=== PATIENT | female | born 1965 | race Caucasian/White ===

== ENCOUNTER 2019-05-28 09:38 | Inpatient (IN) | payer BC, OTHER ==
[2019-05-28] MEDS ORDERED: ACETAMINOPHEN TAB 500 MG TAB PO STA (10:12)
[2019-05-28] MEDS ORDERED: LEVOFLOXACIN 750MG-D5W PMX 750 MG in DEXTROSE/WATER 1 150ML.BAG IVPB STA (10:12)
[2019-05-28] MEDS ORDERED: VANCOMYCIN IV PER PHARMACY 1 EACH MISC MISCELLANE PRN (10:12)
[2019-05-28] MEDS ORDERED: VANCOMYCIN 2,000 MG in SODIUM CHLORIDE 0.9% 500 ML 500 ML IVPB STA (10:17)
[2019-05-28] MEDS: SODIUM CHLORIDE 0.9% 500 ML 500 ML IV SCH ×4 (10:35→13:22)
[2019-05-28 10:40] LABS: Basophils # (A) 0.1 k/uL (0-0.2); Basophils % (A) 1 %; Eosinophils # (A) 0.2 k/uL (0-0.7); Eosinophils % (A) 2 %; HCT 38.5 % (34.0-46.0); HGB 12.2 gm/dL (11.4-16.0); Lymphocytes % (A) 10 %; MCH 28.4 pg (25.0-35.0); MCHC 31.7 g/dL (31.0-37.0); MCV 89.6 fL (80.0-100.0); Mean Platelet Volume 6.7; Monocytes # (A) 0.6 k/uL (0-1.0); Monocytes % (A) 6 %; Neutrophils # (A) 7.7 k/uL (1.3-7.7); Neutrophils % (A) 80 %; Platelet Count 526 k/uL (150-450); RBC 4.29 m/uL (3.80-5.40); RDW 15.2 % (11.5-15.5); WBC 9.7 k/uL (3.8-10.6)
--- NOTE | 2019-05-28 10:45 | ED ---
Skin/Abscess/FB HPI - General Chief complaint: Skin/Abscess/Foreign Body Stated complaint: Cellulitis Time Seen by Provider: 05/28/19 09:55 Source: patient, RN notes reviewed, old records reviewed Mode of arrival: ambulatory Limitations: no limitations - History of Present Illness Initial comments: Patient is a 4-year-old female who presents emergency Department stay for evaluation with complaints of left lower extremity swelling or redness. Patient reports that she's been having symptoms for the past 2 weeks. She's been on oral Bactrim for the past week without any significant improvement. Patient states that she's had some chills. She's had history of recurrent cellulitis leg. - Related Data Home Medications Medication Instructions Recorded Confirmed Furosemide [Lasix] 40 mg PO DAILY 05/28/19 05/28/19 Lisinopril 40 mg PO DAILY 05/28/19 05/28/19 Metoprolol Tartrate [Lopressor] 100 mg PO BID 05/28/19 05/28/19 glipiZIDE [Glucotrol] 5 mg PO DAILY 05/28/19 05/28/19 hydrALAZINE HCL 10 mg PO TID 05/28/19 05/28/19 metFORMIN HCL 850 mg PO BID 05/28/19 05/28/19 Allergies Allergy/AdvReac Type Severity Reaction Status Date / Time Penicillins Allergy Unknown Unknown Verified 05/28/19 10:47 Childhood Review of Systems ROS Statement: Those systems with pertinent positive or pertinent negative responses have been documented in the HPI. ROS Other: All systems not noted in ROS Statement are negative. Past Medical History Past Medical History: Diabetes Mellitus, Hypertension Additional Past Medical History / Comment(s): venous leg ulcers,tongue tumor History of Any Multi-Drug Resistant Organisms: None Reported Past Surgical History: No Surgical Hx Reported Past Anesthesia/Blood Transfusion Reactions: No Reported Reaction Past Psychological History: No Psychological Hx Reported Smoking Status: Former smoker Past Alcohol Use History: None Reported Past Drug Use History: None Reported - Past Family History Father Family Medical History: Cancer Mother Family Medical History: Cancer General Exam - General Exam Comments Initial Comments: Is an 54-year-old female. No acute distress. Alert and oriented 3. Limitations: no limitations General appearance: alert, in no apparent distress Head exam: Present: atraumatic Eye exam: Present: normal appearance, PERRL, EOMI. Absent: scleral icterus, conjunctival injection, periorbital swelling ENT exam: Present: normal exam, mucous membranes moist Neck exam: Present: normal inspection. Absent: tenderness, meningismus, lymphadenopathy Respiratory exam: Present: normal lung sounds bilaterally. Absent: respiratory distress, wheezes, rales, rhonchi, stridor Cardiovascular Exam: Present: regular rate, normal rhythm, normal heart sounds. Absent: systolic murmur, diastolic murmur, rubs, gallop, clicks GI/Abdominal exam: Present: soft, normal bowel sounds. Absent: distended, tenderness, guarding, rebound, rigid Extremities exam: Present: normal inspection, full ROM, normal capillary refill. Absent: tenderness, pedal edema, joint swelling, calf tenderness Left Lower Leg exam: Present: tenderness, swelling, erythema (Circumferential erythema with evidence of ulcerations over the dorsum of the anterior lower leg. Legs indurated.). Absent: normal inspection Ankle exam: Present: swelling Neurovascular tendon exam: Present: no vascular compromise (Capillary refills less than 2 seconds. Dorsalis pedis pulse palpable.) Gait: observed and normal Back exam: Present: normal inspection Neurological exam: Present: alert, oriented X3, CN II-XII intact Psychiatric exam: Present: normal affect, normal mood Skin exam: Present: warm, dry, intact, normal color. Absent: rash Course Vital Signs 05/28/19 09:42 Temperature 98.0 F Pulse Rate 87 Respiratory 20 Rate Blood Pressure 169/91 O2 Sat by Pulse 97 Oximetry Medical Decision Making - Medical Decision Making 34-year-old female with close to 2 weeks of left lower extremity redness and swelling. She is on oral Bactrim for the past week with no significant improvement. At this time she has circumferential cellulitis. Ultrasound was completed and negative for DVT. Patient x-ray shows evidence of soft tissue swelling concern for cellulitis. White blood cell count is within normal limits. Vital signs are stable. Given 5 patient's been on oral Bactrim for the past week with significant sialitis we admit the Patient for failure of outpatient treatment. She was given 1 dose of Levaquin due to ALLERGY to penicillins, blood cultures were completed. She started on vancomycin as well. Patient will be admitted this time consult to infectious disease. is also noted to have elevated potassium of 5.5. EKG was performed. Patient was given a dose of Kayexalate. Also noted signs of acute kidney injury, be on a 50, currently 2.62. This is increased from patient's last labs. Patient is given 2 L bolus. - Lab Data Result diagrams: 05/28/19 10:21 05/28/19 10:21 Lab Results 05/28/19 05/28/19 05/28/19 Range/Units 10:21 10:21 10:21 WBC 9.7 (3.8-10.6) k/uL RBC 4.29 (3.80-5.40) m/uL Hgb 12.2 (11.4-16.0) gm/dL Hct 38.5 (34.0-46.0) % MCV 89.6 (80.0-100.0) fL MCH 28.4 (25.0-35.0) pg MCHC 31.7 (31.0-37.0) g/dL RDW 15.2 (11.5-15.5) % Plt Count 526 H (150-450) k/uL Neutrophils % 80 % Lymphocytes % 10 % Monocytes % 6 % Eosinophils % 2 % Basophils % 1 % Neutrophils # 7.7 (1.3-7.7) k/uL Lymphocytes # 1.0 (1.0-4.8) k/uL Monocytes # 0.6 (0-1.0) k/uL Eosinophils # 0.2 (0-0.7) k/uL Basophils # 0.1 (0-0.2) k/uL PT 9.8 (9.0-12.0) sec INR 0.9 (<1.2) APTT 19.7 L (22.0-30.0) sec Sodium 144 (137-145) mmol/L Potassium 5.5 H (3.5-5.1) mmol/L Chloride 109 H (98-107) mmol/L Carbon Dioxide 24 (22-30) mmol/L Anion Gap 11 mmol/L BUN 50 H (7-17) mg/dL Creatinine 2.42 H (0.52-1.04) mg/dL Est GFR (CKD-EPI)AfAm 25 (>60 ml/min/1.73 sqM) Est GFR (CKD-EPI)NonAf 22 (>60 ml/min/1.73 sqM) Glucose 97 (74-99) mg/dL Plasma Lactic Acid Alon (0.7-2.0) mmol/L Calcium 9.2 (8.4-10.2) mg/dL Total Bilirubin 0.5 (0.2-1.3) mg/dL AST 30 (14-36) U/L ALT 27 (9-52) U/L Alkaline Phosphatase 126 (38-126) U/L Total Protein 7.7 (6.3-8.2) g/dL Albumin 3.4 L (3.5-5.0) g/dL Urine Color Urine Appearance (Clear) Urine pH (5.0-8.0) Ur Specific [place] (1.001-1.035) Urine Protein (Negative) Urine Glucose (UA) (Negative) Urine Ketones (Negative) Urine Blood (Negative) Urine Nitrite (Negative) Urine Bilirubin (Negative) Urine Urobilinogen (<2.0) mg/dL Ur Leukocyte Esterase (Negative) 05/28/19 05/28/19 Range/Units 10:27 10:46 WBC (3.8-10.6) k/uL RBC (3.80-5.40) m/uL Hgb (11.4-16.0) gm/dL Hct (34.0-46.0) % MCV (80.0-100.0) fL MCH (25.0-35.0) pg MCHC (31.0-37.0) g/dL RDW (11.5-15.5) % Plt Count (150-450) k/uL Neutrophils % % Lymphocytes % % Monocytes % % Eosinophils % % Basophils % % Neutrophils # (1.3-7.7) k/uL Lymphocytes # (1.0-4.8) k/uL Monocytes # (0-1.0) k/uL Eosinophils # (0-0.7) k/uL Basophils # (0-0.2) k/uL PT (9.0-12.0) sec INR (<1.2) APTT (22.0-30.0) sec Sodium (137-145) mmol/L Potassium (3.5-5.1) mmol/L Chloride (98-107) mmol/L Carbon Dioxide (22-30) mmol/L Anion Gap mmol/L BUN (7-17) mg/dL Creatinine (0.52-1.04) mg/dL Est GFR (CKD-EPI)AfAm (>60 ml/min/1.73 sqM) Est GFR (CKD-EPI)NonAf (>60 ml/min/1.73 sqM) Glucose (74-99) mg/dL Plasma Lactic Acid Alon 1.1 (0.7-2.0) mmol/L Calcium (8.4-10.2) mg/dL Total Bilirubin (0.2-1.3) mg/dL AST (14-36) U/L ALT (9-52) U/L Alkaline Phosphatase (38-126) U/L Total Protein (6.3-8.2) g/dL Albumin (3.5-5.0) g/dL Urine Color Colorless Urine Appearance Clear (Clear) Urine pH 5.0 (5.0-8.0) Ur Specific [place] 1.007 (1.001-1.035) Urine Protein Negative (Negative) Urine Glucose (UA) Negative (Negative) Urine Ketones Negative (Negative) Urine Blood Negative (Negative) Urine Nitrite Negative (Negative) Urine Bilirubin Negative (Negative) Urine Urobilinogen <2.0 (<2.0) mg/dL Ur Leukocyte Esterase Negative (Negative) - Radiology Data Radiology results: report reviewed Ultrasound is negative for DVT in left lower extremity. Tib-fib x-ray shows soft tissue swelling. Correlating for cellulitis. Also arthritis noted. Disposition Clinical Impression: Left leg cellulitis, Failure of outpatient treatment, Diabetes, MANINDER (acute kidney injury), Hyperkalemia Disposition: ADMITTED IP TO THIS HOSP Condition: Stable Is patient prescribed a controlled substance at d/c from ED?: No Referrals: Candida Aquino MD [Primary Care Provider] - 1-2 days Time of Disposition: 11:28
[2019-05-28 10:49] LABS: Albumin 3.4 g/dL (3.5-5.0); Calcium 9.2 mg/dL (8.4-10.2); Potassium 5.5 mmol/L (3.5-5.1); Total Bilirubin 0.5 mg/dL (0.2-1.3); Total Protein 7.7 g/dL (6.3-8.2)
[2019-05-28 10:58] LABS: Appearance,Urine Clear (Clear); Bilirubin,Urine Negative (Negative); Blood,Urine Negative (Negative); Color,Urine Colorless; Glucose,Urine (UA) Negative (Negative); Ketones,Urine Negative (Negative); Leukocyte Esterase,Urine Negative (Negative); Nitrite,Urine Negative (Negative); Protein,Urine Negative (Negative); Specific Gravity,Urine 1.007 (1.001-1.035); Urobilinogen,Urine <2.0 mg/dL (<2.0)
[2019-05-28 10:58] LABS: INR 0.9 (<1.2); Prothrombin Time 9.8 sec (9.0-12.0)
[2019-05-28 10:59] LABS: Partial Thromboplastin Time 19.7 sec (22.0-30.0)
--- NOTE | 2019-05-28 11:08 | XR ---
Left leg HISTORY: Pain, erythema, swelling 2 views of the left leg and 4 images Osteophytic change is present in the left knee. Soft tissue swelling is noted. Bone mineralization is reduced. Alignment is maintained. No fracture or dislocation. There is a plantar calcaneal spur. Ost eophytic change also present tibiotalar joint. IMPRESSION: Soft tissue swelling, correlate for cellulitis. Osteoarthritis.
--- NOTE | 2019-05-28 11:19 | US ---
EXAMINATION TYPE: US venous doppler duplex LE LT DATE OF EXAM: 05/28/2019 10:14 AM COMPARISON: NONE CLINICAL HISTORY: Pain. Left lower leg redness and swelling. Hx cellulitis and open wound. No hx bl ood clots or on blood thinners. SIDE PERFORMED: Left TECHNIQUE: The lower extremity deep venous system is examined utilizing real time linear array sonog malinda with graded compression, doppler sonography and color-flow sonography. VESSELS IMAGED: External Iliac Vein (EIV) Common Femoral Vein Deep Femoral Vein Greater Saphenous Vein * Femoral Vein Popliteal Vein Small Saphenous Vein * Proximal Calf Veins- limited visualization (* superficial vessels) Left Leg: Negative for DVT Grayscale, color doppler, spectral doppler imaging performed of the deep veins of the left lower extr emity. There is normal flow, compressibility, vascular waveforms. IMPRESSION: No ultrasound evidence for acute DVT in the left lower extremity.
[2019-05-28] MEDS ORDERED: SODIUM POLYSTYRENE SULFONATE 15 GM/60 ML BOTTLE PO STA (11:27)
[2019-05-28] MEDS ORDERED: ONDANSETRON 4 MG/2 ML VIAL IVP PRN (12:01)
[2019-05-28] MEDS ORDERED: NALOXONE 0.4 MG/ML 1 ML VIAL IV PRN (12:01)
[2019-05-28] MEDS ORDERED: ACETAMINOPHEN TAB 325 MG TAB PO PRN (12:01)
[2019-05-28] MEDS: Acetaminophen-Codeine 300-30mg TAB PO PRN ×3 (13:49→23:39)
[2019-05-28] MEDS: SODIUM CHLORIDE 0.9% 1,000 ML IV SCH ×2 (14:12→20:43)
[2019-05-28] MEDS ORDERED: METOPROLOL TARTRATE 25 MG TAB PO STA (15:31)
[2019-05-28 16:03] VITALS: BMI 40.7
[2019-05-28 17:24] LABS: Glucose,Whole Blood 128 mg/dL (75-99)
[2019-05-28] MEDS: metFORMIN 850 MG TAB PO SCH (20:38)
[2019-05-28] MEDS: hydrALAZINE HCL 10 MG TAB PO SCH (20:38)
[2019-05-28] MEDS: METOPROLOL TARTRATE 50 MG TAB PO SCH (20:42)
[2019-05-28 21:40] LABS: Glucose,Whole Blood 134 mg/dL (75-99)
--- NOTE | 2019-05-28 23:05 | HP ---
HISTORY AND PHYSICAL CHIEF COMPLAINT: Progressive cellulitis of the lower extremities. HISTORY OF PRESENT ILLNESS: This is another visit for this 54-year-old white female. She has diabetes mellitus and kidney disease. She has had this problem before and has been treated in this hospital as an outpatient, but it steadily was getting worse and causing more and more pain and discomfort. It is worse in the left leg than the right. REVIEW OF SYSTEMS: She has had no CVAs, TIAs, neurologic problems, change in vision or hearing, shaking, chills, chest pain, shortness of breath, cough, hemoptysis, sputum production, murmurs, rheumatic fever, angina, infarctions, etc. She does have high blood pressure. She has had no abdominal pain, food intolerance, nausea, vomiting, hematemesis, melena, hematochezia, colitis, diverticulosis, diverticulitis, hemorrhoids, jaundice, dysuria, hematuria, incontinence, etc. Her diabetes is apparently fairly well controlled. Past medical history, family history, personal and social histories reveal that she is: ALLERGIES: PENICILLIN. CURRENT MEDICATIONS: Include: Lasix 40 mg once a day, glipizide 5 mg once a day, hydralazine 10 mg t.i.d., lisinopril 40 mg once a day, metformin 850 mg b.i.d., and metoprolol 100 mg b.i.d. Surgically she has had she had tumor removed from her tongue and had delivery of 1 child in the past. She is awake. She has had only 1 and 1 delivery. She does not smoke. PHYSICAL EXAM: Blood pressure is 169/91 with a pulse of 87, respirations 20 and she is afebrile. In general, she appeared to be well developed, well nourished, in no acute distress. Skin color is normal. Skin is warm, dry. Lymph nodes are not enlarged. Head, ears, eyes, nose, mouth, and throat were normal. Neck veins are not distended. Thyroid is not enlarged. Chest is clear. Cardiac exam is normal sinus rhythm and no murmurs or extra sounds. The abdomen is slightly protuberant, soft, nontender without visceromegaly or masses. Extremities demonstrated extensive cellulitis and edema in both lower legs between the ankles and the knees, which is much worse on the left than on the right. There is some weeping on the left. Neurologically she is intact. Pulses good. IMPRESSION: 1. Cellulitis of the lower extremities. 2. Diabetes mellitus. 3. Hypertension. 4. Chronic kidney disease. PLAN: 1. Bed rest. 2. IV fluids and IV antibiotics. 3. Consult with Infectious Disease and Med renal. DEMETRICE / PHILL: [id number] /
[2019-05-29 07:13] LABS: Glucose,Whole Blood 176 mg/dL (75-99)
[2019-05-29] MEDS: oxyCODONE-APAP 5-325MG 1 EACH TAB PO PRN ×4 (07:36→23:48)
[2019-05-29] MEDS: LISINOPRIL 20 MG TAB PO SCH (07:37)
[2019-05-29] MEDS: FUROSEMIDE 40 MG TAB PO SCH (07:37)
[2019-05-29] MEDS: hydrALAZINE HCL 10 MG TAB PO SCH ×3 (07:37→20:20)
[2019-05-29] MEDS: glipiZIDE 5 MG TAB PO SCH (07:37)
[2019-05-29] MEDS: metFORMIN 850 MG TAB PO SCH (07:37)
[2019-05-29] MEDS: METOPROLOL TARTRATE 50 MG TAB PO SCH ×2 (07:37→20:20)
--- NOTE | 2019-05-29 07:53 | P.CONS ---
History of Present Illness - Reason for Consult Consult date: 05/28/19 Left lower extremity cellulitis Requesting physician: Pete Kuo - Chief Complaint Left leg pain swelling and redness x few days - History of Present Illness Patient is 54-year-old female past medical history significant for left lower extremity cellulitis presenting to the ER at [facility] with chief complaints of left leg swelling redness and pain the patient says she was recently treated with an antibiotic by mouth and she did have some initial improvement however over the last few days she noticed to have more swelling redness and pain to the left leg syndrome the pain to be more of sharp/ burning pain with intensity 6 out of 10 and no radiation patient currently do not have any blisters or any open wound or any drainage she has been complaining of some chills but denies high-grade fever with the symptoms patient was evaluated by the ER physician patient did have lower extremity Doppler was negative for DVT patient did not have high-grade fever, her white count was normal patient did have elevated creatinine 2.4 patient has been started on IV vancomycin and did received a dose of Levaquin in the ER because of penicillin ALLERGY infectious disease was consulted for further recommendations regarding antibiotics Review of Systems Positive points has been mentioned in HPI rest of the systems are negative Past Medical History Past Medical History: Diabetes Mellitus, Eye Disorder, Hypertension, Renal Disease, Vascular Disorder Additional Past Medical History / Comment(s): NIDDM type II, neuropathy bilateral feet, recurrent cellulitis bilateral legs with left leg worse, past bilateral venous leg ulcers, varicosities bilaterally, 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 History of Any Multi-Drug Resistant Organisms: None Reported Past Surgical History: Tonsillectomy Additional Past Surgical History / Comment(s): Peripheral access/procedure to improve blood flow thru tongue x3 Past Anesthesia/Blood Transfusion Reactions: No Reported Reaction Smoking Status: Never smoker - Past Family History Father Family Medical History: Cancer Additional Family Medical History / Comment(s): Father had throat cancer. He is . He was a smoker. Mother Family Medical History: Cancer Additional Family Medical History / Comment(s): Mother had breast and lung cancer. She was a smoker. She is . Medications and Allergies Home Medications Medication Instructions Recorded Confirmed Type Furosemide [Lasix] 40 mg PO DAILY 05/28/19 05/28/19 History Lisinopril 40 mg PO DAILY 05/28/19 05/28/19 History Metoprolol Tartrate [Lopressor] 100 mg PO BID 05/28/19 05/28/19 History glipiZIDE [Glucotrol] 5 mg PO DAILY 05/28/19 05/28/19 History hydrALAZINE HCL 10 mg PO TID 05/28/19 05/28/19 History metFORMIN HCL 850 mg PO BID 05/28/19 05/28/19 History Allergies Allergy/AdvReac Type Severity Reaction Status Date / Time Penicillins Allergy Unknown Unknown Verified 05/28/19 10:47 Childhood Physical Exam Vitals: Vital Signs Temp Pulse Pulse Pulse Resp BP BP 05/29/19 06:13 97.7 F 82 15 05/28/19 21:30 97.8 F 88 20 05/28/19 17:40 18 05/28/19 16:15 98.2 F 88 20 181/101 05/28/19 15:30 97.7 F 87 18 168/98 05/28/19 13:45 98.0 F 76 16 164/89 05/28/19 09:42 98.0 F 87 20 169/91 BP Pulse Ox 05/29/19 06:13 167/106 05/28/19 21:30 166/78 98 05/28/19 17:40 05/28/19 16:15 97 05/28/19 15:30 96 05/28/19 13:45 99 05/28/19 09:42 97 Intake and Output 05/28/19 05/29/19 05/29/19 22:59 06:59 14:59 Intake Total 200 Balance 200 Intake: Oral 200 Other: # Voids 2 GENERAL DESCRIPTION: Middle-aged female lying in bed, no distress. No tachypnea or accessory muscle of respiration use. HEENT: Shows Pallor , no scleral icterus. Oral mucous membrane is dry. No pharyngeal erythema or thrush NECK: Trachea central, no thyromegaly. LUNGS: Unlabored breathing. Clear to auscultation anteriorly. No wheeze or crackle. HEART: S1, S2, regular rate and rhythm. No loud murmur ABDOMEN: Soft, no tenderness , guarding or rigidity, no organomegaly EXTREMITIES: Diffuse swelling and redness of her left leg with warmth no open wound or any drainage SKIN: No rash, no masses palpable. NEUROLOGICAL: The patient is awake, alert, oriented x3, mood and affect normal. Results CBC & Chem 7: 05/28/19 10:21 05/28/19 10:21 Labs: Abnormal Lab Results - Last 24 Hours (Table) 05/28/19 05/28/19 05/28/19 Range/Units 10:21 10:21 10:21 Plt Count 526 H (150-450) k/uL APTT 19.7 L (22.0-30.0) sec Potassium 5.5 H (3.5-5.1) mmol/L Chloride 109 H (98-107) mmol/L BUN 50 H (7-17) mg/dL Creatinine 2.42 H (0.52-1.04) mg/dL POC Glucose (mg/dL) (75-99) mg/dL Albumin 3.4 L (3.5-5.0) g/dL 05/28/19 05/28/19 05/29/19 Range/Units 17:18 21:29 07:11 Plt Count (150-450) k/uL APTT (22.0-30.0) sec Potassium (3.5-5.1) mmol/L Chloride (98-107) mmol/L BUN (7-17) mg/dL Creatinine (0.52-1.04) mg/dL POC Glucose (mg/dL) 128 H 134 H 176 H (75-99) mg/dL Albumin (3.5-5.0) g/dL Microbiology - Last 24 Hours (Table) 05/28/19 10:27 Urine Culture - Preliminary Urine,Voided Assessment and Plan Assessment: 1-patient admitted to hospital with diffuse swelling and redness to left lower extremity-in this patient who did have a component of cellulitis failing outpatient antibiotics however the patient not very clear about what antibiotic she received, with diffuse swelling redness likely suspicious for streptococcal cellulitis clinically doubt MRSA infection 2-patient with penicillin ALLERGY that would limit the number of antibiotic safe to use 3 patient with elevated creatinine high risk of nephrotoxicity from the vancomycin- Plan: 1- henri the area of the redness 2-discontinue the vancomycin 3-start the patient cefazolin 2 g every 8 hours 4-left leg elevation we will follow on clinical condition and culture to further adjust medication if needed Thank you for this consultation will follow this patient along with you Time with Patient: Greater than 30
[2019-05-29] MEDS: SODIUM CHLORIDE 0.9% 1,000 ML IV SCH (08:56)
[2019-05-29] MEDS ORDERED: VANCOMYCIN 2,000 MG in SODIUM CHLORIDE 0.9% 500 ML 500 ML IVPB ONE (09:00)
[2019-05-29 11:57] LABS: Glucose,Whole Blood 139 mg/dL (75-99)
[2019-05-29] MEDS ORDERED: hydrALAZINE HCL 20 MG/ML 1 ML VIAL IVP PRN (14:32)
--- NOTE | 2019-05-29 14:35 | P.NPCON ---
History of Present Illness - Reason for Consult acute renal failure - History of Present Illness Reason for consultation: Acute kidney injury on chronic kidney disease History of present illness: Patient is a 54-year-old female seen in consultation for acute kidney injury and chronic kidney disease. Patient has chronic kidney disease stage III with baseline creatinine near 1.6. Creatinine was 2.4-1 admission and is down to 2.0 today. Patient presented to the hospital due to erythema in her left lower extremity. Patient states it was hard for her to stand and she noticed worsening of erythema over the last few days. Patient states she has taken Bactrim for about one week now with no significant improvement in her leg. She has been voiding. No hematuria or dysuria. Denies regular use of no nsteroidals. She does a history of diabetes mellitus that was diagnosed over 10 years ago. Oral intake has been fair. No vomiting or diarrhea. She is currently maintained on normal saline at 100 mL an hour. Hemodynamically she is stable. Her blood pressures are on the higher side. Vital signs are stable. General: The patient appeared well nourished and normally developed. HEENT: Head exam is unremarkable. Neck is without jugular venous distension. LUNGS: Lungs are clear to auscultation and percussion. Breath sounds decreased. HEART: Rate and Rhythm are regular. First and second heart sounds normal. No murmurs, rubs or gallops. ABDOMEN: Abdominal exam reveals normal bowel sounds. Non-tender and non- distended. No evidence of peritonitis. EXTREMITITES: Left lower extremity erythema noted. 2+ edema. No active drainage. 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 History of Any Multi-Drug Resistant Organisms: None Reported Past Surgical History: Tonsillectomy Additional Past Surgical History / Comment(s): Peripheral access/procedure to improve blood flow thru tongue x3 Past Anesthesia/Blood Transfusion Reactions: No Reported Reaction Smoking Status: Never smoker - Past Family History Father Family Medical History: Cancer Additional Family Medical History / Comment(s): Father had throat cancer. He is . He was a smoker. Mother Family Medical History: Cancer Additional Family Medical History / Comment(s): Mother had breast and lung cancer. She was a smoker. She is . Medications and Allergies Home Medications Medication Instructions Recorded Confirmed Type Furosemide [Lasix] 40 mg PO DAILY 05/28/19 05/28/19 History Lisinopril 40 mg PO DAILY 05/28/19 05/28/19 History Metoprolol Tartrate [Lopressor] 100 mg PO BID 05/28/19 05/28/19 History glipiZIDE [Glucotrol] 5 mg PO DAILY 05/28/19 05/28/19 History hydrALAZINE HCL 10 mg PO TID 05/28/19 05/28/19 History metFORMIN HCL 850 mg PO BID 05/28/19 05/28/19 History Allergies Allergy/AdvReac Type Severity Reaction Status Date / Time Penicillins Allergy Unknown Unknown Verified 05/28/19 10:47 Childhood Physical Exam Vitals: Vital Signs Temp Pulse Pulse Pulse Resp BP BP 05/29/19 06:13 97.7 F 82 15 05/28/19 21:30 97.8 F 88 20 05/28/19 17:40 18 05/28/19 16:15 98.2 F 88 20 181/101 05/28/19 15:30 97.7 F 87 18 168/98 BP Pulse Ox 05/29/19 06:13 167/106 05/28/19 21:30 166/78 98 05/28/19 17:40 05/28/19 16:15 97 05/28/19 15:30 96 Intake and Output 05/28/19 05/29/19 05/29/19 22:59 06:59 14:59 Intake Total 200 850 Balance 200 850 Intake: IV 850 Sodium Chloride 0.9% 1, 800 000 ml @ 100 mls/hr IV . Q10H ANNMARIE Rx#:[id number] ceFAZolin 2 gm In Sodium 50 Chloride 0.9% 50 ml @ 100 mls/hr IVPB Q8HR ANNMARIE Rx# :[id number] Oral 200 Other: # Voids 2 Results - Lab Results Most recent lab results Calcium 9.2 mg/dL (8.4-10.2) 05/28/19 10:21 05/28/19 10:21 05/29/19 09:32 Assessment and Plan Plan: Assessment: 1. Acute kidney injury mostly prerenal secondary to infection as well as from the use of Bactrim which will impair creatinine secretion. Creatinine was 2.4-1 admission and is 2.0 today. UA is benign. 2. Chronic kidney disease stage III with baseline creatinine near 1.6. Etiology is nephrosclerosis. 3. Hyperkalemia secondary to acute kidney injury and further worsened with the use of lisinopril and Bactrim. 4. Diabetes mellitus. 5. Hypertension with chronic kidney disease. 6. Left lower extremity cellulitis maintained on antibiotics. Plan: Hep-Lock IV fluids. Resume Lasix 40 mg orally once daily. Avoid nephrotoxins. Hold metformin as GFR is less than 30. Continue lisinopril as blood pressure is on the higher side. Repeat electrolytes in the morning. Thank you for the consultation. I will continue to follow the patient with you during his hospital stay.
--- NOTE | 2019-05-29 18:02 | PN ---
PROGRESS NOTE DATE OF SERVICE: 05/29/2019. REASON FOR FOLLOWUP: Left lower extremity cellulitis. INTERVAL HISTORY: The patient is currently afebrile. Patient has been breathing comfortably. Denies any chest pain or any cough or abdominal pain. Overall pain and swelling and redness of the slightly decreased. No open wound or drainage. PHYSICAL EXAMINATION: Blood pressure 187/96, pulse of 84, temperature 97.8. She is 98% on room air. General description is a middle aged female lying in bed in no distress. Respiratory system: Unlabored breathing: Clear to auscultation anteriorly. Heart S1, S2. Regular rate and rhythm. Abdomen soft, no tenderness. Left leg swelling and redness with minimal decrease. LABS: No new labs have been obtained today. Blood cultures have been negative so far. DIAGNOSTIC IMPRESSION AND PLAN: Patient with acute left lower extremity cellulitis with diffuse swelling and redness likely streptococcal disease. Continue with cefazolin 2 g q.8 hours. We will add Sid wrap to the leg to keep some of the swelling down and reevaluate the patient tomorrow. Continue supportive care. MMODL / IJN: [id number] /
--- NOTE | 2019-05-29 21:14 | PN ---
PROGRESS NOTE CHIEF COMPLAINT: Cellulitis lower extremities. HISTORY OF PRESENT ILLNESS: This lady is just about the same. There has been no significant clinical change in her lower legs since yesterday. She has had no chills, fever, shortness of breath, etc. PHYSICAL EXAM: Legs are still just about the same with extensive erythema of both lower legs with the left being worse than the right. Chest is clear and cardiac exam is normal. Abdomen is soft and nontender. IMPRESSION: 1. Extensive cellulitis of the lower extremities. 2. Venous stasis disease. 3. Renal failure. PLAN: No change in program and continue with IV fluids and elevation and antibiotics. MMODL / IJN: [id number] /
[2019-05-29 21:57] LABS: Glucose,Whole Blood 170 mg/dL (75-99)
[2019-05-30] MEDS: oxyCODONE-APAP 5-325MG 1 EACH TAB PO PRN ×4 (06:00→23:31)
[2019-05-30 07:02] LABS: Glucose,Whole Blood 120 mg/dL (75-99)
[2019-05-30] MEDS: METOPROLOL TARTRATE 50 MG TAB PO SCH ×2 (09:01→21:17)
[2019-05-30] MEDS: LISINOPRIL 20 MG TAB PO SCH (09:01)
[2019-05-30] MEDS: FUROSEMIDE 40 MG TAB PO SCH (09:01)
[2019-05-30] MEDS: hydrALAZINE HCL 10 MG TAB PO SCH ×3 (09:01→21:17)
[2019-05-30] MEDS: glipiZIDE 5 MG TAB PO SCH (09:01)
[2019-05-30] MEDS: DOCUSATE 100 MG CAP PO SCH ×2 (09:26→21:17)
--- NOTE | 2019-05-30 10:46 | P.PN ---
Subjective Progress Note Date: 05/30/19 Seen and examined for the follow-up of acute kidney injury. Objective - Vital Signs Vital signs: Vital Signs Temp 97.5 F L 05/30/19 05:33 Pulse 87 05/30/19 05:33 Resp 22 05/30/19 05:33 BP 177/100 05/30/19 05:33 Pulse Ox 96 05/30/19 05:33 Intake & Output 05/29/19 05/30/19 05/30/19 18:59 06:59 18:59 Intake Total 850 Balance 850 Intake: IV 850 Sodium Chloride 0.9% 1, 800 000 ml @ 100 mls/hr IV . Q10H ANNMARIE Rx#:[id number] ceFAZolin 2 gm In Sodium 50 Chloride 0.9% 50 ml @ 100 mls/hr IVPB Q8HR ANNMARIE Rx# :[id number] Other: Voiding Method Toilet # Voids 1 # Bowel Movements 0 - Exam No acute distress S1-S2 heard Lungs clear Lower extremity edema and redness - Labs CBC & Chem 7: 05/28/19 10:21 05/29/19 14:10 Labs: Abnormal Lab Results - Last 24 Hours (Table) 05/29/19 05/29/19 05/30/19 Range/Units 11:56 21:55 06:54 POC Glucose (mg/dL) 139 H 170 H 120 H (75-99) mg/dL Microbiology - Last 24 Hours (Table) 05/28/19 10:27 Urine Culture - Final Urine,Voided 05/28/19 10:21 Blood Culture - Preliminary Blood No Growth after 24 hours Assessment and Plan Assessment: #1 acute kidney injury secondary to septic ATN and Bactrim. #2 chronic kidney disease stage III with a baseline creatinine of 1.6 MG per DL suspect nephrosclerosis #3 hyperkalemia secondary to acute kidney injury and Bactrim and lisinopril. #4 diabetes #5 lower extremity edema and cellulitis Plan: #1 creatinine improving. #2 stop lisinopril. Add Procardia for blood pressure control #3 continue with Lasix 40 mg daily. #4 avoid nephrotoxic agents and hypotensive episodes. #5 check labs in the morning
[2019-05-30 12:03] LABS: Glucose,Whole Blood 129 mg/dL (75-99)
--- NOTE | 2019-05-30 13:55 | PN ---
PROGRESS NOTE CHIEF COMPLAINT: Cellulitis of the lower extremities. HISTORY OF PRESENT ILLNESS: This lady's right leg actually looks a little bit better, but the left looks worse. It is slightly more erythematous and edematous and a little bit more painful. PHYSICAL EXAMINATION: She is afebrile. Right leg is improved. The left leg demonstrates no significant improvement and is actually more erythematous and swollen proximally. Peripheral circulation is still adequate. IMPRESSION: Cellulitis of the lower extremities with the left being worse than the right. PLAN: Continue with elevation and IV antibiotics. MMODL / IJN: [id number] /
[2019-05-30 17:07] LABS: Glucose,Whole Blood 180 mg/dL (75-99)
[2019-05-30 20:36] LABS: Glucose,Whole Blood 159 mg/dL (75-99)
[2019-05-31 07:04] LABS: Glucose,Whole Blood 133 mg/dL (75-99)
[2019-05-31] MEDS: hydrALAZINE HCL 10 MG TAB PO SCH ×3 (07:54→20:27)
[2019-05-31] MEDS: glipiZIDE 5 MG TAB PO SCH (07:54)
[2019-05-31] MEDS: METOPROLOL TARTRATE 50 MG TAB PO SCH ×2 (07:55→20:27)
[2019-05-31] MEDS: oxyCODONE-APAP 5-325MG 1 EACH TAB PO PRN ×3 (07:55→19:37)
[2019-05-31] MEDS: DOCUSATE 100 MG CAP PO SCH ×2 (07:55→20:27)
[2019-05-31] MEDS: FUROSEMIDE 40 MG TAB PO SCH (07:55)
[2019-05-31 11:45] LABS: Calcium 8.7 mg/dL (8.4-10.2); Potassium 4.3 mmol/L (3.5-5.1)
--- NOTE | 2019-05-31 11:59 | P.PN ---
Subjective Progress Note Date: 05/31/19 Seen and examined for the follow-up of acute kidney injury. c/o lower extremity swelling not improving. Objective - Vital Signs Vital signs: Vital Signs Temp 97.3 F L 05/31/19 05:00 Pulse 86 05/31/19 05:00 Resp 18 05/31/19 05:00 BP 139/82 05/31/19 05:00 Pulse Ox 96 05/31/19 05:00 Intake & Output 05/30/19 05/31/19 05/31/19 18:59 06:59 18:59 Intake Total 900 Balance 900 Intake: Oral 900 Other: Voiding Method Toilet Toilet # Voids 1 1 1 # Bowel Movements 0 - Exam No acute distress S1-S2 heard Lungs clear Lower extremity edema and redness - Labs CBC & Chem 7: 05/28/19 10:21 05/31/19 11:14 Labs: Abnormal Lab Results - Last 24 Hours (Table) 05/30/19 05/30/19 05/30/19 Range/Units 11:55 17:01 20:30 Chloride (98-107) mmol/L BUN (7-17) mg/dL Creatinine (0.52-1.04) mg/dL Glucose (74-99) mg/dL POC Glucose (mg/dL) 129 H 180 H 159 H (75-99) mg/dL 05/31/19 05/31/19 Range/Units 06:55 11:14 Chloride 110 H (98-107) mmol/L BUN 34 H (7-17) mg/dL Creatinine 1.78 H (0.52-1.04) mg/dL Glucose 160 H (74-99) mg/dL POC Glucose (mg/dL) 133 H (75-99) mg/dL Microbiology - Last 24 Hours (Table) 05/28/19 10:21 Blood Culture - Preliminary Blood No Growth after 48 hours Assessment and Plan Assessment: #1 acute kidney injury secondary to septic ATN and Bactrim. #2 chronic kidney disease stage III with a baseline creatinine of 1.6 MG per DL suspect nephrosclerosis #3 hyperkalemia secondary to acute kidney injury and Bactrim and lisinopril. #4 diabetes #5 lower extremity edema and cellulitis Plan: #1 creatinine improving. #2 stopped lisinopril yesterday. Added Procardia for blood pressure control #3 continue with Lasix, change to 40 mg iv bid. #4 avoid nephrotoxic agents and hypotensive episodes. #5 check labs in the morning
[2019-05-31 12:03] LABS: Glucose,Whole Blood 125 mg/dL (75-99)
[2019-05-31] MEDS: FUROSEMIDE 10 MG/ML 4 ML VIAL IV SCH ×2 (12:54→20:26)
--- NOTE | 2019-05-31 13:22 | PN ---
PROGRESS NOTE DATE OF SERVICE: 05/30/2019. REASON FOR FOLLOWUP: Left lower extremity cellulitis. INTERVAL HISTORY: The patient is currently afebrile. Patient is breathing comfortably. Patient denies having any chest pain or any cough. No nausea, vomiting and no worsening pain to the left leg area which remained to be swollen and red. PHYSICAL EXAMINATION: Blood pressure 162/88 with a pulse of 84, temperature 98. She is 97% on room air. General description is a middle aged female lying in bed in no distress. Respiratory system: Unlabored breathing. Clear to auscultation anteriorly. Heart S1, S2. Regular rate and rhythm. ABDOMEN: Soft, no tenderness. Left leg remains to be swollen. warm and in the redness. DIAGNOSTIC IMPRESSION AND PLAN: Patient with extensive left lower extremity cellulitis. The patient to continue with the IV cefazolin for another 24 hours. If persistent redness may add clindamycin in a.m. Monitor clinically closely. Continue with Sid wrap to keep the swelling down. Continue supportive care. MMODL / IJN: [id number] /
[2019-05-31] MEDS: CLINDAMYCIN 900 MG in DEXTROSE 5% IN WATER 50 ML IVPB SCH ×2 (15:26)
[2019-05-31 17:20] LABS: Glucose,Whole Blood 187 mg/dL (75-99)
--- NOTE | 2019-05-31 19:31 | PN ---
PROGRESS NOTE CHIEF COMPLAINT: Cellulitis of the lower extremities. HISTORY OF PRESENT ILLNESS: This lady is slowly improving. Right leg is greatly improved, but the left is still very edematous and erythematous. She is now having the leg wrapped. PHYSICAL EXAM: She is afebrile. Vital signs are normal. Chest is clear. Cardiac exam is normal. The left leg is wrapped in Sid wraps. The right leg is much improved. IMPRESSION: Cellulitis of the lower extremities with the left being worse than the right. PLAN: Continue local wound care, elevation and IV antibiotics. MMODL / IJN: [id number] /
[2019-05-31 22:43] VITALS: RESP 18
[2019-06-01] MEDS: CLINDAMYCIN 900 MG in DEXTROSE 5% IN WATER 50 ML IVPB SCH ×4 (00:24→10:08)
[2019-06-01] MEDS: Acetaminophen-Codeine 300-30mg TAB PO PRN (00:27)
[2019-06-01] MEDS: oxyCODONE-APAP 5-325MG 1 EACH TAB PO PRN (04:46)
[2019-06-01 05:19] VITALS: BP 169/78; TEMP 97.6
[2019-06-01 07:14] LABS: Glucose,Whole Blood 131 mg/dL (75-99)
--- NOTE | 2019-06-01 08:21 | P.PN ---
Subjective Patient is seen in follow-up for acute kidney injury on chronic kidney disease. Renal function improved since admission. Edema better. Currently being treated for cellulitis. No vomiting or diarrhea. Oral intake is good. Vital signs are stable. General: The patient appeared well nourished and normally developed. HEENT: Head exam is unremarkable. Neck is without jugular venous distension. LUNGS: Lungs are clear to auscultation and percussion. Breath sounds decreased. HEART: Rate and Rhythm are regular. First and second heart sounds normal. No murmurs, rubs or gallops. ABDOMEN: Abdominal exam reveals normal bowel sounds. Non-tender and non- distended. No evidence of peritonitis. EXTREMITITES: 1+ edema. Left lower extremity erythema noted. No obvious drainage. Objective - Vital Signs Vital signs: Vital Signs Temp 97.6 F 06/01/19 05:12 Pulse 85 06/01/19 05:12 Resp 18 06/01/19 05:12 BP 169/78 06/01/19 05:12 Pulse Ox 98 06/01/19 05:12 Intake & Output 05/31/19 06/01/19 06/01/19 18:59 06:59 18:59 Other: # Voids 1 2 - Labs CBC & Chem 7: 05/28/19 10:21 05/31/19 11:14 Labs: Abnormal Lab Results - Last 24 Hours (Table) 05/31/19 05/31/19 05/31/19 Range/Units 11:14 11:56 17:05 Chloride 110 H (98-107) mmol/L BUN 34 H (7-17) mg/dL Creatinine 1.78 H (0.52-1.04) mg/dL Glucose 160 H (74-99) mg/dL POC Glucose (mg/dL) 125 H 187 H (75-99) mg/dL 06/01/19 Range/Units 07:05 Chloride (98-107) mmol/L BUN (7-17) mg/dL Creatinine (0.52-1.04) mg/dL Glucose (74-99) mg/dL POC Glucose (mg/dL) 131 H (75-99) mg/dL Microbiology - Last 24 Hours (Table) 05/28/19 10:21 Blood Culture - Preliminary Blood No Growth after 72 hours Assessment and Plan Plan: Assessment: 1. Acute kidney injury mostly prerenal secondary to infection as well as from the use of Bactrim which will impair creatinine secretion. Creatinine was 2.42 admission and was down to 1.78 as of yesterday. UA is benign. 2. Chronic kidney disease stage III with baseline creatinine near 1.6. Etiology is nephrosclerosis. 3. Hyperkalemia secondary to acute kidney injury and further worsened with the use of lisinopril and Bactrim. Resolved. 4. Diabetes mellitus. 5. Hypertension with chronic kidney disease. 6. Left lower extremity cellulitis maintained on antibiotics. Plan: I will change Lasix to 40 mg orally twice daily. Increase hydralazine to 50 mg 3 times a day. Avoid nephrotoxins. Continue to monitor renal function and urine output.
[2019-06-01] MEDS ORDERED: FUROSEMIDE 40 MG TAB PO SCH (09:00)
[2019-06-01] MEDS ORDERED: hydrALAZINE HCL 50 MG TAB PO SCH (09:00)
[2019-06-01] MEDS: METOPROLOL TARTRATE 50 MG TAB PO SCH (09:03)
[2019-06-01] MEDS: glipiZIDE 5 MG TAB PO SCH (09:04)
[2019-06-01] MEDS: DOCUSATE 100 MG CAP PO SCH (09:04)
[2019-06-01 09:16] VITALS: PULSE 88
[2019-06-01 11:06] LABS: Calcium 8.6 mg/dL (8.4-10.2); Potassium 4.7 mmol/L (3.5-5.1)
--- NOTE | 2019-06-01 14:42 | PN ---
PROGRESS NOTE DATE OF SERVICE: 06/01/2019 REASON FOR FOLLOWUP: Left lower extremity cellulitis. INTERVAL HISTORY: The patient is currently afebrile. Patient is breathing comfortably. Denies having any chest pain or cough. No nausea, vomiting. No abdominal pain. No diarrhea and overall pain and swelling significantly improved. PHYSICAL EXAMINATION: Blood pressure 169/78 with a pulse of 85, temperature is 97.6, she is 98% on room air. General description is a middle-aged female up in the bed, in no distress. RESPIRATORY SYSTEM: Unlabored breathing, clear to auscultation anteriorly. HEART: S1, S2. Regular rate and rhythm. ABDOMEN: Soft, no tenderness. Left leg swelling and redness has decreased. LABS: BUN of 39, creatinine 1.95. DIAGNOSTIC IMPRESSION AND PLAN: Patient with acute left lower extremity cellulitis, seemed to be responding to the IV clindamycin that was added yesterday. The patient is ready to go home and is already dressed up. We will switch over antibiotic therapy to oral clindamycin 10 mg 3 times a day for 10 days with instruction to follow up in the office in 1 week. Continue supportive care. MMODL / IJN: [id number] /
--- NOTE | 2019-06-01 22:33 | DS ---
DISCHARGE SUMMARY CHIEF COMPLAINT: Cellulitis of the lower extremities. HISTORY OF PRESENT ILLNESS AND PHYSICAL EXAM: Details of this lady's history and physical can be found in the initial workup. LABORATORY STUDIES: While she was in the hospital, she had laboratory studies, details of which can be found in the laboratory section of her chart. COURSE IN HOSPITAL: After admission, she was placed on bedrest, started on intravenous fluids and IV antibiotics. She was seen and followed by Infectious Disease. The right leg improved slowly, but the left leg behind. It was starting to improve and Infectious Disease felt that she could go home on the . She will go home on light activity with elevation of the leg and oral antibiotics with Keflex 500 q.i.d. We will follow her up in several days in the office. FINAL DIAGNOSES: 1. Cellulitis of both lower extremities. 2. Venous stasis disease of both lower extremities. OPERATIONS: None. CONSULTATION: Infectious Disease. She is improved. MMODL / IJN: [id number] /
== END 2019-06-01 14:24 | disposition home or self-care (01) | DRG 299 ==
LOC: SUPCPDRO 09:38 → EC 09:38 → 4MS4W 12:10 → OBSVTOIN 05-30 15:31
PROVIDERS: ADMIT Family Medicine; ATTEND Family Medicine
DX: E11.51 Type 2 diabetes mellitus with diabetic peripheral angiopathy without gangrene (principal); N17.0 Acute kidney failure with tubular necrosis; L03.115 Cellulitis of right lower limb; L97.929 Non-pressure chronic ulcer of unspecified part of left lower leg with unspecified severity; L03.116 Cellulitis of left lower limb; E11.22 Type 2 diabetes mellitus with diabetic chronic kidney disease; E11.622 Type 2 diabetes mellitus with other skin ulcer; E87.5 Hyperkalemia; I12.9 Hypertensive chronic kidney disease with stage 1 through stage 4 chronic kidney disease, or unspecified chronic kidney disease; N18.3 Chronic kidney disease, stage 3 (moderate); Z79.84 Long term (current) use of oral hypoglycemic drugs; Z79.899 Other long term (current) drug therapy; Z80.1 Family history of malignant neoplasm of trachea, bronchus and lung; Z80.8 Family history of malignant neoplasm of other organs or systems; Z87.891 Personal history of nicotine dependence; Z88.0 Allergy status to penicillin
CPT/HCPCS: 36415; 80048; 80053; 81003; 82565; 83605; 84132; 85025; 85610; 85730; 87040; 87086; 93005; 96365; 96366; 96367; 99285

== ENCOUNTER 2020-12-15 12:02 | Inpatient (IN) | payer BC ==
[2020-12-15] MEDS ORDERED: MORPHINE SULFATE 4 MG/ML SYRINGE IVP STA (13:34)
[2020-12-15] MEDS ORDERED: SODIUM CHLORIDE 0.9% 1,000 ML IV STA (13:34)
[2020-12-15 14:06] LABS: Anisocytosis Slight; Basophils % (A) 0 %; Eosinophils # (A) 0.2 k/uL (0-0.7); Eosinophils % (A) 2 %; HCT 34.7 % (34.0-46.0); HGB 10.6 gm/dL (11.4-16.0); Hypochromasia Marked; Lymphocytes # (A) 0.8 k/uL (1.0-4.8); Lymphocytes % (A) 7 %; MCH 26.2 pg (25.0-35.0); MCHC 30.5 g/dL (31.0-37.0); Monocytes # (A) 0.5 k/uL (0-1.0); Monocytes % (A) 4 %; Neutrophils # (A) 9.7 k/uL (1.3-7.7); Neutrophils % (A) 86 %; Platelet Count 336 k/uL (150-450); RBC 4.03 m/uL (3.80-5.40); RDW 16.7 % (11.5-15.5); WBC 11.3 k/uL (3.8-10.6)
--- NOTE | 2020-12-15 14:16 | XR ---
Left leg HISTORY: Trauma, fall, infection, pain and erythema, edema Frontal and lateral views of the left leg are submitted on 4 images, correlation prior exam 05/28/2019 Lucency in the soft tissues is consistent with underlying edema, correlate for cellulitis. There is n o periostitis to suggest osteomyelitis. Osteoarthritic changes noted within the knee and left ankle. No fracture or dislocation. Vascular calcification is noted incidentally. IMPRESSION: Soft tissue swelling as described.
[2020-12-15 14:26] LABS: Albumin 3.3 g/dL (3.5-5.0); Calcium 8.4 mg/dL (8.4-10.2); Potassium 4.8 mmol/L (3.5-5.1); Total Bilirubin 0.4 mg/dL (0.2-1.3); Total Protein 6.9 g/dL (6.3-8.2)
--- NOTE | 2020-12-15 14:39 | US ---
EXAMINATION TYPE: US venous doppler duplex LE LT DATE OF EXAM: 12/15/2020 1:35 PM COMPARISON: Lower extremity Doppler duplex 05/28/2019 CLINICAL HISTORY: swelling, trauma. Left leg swelling and redness SIDE PERFORMED: Left TECHNIQUE: The lower extremity deep venous system is examined utilizing real time linear array sonog malinda with graded compression, doppler sonography and color-flow sonography. VESSELS IMAGED: Common Femoral Vein Deep Femoral Vein Greater Saphenous Vein * Femoral Vein Popliteal Vein Small Saphenous Vein * Proximal Calf Veins (* superficial vessels) There is normal flow, compressibility, vascular waveforms. Channels are noted within the soft tissues . Left Leg: Negative for DVT In the left groin, there is a possible lymph node visualized measuring 3.4 x 1.9 x 3.2 cm , possibly previously present IMPRESSION: No evident deep venous thrombosis at or above the left knee. Correlate for edema, mejia lulitis, possible reactive adenopathy left groin, follow-up.
[2020-12-15] MEDS ORDERED: VANCOMYCIN IV PER PHARMACY 1 EACH MISC MISCELLANE PRN (15:20)
[2020-12-15] MEDS ORDERED: IBUPROFEN 400 MG TAB PO PRN (15:22)
[2020-12-15] MEDS ORDERED: NALOXONE 0.4 MG/ML 1 ML VIAL IV PRN ×2 (15:22→16:56)
--- NOTE | 2020-12-15 15:22 | ED ---
Extremity Problem HPI - General Chief complaint: Extremity Problem,Nontraumatic Stated complaint: lt knee/calf pain Time Seen by Provider: 12/15/20 12:10 Source: patient Mode of arrival: ambulatory Limitations: no limitations - History of Present Illness Initial comments: 55-year-old female past medical history of diabetes, recurrent bilateral lower externally cellulitis with venous leg ulcers who presents emergency Department with reported pain and swelling to the left lower extremity. Patient reports that she sustained a fall on December 01. She slipped and landed on her left knee. Reports that she sustained an abrasion on her left santos. Reports that over the past couple of weeks it has been progressively getting more red and swollen. Patient states that this time she cannot bend her knee due to the swelling. Reports 2 history of cellulitis for which she has had to be hospitalized previously. Reports the left lower extremity is weeping with some mild pustular drainage. Denies history of DVT or PE. No chest pain or shortness of breath. Denies any fevers or chills. No other alleviating, precipitating or modifying factors - Related Data Home Medications Medication Instructions Recorded Confirmed glipiZIDE [Glucotrol] 5 mg PO HS 05/28/19 12/15/20 Acetaminophen Tab [Tylenol] 975 mg PO Q4H PRN 12/15/20 12/15/20 Simvastatin [Zocor] 10 mg PO HS 12/15/20 12/15/20 amLODIPine [Norvasc] 10 mg PO HS 12/15/20 12/15/20 Previous Rx's Medication Instructions Recorded Cephalexin [Keflex] 500 mg PO TID #9 cap 12/19/20 hydrALAZINE HCL [Apresoline] 25 mg PO BID #60 tab 12/19/20 lisinopriL 40 mg PO HS #0 12/19/20 Allergies Allergy/AdvReac Type Severity Reaction Status Date / Time Penicillins Allergy Unknown Unknown Verified 12/15/20 14:11 Childhood Review of Systems ROS Statement: Those systems with pertinent positive or pertinent negative responses have been documented in the HPI. ROS Other: All systems not noted in ROS Statement are negative. 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 History of Any Multi-Drug Resistant Organisms: None Reported Past Surgical History: Tonsillectomy Additional Past Surgical History / Comment(s): Peripheral access/procedure to improve blood flow thru tongue x3 Past Anesthesia/Blood Transfusion Reactions: No Reported Reaction Past Psychological History: No Psychological Hx Reported Smoking Status: Never smoker Past Alcohol Use History: Rare Past Drug Use History: Marijuana - Past Family History Father Family Medical History: Cancer Additional Family Medical History / Comment(s): Father had throat cancer. He is . He was a smoker. Mother Family Medical History: Cancer Additional Family Medical History / Comment(s): Mother had breast and lung cancer. She was a smoker. She is . General Exam Limitations: no limitations General appearance: alert, in no apparent distress Head exam: Present: atraumatic, normocephalic, normal inspection Eye exam: Present: normal appearance, PERRL, EOMI. Absent: scleral icterus, conjunctival injection, periorbital swelling ENT exam: Present: normal exam, mucous membranes moist Neck exam: Present: normal inspection. Absent: tenderness, meningismus, lymphadenopathy Respiratory exam: Present: normal lung sounds bilaterally. Absent: respiratory distress, wheezes, rales, rhonchi, stridor Cardiovascular Exam: Present: regular rate, normal rhythm, normal heart sounds. Absent: systolic murmur, diastolic murmur, rubs, gallop, clicks GI/Abdominal exam: Present: soft, normal bowel sounds. Absent: distended, tenderness, guarding, rebound, rigid Extremities exam: Present: tenderness, normal capillary refill, pedal edema (brawney edema b/l le), other (cellulitic changes lle. does not cross ankle or knee joint. Some weeping from the lle. 5/5 muscle strength b/l le). Absent: joint swelling, calf tenderness Back exam: Present: normal inspection Neurological exam: Present: alert, oriented X3, CN II-XII intact Psychiatric exam: Present: normal affect, normal mood Skin exam: Present: warm, dry. Absent: rash Course Vital Signs 12/15/20 12/15/20 12:08 15:48 Temperature 98.4 F 98.2 F Pulse Rate 98 84 Respiratory 18 18 Rate Blood Pressure 177/89 153/87 O2 Sat by Pulse 95 98 Oximetry Medical Decision Making - Medical Decision Making Upon arrival patient was placed into room 4. A thorough history and physical exam was performed. Laboratory studies were conducted and the patient had a x- ray and ultrasound performed. Laboratory studies are reviewed. X-ray demonstrates no signs of osteomyelitis. Ultrasound fails to demonstrate a DVT. Due to the extensive nature of the cellulitis did recommend consultation which patient did agree to. Spoke with Dr. gill who agreed to admit the patient. Patient awaiting a bed on the floor - Lab Data Result diagrams: 12/16/20 05:58 12/16/20 05:58 Lab Results 12/15/20 12/15/20 12/15/20 Range/Units 13:36 13:36 13:36 WBC 11.3 H (3.8-10.6) k/uL RBC 4.03 (3.80-5.40) m/uL Hgb 10.6 L (11.4-16.0) gm/dL Hct 34.7 (34.0-46.0) % MCV 86.0 (80.0-100.0) fL MCH 26.2 (25.0-35.0) pg MCHC 30.5 L (31.0-37.0) g/dL RDW 16.7 H (11.5-15.5) % Plt Count 336 (150-450) k/uL MPV 7.0 Neutrophils % 86 % Lymphocytes % 7 % Monocytes % 4 % Eosinophils % 2 % Basophils % 0 % Neutrophils # 9.7 H (1.3-7.7) k/uL Lymphocytes # 0.8 L (1.0-4.8) k/uL Monocytes # 0.5 (0-1.0) k/uL Eosinophils # 0.2 (0-0.7) k/uL Basophils # 0.0 (0-0.2) k/uL Hypochromasia Marked Anisocytosis Slight ESR 93 H (0-20) mm/hr Sodium 140 (137-145) mmol/L Potassium 4.8 (3.5-5.1) mmol/L Chloride 108 H (98-107) mmol/L Carbon Dioxide 24 (22-30) mmol/L Anion Gap 8 mmol/L BUN 38 H (7-17) mg/dL Creatinine 2.09 H (0.52-1.04) mg/dL Est GFR (CKD-EPI)AfAm 30 (>60 ml/min/1.73 sqM) Est GFR (CKD-EPI)NonAf 26 (>60 ml/min/1.73 sqM) Glucose 297 H (74-99) mg/dL Estimated Ave Glu mg/dL Hemoglobin A1c (4.0-6.0) % Plasma Lactic Acid Alon 1.4 (0.7-2.0) mmol/L Calcium 8.4 (8.4-10.2) mg/dL Total Bilirubin 0.4 (0.2-1.3) mg/dL AST 28 (14-36) U/L ALT 25 (4-34) U/L Alkaline Phosphatase 129 H (38-126) U/L C-Reactive Protein 180.0 H (<10.0) mg/L Total Protein 6.9 (6.3-8.2) g/dL Albumin 3.3 L (3.5-5.0) g/dL 12/15/20 Range/Units 13:36 WBC (3.8-10.6) k/uL RBC (3.80-5.40) m/uL Hgb (11.4-16.0) gm/dL Hct (34.0-46.0) % MCV (80.0-100.0) fL MCH (25.0-35.0) pg MCHC (31.0-37.0) g/dL RDW (11.5-15.5) % Plt Count (150-450) k/uL MPV Neutrophils % % Lymphocytes % % Monocytes % % Eosinophils % % Basophils % % Neutrophils # (1.3-7.7) k/uL Lymphocytes # (1.0-4.8) k/uL Monocytes # (0-1.0) k/uL Eosinophils # (0-0.7) k/uL Basophils # (0-0.2) k/uL Hypochromasia Anisocytosis ESR (0-20) mm/hr Sodium (137-145) mmol/L Potassium (3.5-5.1) mmol/L Chloride (98-107) mmol/L Carbon Dioxide (22-30) mmol/L Anion Gap mmol/L BUN (7-17) mg/dL Creatinine (0.52-1.04) mg/dL Est GFR (CKD-EPI)AfAm (>60 ml/min/1.73 sqM) Est GFR (CKD-EPI)NonAf (>60 ml/min/1.73 sqM) Glucose (74-99) mg/dL Estimated Ave Glu mg/dL 192 Hemoglobin A1c 8.3 H (4.0-6.0) % Plasma Lactic Acid Alon (0.7-2.0) mmol/L Calcium (8.4-10.2) mg/dL Total Bilirubin (0.2-1.3) mg/dL AST (14-36) U/L ALT (4-34) U/L Alkaline Phosphatase (38-126) U/L C-Reactive Protein (<10.0) mg/L Total Protein (6.3-8.2) g/dL Albumin (3.5-5.0) g/dL Disposition Clinical Impression: Diabetes, Left leg cellulitis, Fall Disposition: [facility]MITT[facility] Condition: Good Is patient prescribed a controlled substance at d/c from ED?: No Decision to Admit Reason: Admit from EC Decision Date: 12/15/20 Decision Time: 15:22
[2020-12-15 15:23] LABS: Erythrocyte Sedimentation Rate 93 mm/hr (0-20)
[2020-12-15] MEDS ORDERED: VANCOMYCIN 2,000 MG in SODIUM CHLORIDE 0.9% 500 ML 500 ML IVPB STA (15:23)
--- NOTE | 2020-12-15 17:00 | P.HPIM ---
History of Present Illness H&P Date: 12/15/20 Chief Complaint: leg pain 55 year old woman with history of HTN, HLD, DMII, CKD IIIb/IV, chronic venous stasis presented with leg pain. Pt reports mechanical fall on 12/01 in which she hit her knee and hand. From that point she noted increasing swelling and pain in her left leg and increasing redness and warmth. She tried to take tylenol initially, but the symptoms progressed. She came to the emergency room upon noticing increased weeping from that leg as well. She denies fevers, chills, nausea, vomiting, chest/abd pain, palps, dysnpea, syncope/presyncope, dysuria/ dyschezia, melena/hematochezia, loss of appetite, numbness/weakness of extremities. In the ER, patient is HDS. Labs demonstrate mild leukocytosis and baseline to slightly worse kidney function. ESR and CRP were 93/180 respectively. COVID negative. LE US showed possible left groin LAD, but negative for DVT. Tib/Fib XR demonstrated soft tissue swelling without fracture. 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 History of Any Multi-Drug Resistant Organisms: None Reported Past Surgical History: Tonsillectomy Additional Past Surgical History / Comment(s): Peripheral access/procedure to improve blood flow thru tongue x3 Past Anesthesia/Blood Transfusion Reactions: No Reported Reaction Past Psychological History: No Psychological Hx Reported Smoking Status: Never smoker Past Alcohol Use History: Rare Past Drug Use History: Marijuana - Past Family History Father Family Medical History: Cancer Additional Family Medical History / Comment(s): Father had throat cancer. He is . He was a smoker. Mother Family Medical History: Cancer Additional Family Medical History / Comment(s): Mother had breast and lung cancer. She was a smoker. She is . Medications and Allergies Home Medications Medication Instructions Recorded Confirmed Type glipiZIDE [Glucotrol] 5 mg PO HS 05/28/19 12/15/20 History Acetaminophen Tab [Tylenol] 975 mg PO Q4H PRN 12/15/20 12/15/20 History Metoprolol Tartrate [Lopressor] 100 mg PO HS 12/15/20 12/15/20 History Simvastatin [Zocor] 10 mg PO HS 12/15/20 12/15/20 History amLODIPine [Norvasc] 10 mg PO HS 12/15/20 12/15/20 History lisinopriL 20 mg PO HS 12/15/20 12/15/20 History Allergies Allergy/AdvReac Type Severity Reaction Status Date / Time Penicillins Allergy Unknown Unknown Verified 12/15/20 14:11 Childhood Physical Exam Osteopathic Statement: *. No significant issues noted on an osteopathic structural exam other than those noted in the History and Physical/Consult. Vitals: Vital Signs Temp Pulse Resp BP Pulse Ox 12/15/20 15:48 98.2 F 84 18 153/87 98 12/15/20 12:08 98.4 F 98 18 177/89 95 Intake and Output 12/15/20 12/15/20 12/15/20 06:59 14:59 22:59 Other: Weight 131.542 kg Gen: awake, alert, obese HEENT: normocephalic, atraumatic, good hearing acuity, moist mucous membranes Resp: good air exchange, breathing comfortably with no accessory muscle use, clear to auscultation bilaterally without wheezes CVS: good distal perfusion x 4, regular rate and rhythm without murmurs GI: soft, NTTP, ND : no SPT, no CVAT, whitaker catheter is not present MSK: Bilateral pitting edema with venous stasis changes, no clubbing; left leg is warm to touch with clear areas of demarcation just below the knee, asymmetric swelling with erythema Neuro: non-focal, moving all extremities Psych: cooperative, euthymic mood Results CBC & Chem 7: 12/15/20 13:36 12/15/20 13:36 Labs: Abnormal Lab Results - Last 24 Hours (Table) 12/15/20 12/15/20 Range/Units 13:36 13:36 WBC 11.3 H (3.8-10.6) k/uL Hgb 10.6 L (11.4-16.0) gm/dL MCHC 30.5 L (31.0-37.0) g/dL RDW 16.7 H (11.5-15.5) % Neutrophils # 9.7 H (1.3-7.7) k/uL Lymphocytes # 0.8 L (1.0-4.8) k/uL ESR 93 H (0-20) mm/hr Chloride 108 H (98-107) mmol/L BUN 38 H (7-17) mg/dL Creatinine 2.09 H (0.52-1.04) mg/dL Glucose 297 H (74-99) mg/dL Alkaline Phosphatase 129 H (38-126) U/L C-Reactive Protein 180.0 H (<10.0) mg/L Albumin 3.3 L (3.5-5.0) g/dL Assessment and Plan Assessment: 1. Left Leg Cellulitis 2. Diabetes Type II 3. Hypertension 4. Hyperlipidemia 5. CKD stage IIIb/IV 55 year old woman with DM/HTN/HLD, chronic venous stasis, CKD IIIb/IV presented with increasing leg pain, erythema, swelling in setting of recent fall and injury and was found to have cellulitis warranting admission for antibiotics. Plan: - admit to floor - f/u BCx - given vancomycin/clindamycin in ER --> will give cipro/clinda, renally dose adjusted to cover MRSA/Pseudomonas - ID consult given highly elevated ESR/CRP - hold home DM meds, aspart low dose SSI AC TID - continue home lisinopril, amlodipine, metoprolol - convert home simvastatin to atorvastatin and increase to 40mg qHS - IVF: 1L bolus in the ER - tylenol PRN for pain Full Code Heparin TID DVT PPx Follow up: will need outpatient PCN allergy testing
[2020-12-15] MEDS: CLINDAMYCIN 600 MG in DEXTROSE 5% IN WATER 50 ML IVPB SCH ×4 (17:12→22:33)
[2020-12-15] MEDS ORDERED: CIPROFLOXACIN/DEXTROSE PMX 400 MG in DEXTROSE/WATER 1 200ML.BAG IVPB SCH (18:00)
[2020-12-15] MEDS: INSULIN ASPART (NovoLOG) 100 UNIT/ML VIAL SQ SCH (18:04)
[2020-12-15] MEDS ORDERED: ATORVASTATIN 10 MG TAB PO SCH (21:00)
[2020-12-15 21:04] LABS: Glucose,Whole Blood 269 mg/dL (75-99)
[2020-12-15] MEDS: amLODIPine 10 MG TAB PO SCH (21:19)
[2020-12-15] MEDS: ATORVASTATIN 40 MG TAB PO SCH (21:19)
[2020-12-15] MEDS: METOPROLOL TARTRATE 50 MG TAB PO SCH (21:19)
[2020-12-15] MEDS: lisinopriL 20 MG TAB PO SCH (21:19)
[2020-12-15] MEDS: ACETAMINOPHEN TAB 325 MG TAB PO PRN (22:32)
[2020-12-16] MEDS: HEPARIN SODIUM,PORCINE 5,000 UNIT/ML 1 ML VIAL SQ SCH ×3 (01:35→17:23)
[2020-12-16 07:23] LABS: Glucose,Whole Blood 220 mg/dL (75-99)
[2020-12-16] MEDS ORDERED: VANCOMYCIN 2,000 MG in SODIUM CHLORIDE 0.9% 500 ML 500 ML IVPB SCH (09:00)
[2020-12-16] MEDS: INSULIN ASPART (NovoLOG) 100 UNIT/ML VIAL SQ SCH ×3 (09:07→17:31)
[2020-12-16] MEDS: CLINDAMYCIN 600 MG in DEXTROSE 5% IN WATER 50 ML IVPB SCH ×4 (09:14→17:23)
[2020-12-16 11:41] LABS: Glucose,Whole Blood 183 mg/dL (75-99)
--- NOTE | 2020-12-16 12:20 | P.PN ---
Subjective Progress Note Date: 12/16/20 Patient reports improvement in her pain, swelling, and redness. Objective - Vital Signs Vital signs: Vital Signs Temp 97.7 F 12/16/20 07:03 Pulse 83 12/16/20 10:24 Resp 20 12/16/20 10:24 BP 154/78 12/16/20 07:03 Pulse Ox 96 12/16/20 07:03 Intake & Output 12/15/20 12/16/20 12/16/20 18:59 06:59 18:59 Intake Total 240 Balance 240 Weight 131.542 kg Intake: Oral 240 Other: Voiding Method Toilet # Voids 3 1 - Exam Gen: awake, alert, obese HEENT: normocephalic, atraumatic, good hearing acuity, moist mucous membranes Resp: good air exchange, breathing comfortably with no accessory muscle use, clear to auscultation bilaterally without wheezes CVS: good distal perfusion x 4, regular rate and rhythm without murmurs GI: soft, NTTP, ND : no SPT, no CVAT, whitaker catheter is not present MSK: Bilateral pitting edema with venous stasis changes, no clubbing; left leg is warm to touch with clear areas of demarcation just below the knee, asymmetric swelling with erythema Neuro: non-focal, moving all extremities Psych: cooperative, euthymic mood - Labs CBC & Chem 7: 12/15/20 13:36 12/15/20 13:36 Labs: Abnormal Lab Results - Last 24 Hours (Table) 12/15/20 12/15/20 12/15/20 Range/Units 13:36 13:36 21:02 WBC 11.3 H (3.8-10.6) k/uL Hgb 10.6 L (11.4-16.0) gm/dL MCHC 30.5 L (31.0-37.0) g/dL RDW 16.7 H (11.5-15.5) % Neutrophils # 9.7 H (1.3-7.7) k/uL Lymphocytes # 0.8 L (1.0-4.8) k/uL ESR 93 H (0-20) mm/hr Chloride 108 H (98-107) mmol/L BUN 38 H (7-17) mg/dL Creatinine 2.09 H (0.52-1.04) mg/dL Glucose 297 H (74-99) mg/dL POC Glucose (mg/dL) 269 H (75-99) mg/dL Alkaline Phosphatase 129 H (38-126) U/L C-Reactive Protein 180.0 H (<10.0) mg/L Albumin 3.3 L (3.5-5.0) g/dL 12/16/20 12/16/20 Range/Units 07:18 11:30 WBC (3.8-10.6) k/uL Hgb (11.4-16.0) gm/dL MCHC (31.0-37.0) g/dL RDW (11.5-15.5) % Neutrophils # (1.3-7.7) k/uL Lymphocytes # (1.0-4.8) k/uL ESR (0-20) mm/hr Chloride (98-107) mmol/L BUN (7-17) mg/dL Creatinine (0.52-1.04) mg/dL Glucose (74-99) mg/dL POC Glucose (mg/dL) 220 H 183 H (75-99) mg/dL Alkaline Phosphatase (38-126) U/L C-Reactive Protein (<10.0) mg/L Albumin (3.5-5.0) g/dL Assessment and Plan Assessment: 1. Left Leg Cellulitis 2. Diabetes Type II 3. Hypertension 4. Hyperlipidemia 5. CKD stage IIIb/IV 55 year old woman with DM/HTN/HLD, chronic venous stasis, CKD IIIb/IV presented with increasing leg pain, erythema, swelling in setting of recent fall and injury and was found to have cellulitis warranting admission for antibiotics. Plan: - admit to floor - f/u BCx - given vancomycin/clindamycin in ER --> will give cipro/clinda, renally dose adjusted to cover MRSA/Pseudomonas - ID consult given highly elevated ESR/CRP - hold home DM meds, aspart low dose SSI AC TID - continue home lisinopril, amlodipine, metoprolol - convert home simvastatin to atorvastatin and increase to 40mg qHS - IVF: 1L bolus in the ER - tylenol PRN for pain Full Code Heparin TID DVT PPx Follow up: will need outpatient PCN allergy testing
[2020-12-16 13:49] LABS: Basophils # (A) 0.04 X 10*3/uL (0.00-0.10); Basophils % (A) 0.5 %; Eosinophils # (A) 0.23 X 10*3/uL (0.04-0.35); Eosinophils % (A) 2.8 %; HCT 35.9 % (37.2-46.3); HGB 9.9 g/dL (12.0-15.0); Lymphocytes # (A) 0.75 X 10*3/uL (0.90-5.00); MCH 25.6 pg (27.0-32.0); MCHC 27.6 g/dL (32.0-37.0); Mean Platelet Volume 9.1 fL (9.5-12.2); Monocytes # (A) 0.48 X 10*3/uL (0.20-1.00); Monocytes % (A) 5.7 %; Neutrophils # (A) 6.81 X 10*3/uL (1.80-7.70); Neutrophils % (A) 81.5 %; Platelet Count 287 X 10*3/uL (140-440); RBC 3.86 X 10*6/uL (4.10-5.20); RDW 16.8 % (11.5-14.5); WBC 8.35 X 10*3/uL (4.50-10.00)
[2020-12-16 14:27] LABS: Anion Gap 4.6 mmol/L (4.00-12.00); BUN/Creat Ratio 15.71 Ratio (12.00-20.00); Carbon Dioxide 25.4 mmol/L (21.6-31.8); Magnesium 2.4 mg/dL (1.5-2.4); Non-African American GFR(CKD) 25.8 (60.0-200.0); Potassium 5.5 mmol/L (3.5-5.5)
[2020-12-16 17:14] LABS: Glucose,Whole Blood 240 mg/dL (75-99)
[2020-12-16] MEDS: ACETAMINOPHEN TAB 325 MG TAB PO PRN (17:23)
--- NOTE | 2020-12-16 19:02 | CONS ---
CONSULTATION DATE OF SERVICE: 12/16/2020 REASON FOR CONSULTATION: Left lower extremity cellulitis. HISTORY OF PRESENT ILLNESS: The patient is a 55-year-old female with a past medical history significant for recurrent bilateral lower extremity cellulitis and venostasis ulcer. The patient presented to the ER yesterday afternoon for evaluation of increasing pain, swelling and redness in the left lower extremity. The patient mentioned she apparently did have a fall with injury to the left knee on December 01. The patient mentioned she did have an abrasion on the left santos and subsequently she noticed swelling to the left lower extremity with more swelling, redness and pain, She described the pain to be throbbing, intensity about 8/10 and no radiation. The patient does not have any open wound or any drainage. With these symptoms, the patient was evaluated by the ER physician on arrival in the ER, and the patient was afebrile. No fever has been recorded afterwards. The patient did have a white count of 11.3; repeat is 8.35. The patient had a creatinine of 2.09. Repeat is 2.1. CRP was 180. The patient did have x-rays of the left tibia and fibula that were reported to be negative for any fracture. The patient also had a lower extremity Doppler that was negative for DVT but did show left groin lymph node enlargement. The patient was started on clindamycin and vancomycin. Subsequently Cipro was added, and Infectious Disease was consulted for further management of antibiotic therapy. REVIEW OF SYSTEMS: Positive points have been mentioned in the HPI. Rest of the systems are negative. PAST MEDICAL HISTORY: Significant for recurrent lower extremity cellulitis, diabetes mellitus, hypertension, renal insufficiency, neuropathy in bilateral feet. PAST SURGICAL HISTORY: Tonsillectomy. SOCIAL HISTORY: No history of smoking. Occasionally drinks. Does admit to marijuana use. FAMILY HISTORY: Father with history of cancer. Mother with history of breast and lung cancer. ALLERGIES: PENICILLIN; unknown reaction. No prior history of anaphylaxis. MEDICATIONS: The patient is currently on Tylenol, Norvasc, Lipitor, Cipro, clindamycin, heparin. Vancomycin will be discontinued. NovoLog, Levemir, Zestril, Lopressor, Narcan. PHYSICAL EXAMINATION: Blood pressure 172/78 with a pulse of 95, temperature 97.9. General description is a middle-aged female lying in bed in no distress. No tachypnea or respiration use. HEENT: Examination shows slight pallor. No scleral icterus. Oral mucous membrane is dry. NECK: Trachea is central. No thyromegaly. LUNGS: Unlabored breathing. Clear to auscultation anteriorly. No wheeze or crackle. HEART: S1, S2. Regular rate and rhythm. ABDOMEN: Soft. No tenderness. EXTREMITIES: Left leg did have swelling and redness, slightly warm to touch. No open wound or any drainage. Neurologically the patient is awake, alert, oriented x3. Mood and affect normal. LABS: Hemoglobin 9.9, white count 8.8. Admission white count was 11.3. Creatinine is 2.01. Lower extremity Doppler negative for DVT. It did show evidence of lymphadenopathy, left groin. X-rays were negative for any fracture. DIAGNOSTIC IMPRESSION AND PLAN: 1. Patient admitted to hospital with acute left lower extremity swelling, pain and redness that had been going on for almost 2 weeks now with complaint of diffuse swelling, likely cellulitis and likely from a Gram-positive skin maddison, less likely a Gram-negative infection. 2. PENICILLIN ALLERGY. That will limit the number of antibiotics safe to use. PLAN: 1. Discontinue the clindamycin and Cipro. 2. therapy with cefazolin 3 grams q.8 hours. 3. Sid wrap to the left leg from to below knee. 4. Will follow clinical condition and culture to further adjust medication if needed. Thank you for this consultation. Will follow this patient along with you. MMODL / IJN: [id number] /
[2020-12-16 20:46] LABS: Glucose,Whole Blood 301 mg/dL (75-99)
[2020-12-16] MEDS ORDERED: INSULIN DETEMIR (LEVEMIR) 100 UNIT/ML SYR SQ SCH (21:00)
[2020-12-16] MEDS: amLODIPine 10 MG TAB PO SCH (21:02)
[2020-12-16] MEDS: lisinopriL 20 MG TAB PO SCH (21:02)
[2020-12-16] MEDS: ATORVASTATIN 40 MG TAB PO SCH (21:02)
[2020-12-16] MEDS: METOPROLOL TARTRATE 50 MG TAB PO SCH (21:03)
[2020-12-17] MEDS: HEPARIN SODIUM,PORCINE 5,000 UNIT/ML 1 ML VIAL SQ SCH ×4 (00:12→23:27)
[2020-12-17 07:07] LABS: Glucose,Whole Blood 227 mg/dL (75-99)
[2020-12-17] MEDS: INSULIN ASPART (NovoLOG) 100 UNIT/ML VIAL SQ SCH ×3 (08:42→17:27)
[2020-12-17] MEDS: ACETAMINOPHEN TAB 325 MG TAB PO PRN ×2 (10:18→16:19)
--- NOTE | 2020-12-17 12:19 | P.CRDCN ---
History of Present Illness Consult date: 12/17/20 Reason for Consult (text): Sinus pauses History of present illness: History of present illness: This is a 55-year-old with past medical history of hypertension, hyperlipidemia, diabetes mellitus type 2, chronic kidney disease, venous stasis, chronic leg pain. Patient presented to the hospital with left lower extremity cellulitis and under treatment with IV antibiotics directed by Dr. Alicea. 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 Most are running between 2 and 4 seconds but this morning, patient had extended pause of 7.8 seconds. Patient is asymptomatic. She denies having any chest pain. She states she does have shortness of breath with exertion. She denies lightheadedness or dizziness area and no palpitations. Patient is on Lopressor 100 mg at bedtime and her last dose was provided on December 16. She denies known history of coronary artery disease, no heart catheterization in the past. She is a nonsmoker. Review Of Systems: Constitutional: No fever, no chills. No weakness, fatigue or lethargy. EENT: No headache. No dizziness. Lungs: No shortness of breath, cough, no sputum production. No wheezing. Reports shortness of breath with exertion. Cardiovascular: No chest pain, no lower extremity edema. No palpitations. No paroxysmal nocturnal dyspnea. No orthopnea. No lightheadedness or dizziness. No syncopal episodes. Abdominal: No abdominal pain. No nausea, vomiting. No diarrhea. No constipation. No bloody or tarry stools.. No loss of appetite. Genitourinary: No dysuria.. No urinary retention. Musculoskeletal: No myalgias. No muscle weakness, no gait dysfunction, no fr equent falls. No back pain. No neck pain. Integumentary: Reports cellulitis left lower extremity, no lesions. No rash or pruritus. No unusual bruising. Neurologic: No aphasia. No facial droop. No change in mentation. No head injury. Physical examination: Gen: This is a morbidly obese 55-year-old female. Patient is resting in bed and appears to be comfortable. No respiratory distress is noted at rest. VS: Afebrile, heart rate 78, blood pressure 176/91, pulse ox 92% on room air. HEENT: Head is atraumatic, normocephalic. Pupils equal, round. Sclerae is anicteric. NECK: Supple. No JVD. No lymphadenopathy. No thyromegaly. LUNGS: Clear to auscultation. No wheezes or rhonchi. No intercostal retractions. HEART: Irregular rate and rhythm. No murmur. ABDOMEN: Soft. Bowel sounds are present. No masses. No tenderness. EXTREMITIES: Bilateral 1+ pedal edema right leg, 2+ on the left. Large dressing in place to the left lower extremity. NEUROLOGICAL: Patient is awake, alert and oriented x3. Cranial nerves 2 through 12 are grossly intact. Assessment: Sinus pauses Left lower external cellulitis Hypertension Hyperlipidemia Diabetes mellitus type 2 Chronic kidney disease Plan: Hold metoprolol Transfer patient to the cardiac stepdown unit continue close cardiac monitoring Obtain 2-D echocardiogram and Doppler study to assess cardiac structure and function Further recommendations to follow based upon clinical course Thank you kindly for this consultation. Nurse practitioner note has been reviewed, I agree with documented findings and plan of care. Patient was seen and examined. 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 History of Any Multi-Drug Resistant Organisms: None Reported Past Surgical History: Tonsillectomy Additional Past Surgical History / Comment(s): Peripheral access/procedure to improve blood flow thru tongue x3 Past Anesthesia/Blood Transfusion Reactions: No Reported Reaction Past Psychological History: No Psychological Hx Reported Smoking Status: Never smoker Past Alcohol Use History: Rare Past Drug Use History: Marijuana - Past Family History Father Family Medical History: Cancer Additional Family Medical History / Comment(s): Father had throat cancer. He is . He was a smoker. Mother Family Medical History: Cancer Additional Family Medical History / Comment(s): Mother had breast and lung cancer. She was a smoker. She is . Medications and Allergies Home Medications Medication Instructions Recorded Confirmed Type glipiZIDE [Glucotrol] 5 mg PO HS 05/28/12/15/20 History Acetaminophen Tab [Tylenol] 975 mg PO Q4H PRN 12/15/20 12/15/20 History Metoprolol Tartrate [Lopressor] 100 mg PO HS 12/15/20 12/15/20 History Simvastatin [Zocor] 10 mg PO HS 12/15/20 12/15/20 History amLODIPine [Norvasc] 10 mg PO HS 12/15/20 12/15/20 History lisinopriL 20 mg PO HS 12/15/20 12/15/20 History Allergies Allergy/AdvReac Type Severity Reaction Status Date / Time Penicillins Allergy Unknown Unknown Verified 12/15/20 14:11 Childhood Physical Exam Vitals: Vital Signs Temp Pulse Resp BP Pulse Ox 12/17/20 05:00 98 F 78 22 176/91 92 L 12/16/20 20:41 97.6 F 90 19 156/89 91 L 12/16/20 14:09 97.9 F 95 18 172/78 Intake and Output 12/16/20 12/17/20 12/17/20 22:59 06:59 14:59 Intake Total 360 Balance 360 Intake: Oral 360 Other: Voiding Method Toilet # Voids 3 3 # Bowel Movements 1 Results 12/16/20 05:58 12/16/20 05:58 CBC 12/16/20 Range/Units 05:58 WBC 8.35 (4.50-10.00) X 10*3/uL RBC 3.86 L (4.10-5.20) X 10*6/uL Hgb 9.9 L (12.0-15.0) g/dL Hct 35.9 L (37.2-46.3) % Plt Count 287 (140-440) X 10*3/uL Comprehensive Metabolic Panel 12/16/20 Range/Units 05:58 Sodium 139 (135-145) mmol/L Potassium 5.5 (3.5-5.5) mmol/L Chloride 109 (96-109) mmol/L Carbon Dioxide 25.4 (21.6-31.8) mmol/L BUN 33.0 H (9.0-27.0) mg/dL Creatinine 2.1 H (0.6-1.5) mg/dL Glucose 235 H (70-110) mg/dL Calcium 8.0 L (8.7-10.3) mg/dL Current Medications Generic Name Dose Route Start Last Admin Trade Name Freq PRN Reason Stop Dose Admin Acetaminophen 650 mg 12/15/20 15:22 12/17/20 10:18 Acetaminophen Tab 325 Mg Tab PO 650 mg Q6HR PRN Administration Mild Pain or Fever > 100.5 Amlodipine Besylate 10 mg 12/15/20 21:00 12/16/20 21:02 Amlodipine 10 Mg Tab PO 10 mg HS ANNMARIE Administration Atorvastatin Calcium 40 mg 12/15/20 21:00 12/16/20 21:02 Atorvastatin 40 Mg Tab PO 40 mg HS ANNMARIE Administration Heparin Sodium (Porcine) 5,000 unit 12/16/20 00:00 12/17/20 08:42 Heparin Sodium,Porcine 5,000 Unit/Ml 1 Ml Vial SQ 5,000 unit Q8HR ANNMARIE Administration Cefazolin Sodium 3 gm/ Sodium 50 mls @ 100 mls/hr 12/16/20 16:00 12/17/20 08:42 Chloride IVPB 100 mls/hr Q8HR ANNMARIE Administration Insulin Aspart 0 unit 12/15/20 17:30 12/17/20 08:42 Insulin Aspart (Novolog) 100 Unit/Ml Vial SQ 3 unit AC-TID ANNMARIE Administration Protocol Insulin Detemir 5 unit 12/16/20 21:00 12/16/20 21:03 Insulin Detemir (Levemir) 100 Unit/Ml Syr SQ 5 unit HS ANNMARIE Administration Lisinopril 20 mg 12/15/20 21:00 12/16/20 21:02 Lisinopril 20 Mg Tab PO 20 mg HS ANNMARIE Administration Metoprolol Tartrate 100 mg 12/15/20 21:00 12/16/20 21:03 Metoprolol Tartrate 50 Mg Tab PO 100 mg HS ANNMARIE Administration Naloxone HCl 0.2 mg 12/15/20 16:56 Naloxone 0.4 Mg/Ml 1 Ml Vial IV Q2M PRN Opioid Reversal Intake and Output 12/16/20 12/17/20 12/17/20 22:59 06:59 14:59 Intake Total 360 Balance 360 Intake: Oral 360 Other: Voiding Method Toilet # Voids 3 3 # Bowel Movements 1 12/16/20 05:58 12/16/20 05:58
[2020-12-17] MEDS ORDERED: ATROPINE SULFATE 0.1 MG/ML 10ML SYRINGE IV PRN (12:32)
[2020-12-17 12:42] LABS: Glucose,Whole Blood 417 mg/dL (75-99)
--- NOTE | 2020-12-17 13:16 | P.PN ---
Subjective Progress Note Date: 12/17/20 Pt has been having sinus pauses varying from 3s to 7.8s in duration. Pt is on extended metoprolol. Cardiology consulted, patient moved to 3S. Objective - Vital Signs Vital signs: Vital Signs Temp 97.6 F 12/17/20 12:46 Pulse 76 12/17/20 12:46 Resp 20 12/17/20 13:00 BP 169/68 12/17/20 12:46 Pulse Ox 93 L 12/17/20 12:46 Intake & Output 12/16/20 12/17/20 12/17/20 18:59 06:59 18:59 Intake Total 360 Balance 360 Intake: Oral 360 Other: Voiding Method Toilet Toilet # Voids 3 3 3 # Bowel Movements 1 1 - Exam Gen: awake, alert, obese HEENT: normocephalic, atraumatic, good hearing acuity, moist mucous membranes Resp: good air exchange, breathing comfortably with no accessory muscle use, clear to auscultation bilaterally without wheezes CVS: good distal perfusion x 4, regular rate and rhythm without murmurs GI: soft, NTTP, ND : no SPT, no CVAT, whitaker catheter is not present MSK: Bilateral pitting edema with venous stasis changes, no clubbing; left leg is warm to touch with clear areas of demarcation just below the knee, asymmetric swelling with erythema Neuro: non-focal, moving all extremities Psych: cooperative, euthymic mood - Labs CBC & Chem 7: 12/16/20 05:58 12/16/20 05:58 Labs: Abnormal Lab Results - Last 24 Hours (Table) 12/16/20 12/16/20 12/16/20 Range/Units 05:58 05:58 17:09 RBC 3.86 L (4.10-5.20) X 10*6/uL Hgb 9.9 L (12.0-15.0) g/dL Hct 35.9 L (37.2-46.3) % MCH 25.6 L (27.0-32.0) pg MCHC 27.6 L (32.0-37.0) g/dL RDW 16.8 H (11.5-14.5) % MPV 9.1 L (9.5-12.2) fL Lymphocytes # 0.75 L (0.90-5.00) X 10*3/uL BUN 33.0 H (9.0-27.0) mg/dL Creatinine 2.1 H (0.6-1.5) mg/dL Est GFR (CKD-EPI)AfAm 30.0 L (60.0-200.0) Est GFR (CKD-EPI)NonAf 25.8 L (60.0-200.0) Glucose 235 H (70-110) mg/dL POC Glucose (mg/dL) 240 H (75-99) mg/dL Calcium 8.0 L (8.7-10.3) mg/dL 12/16/20 12/17/20 12/17/20 Range/Units 20:43 07:06 12:41 RBC (4.10-5.20) X 10*6/uL Hgb (12.0-15.0) g/dL Hct (37.2-46.3) % MCH (27.0-32.0) pg MCHC (32.0-37.0) g/dL RDW (11.5-14.5) % MPV (9.5-12.2) fL Lymphocytes # (0.90-5.00) X 10*3/uL BUN (9.0-27.0) mg/dL Creatinine (0.6-1.5) mg/dL Est GFR (CKD-EPI)AfAm (60.0-200.0) Est GFR (CKD-EPI)NonAf (60.0-200.0) Glucose (70-110) mg/dL POC Glucose (mg/dL) 301 H 227 H 417 H (75-99) mg/dL Calcium (8.7-10.3) mg/dL Microbiology - Last 24 Hours (Table) 12/15/20 15:44 Blood Culture - Preliminary Blood No Growth after 24 hours Assessment and Plan Assessment: 1. Left Leg Cellulitis 2. Diabetes Type II 3. Hypertension 4. Hyperlipidemia 5. CKD stage IIIb/IV 6. Sinus Pauses 55 year old woman with DM/HTN/HLD, chronic venous stasis, CKD IIIb/IV presented with increasing leg pain, erythema, swelling in setting of recent fall and injury and was found to have cellulitis warranting admission for antibiotics. Plan: - admit to floor - f/u BCx = NGTD - given vancomycin/clindamycin in ER --> will give cipro/clinda, renally dose ad justed to cover MRSA/Pseudomonas - transitioned to cefazolin 3g q8h on 12/16 - ID consult given highly elevated ESR/CRP, see above - hold home DM meds, aspart low dose SSI AC TID - continue home lisinopril, amlodipine - hold home metoprolol due to sinus pauses - cardiology consult, appreciate recs - convert home simvastatin to atorvastatin and increase to 40mg qHS - IVF: 1L bolus in the ER - tylenol PRN for pain Full Code Heparin TID DVT PPx Follow up: will need outpatient PCN allergy testing
[2020-12-17] MEDS ORDERED: INSULIN DETEMIR (LEVEMIR) 100 UNIT/ML SYR SQ ONE (15:00)
[2020-12-17] MEDS: ceFAZolin 3 GM in SODIUM CHLORIDE 0.9% 100 ML IVPB SCH ×2 (15:09→23:27)
[2020-12-17] MEDS: NITROGLYCERIN OINT 1 INCH/GM PACKET TOPICAL SCH ×2 (15:09→23:27)
[2020-12-17 17:24] LABS: Glucose,Whole Blood 164 mg/dL (75-99)
[2020-12-17 20:01] LABS: Glucose,Whole Blood 229 mg/dL (75-99)
[2020-12-17] MEDS: amLODIPine 10 MG TAB PO SCH (20:31)
[2020-12-17] MEDS: ATORVASTATIN 40 MG TAB PO SCH (20:31)
[2020-12-17] MEDS: lisinopriL 20 MG TAB PO SCH (20:32)
[2020-12-17] MEDS: INSULIN DETEMIR (LEVEMIR) 100 UNIT/ML SYR SQ SCH (20:32)
--- NOTE | 2020-12-17 23:01 | PN ---
PROGRESS NOTE DATE OF SERVICE: 12/17/2020 REASON FOR FOLLOWUP: Left lower extremity cellulitis. INTERVAL HISTORY: The patient is currently afebrile. The patient has been moved out of ICU as the patient did have some arrhythmia. The patient denies having any chest pain. No shortness of breath or cough. No abdominal pain. left lower extremity. PHYSICAL EXAMINATION: Blood pressure 139/86, pulse of 97, temperature 98.8. She is 92% on room air. General description: The patient is a middle-aged female lying in bed in no distress. Respiratory system: Unlabored breathing, clear to auscultation anteriorly. Heart S1, S2. Regular rate and rhythm. Abdomen: Soft, no tenderness. Left leg is currently dressed up. No obvious drainage on the dressing. LABS: Blood culture negative. DIAGNOSTIC IMPRESSION AND PLAN: Patient with acute left lower extremity cellulitis in this patient covered with cefazolin 3 g q8h along with Sid wrap to the leg. Once the cardiac condition has stabilized, we will finished therapy with oral Keflex and close outpatient followup. MMODL / IJN: [id number] /
[2020-12-18] MEDS: ACETAMINOPHEN TAB 325 MG TAB PO PRN ×3 (03:59→20:36)
[2020-12-18 06:02] LABS: Glucose,Whole Blood 178 mg/dL (75-99)
[2020-12-18] MEDS: INSULIN ASPART (NovoLOG) 100 UNIT/ML VIAL SQ SCH ×3 (07:10→17:21)
[2020-12-18] MEDS: NITROGLYCERIN OINT 1 INCH/GM PACKET TOPICAL SCH ×3 (08:14→20:30)
[2020-12-18] MEDS: HEPARIN SODIUM,PORCINE 5,000 UNIT/ML 1 ML VIAL SQ SCH ×3 (08:14→23:44)
[2020-12-18] MEDS: ceFAZolin 3 GM in SODIUM CHLORIDE 0.9% 100 ML IVPB SCH (08:18)
--- NOTE | 2020-12-18 12:06 | ECHOF ---
Referral Reason:lvf MEASUREMENTS -------- HEIGHT: 170.2 cm WEIGHT: 131.5 kg BP: 169/68 RVIDd: 3.4 cm (< 3.3) IVSd: 1.4 cm (0.6 - 1.1) LVIDd: 4.0 cm (3.9 - 5.3) LVPWd: 1.6 cm (0.6 - 1.1) IVSs: 1.9 cm LVIDs: 2.5 cm LVPWs: 1.9 cm LA Diam: 3.4 cm (2.7 - 3.8) Ao Diam: 3.2 cm (2.0 - 3.7) AV Cusp: 1.9 cm (1.5 - 2.6) MV EXCURSION: 16.312 mm (> 18.000) MV EF SLOPE: 93 mm/s (70 - 150) EPSS: 0.4 cm MV E Canelo: 1.18 m/s MV DecT: 189 ms MV A Canelo: 1.04 m/s MV E/A Ratio: 1.13 AV maxP.86 mmHg AV meanP.91 mmHg RAP: 15.00 mmHg RVSP: 43.03 mmHg FINDINGS -------- Sinus rhythm. This was a technically adequate study. The left ventricular size is normal. There is moderate concentric left ventricular hypertrophy. O verall left ventricular systolic function is normal with, an EF between 60 - 65 %. The right ventricle is mildly enlarged. The left atrium is normal in size. The right atrium is normal in size. Interatrial and interventricular septum intact. There is mild aortic valve sclerosis. There is mild aortic stenosis present. Peak/mean gradient a cross the Aortic Valve is 15.86mmHg / 9.91mmHg. Can't exclude possible Bicuspid Aov. Mild mitral annular calcification present. Mild tricuspid regurgitation present. There is mild pulmonary hypertension. The right ventricular systolic pressure, as measured by Doppler, is 43.03mmHg. Trace/mild (physiologic) pulmonic regurgitation. The aortic root size is normal. The inferior vena cava is dilated with poor inspiratory collapse which is consistent with estimated r ight atrial pressure of 15 mmHg. There is no pericardial effusion. CONCLUSIONS -------- 1. The left ventricular size is normal. 2. There is moderate concentric left ventricular hypertrophy. 3. Overall left ventricular systolic function is normal with, an EF between 60 - 65 %. 4. The right ventricle is mildly enlarged. 5. There is mild aortic valve sclerosis. 6. There is mild aortic stenosis present. 7. Peak/mean gradient across the Aortic Valve is 15.86mmHg / 9.91mmHg. 8. Can't exclude possible Bicuspid Aov. 9. Mild mitral annular calcification present. 10. Mild tricuspid regurgitation present. 11. There is mild pulmonary hypertension. 12. The right ventricular systolic pressure, as measured by Doppler, is 43.03mmHg. 13. Trace/mild (physiologic) pulmonic regurgitation. 14. The inferior vena cava is dilated with poor inspiratory collapse which is consistent with estimat ed right atrial pressure of 15 mmHg. 15. There is no pericardial effusion. SPICE MIXER: Keara Degroot RDCS
[2020-12-18 12:11] LABS: Glucose,Whole Blood 174 mg/dL (75-99)
--- NOTE | 2020-12-18 13:07 | P.PN ---
Subjective Progress Note Date: 12/18/20 Pt still having sinus pauses versus second degree heart block on telemetry Objective - Vital Signs Vital signs: Vital Signs Temp 98.7 F 12/18/20 11:13 Pulse 90 12/18/20 11:13 Resp 18 12/18/20 11:13 BP 165/93 12/18/20 11:13 Pulse Ox 99 12/18/20 11:13 Intake & Output 12/17/20 12/18/20 12/18/20 18:59 06:59 18:59 Intake Total 480 720 Balance 480 720 Weight 136.8 kg Intake: Oral 480 720 Other: Voiding Method Toilet Toilet Toilet # Voids 1 2 # Bowel Movements 1 - Exam Gen: awake, alert, obese HEENT: normocephalic, atraumatic, good hearing acuity, moist mucous membranes Resp: good air exchange, breathing comfortably with no accessory muscle use, clear to auscultation bilaterally without wheezes CVS: good distal perfusion x 4, regular rate and rhythm without murmurs GI: soft, NTTP, ND : no SPT, no CVAT, whitaker catheter is not present MSK: Bilateral pitting edema with venous stasis changes, no clubbing; left leg is warm to touch with clear areas of demarcation just below the knee, asymmetric swelling with erythema Neuro: non-focal, moving all extremities Psych: cooperative, euthymic mood - Labs CBC & Chem 7: 12/16/20 05:58 12/16/20 05:58 Labs: Abnormal Lab Results - Last 24 Hours (Table) 12/17/20 12/17/20 12/18/20 Range/Units 17:14 19:59 06:01 POC Glucose (mg/dL) 164 H 229 H 178 H (75-99) mg/dL 12/18/20 Range/Units 12:10 POC Glucose (mg/dL) 174 H (75-99) mg/dL Microbiology - Last 24 Hours (Table) 12/15/20 15:44 Blood Culture - Preliminary Blood No Growth after 48 hours Assessment and Plan Assessment: 1. Left Leg Cellulitis 2. Diabetes Type II 3. Hypertension 4. Hyperlipidemia 5. CKD stage IIIb/IV 6. Sinus Pauses 55 year old woman with DM/HTN/HLD, chronic venous stasis, CKD IIIb/IV presented with increasing leg pain, erythema, swelling in setting of recent fall and injury and was found to have cellulitis warranting admission for antibiotics. Plan: - admit to floor - f/u BCx = NGTD - given vancomycin/clindamycin in ER --> will give cipro/clinda, renally dose adjusted to cover MRSA/Pseudomonas - transitioned to cefazolin 3g q8h on 12/16 - transitioned to cephalexin 500mg TID on 12/18 - ID consult given highly elevated ESR/CRP, see above - hold home DM meds, aspart low dose SSI AC TID + levemir 10U qHS - continue home lisinopril, amlodipine - hold home metoprolol due to sinus pauses - likely home on ZIO patch - cardiology consult, appreciate recs - convert home simvastatin to atorvastatin and increase to 40mg qHS - IVF: 1L bolus in the ER - tylenol PRN for pain Full Code Heparin TID DVT PPx Follow up: will need outpatient PCN allergy testing
--- NOTE | 2020-12-18 14:13 | P.PN ---
Subjective Progress Note Date: 12/18/20 Is a pleasant 55-year-old female patient with a past medical history of hypertension, hyperlipidemia, diabetes mellitus type 2, chronic kidney disease, venous stasis, chronic leg pain and past diagnosis of obstructive sleep apnea for which she has not been treated with CPAP due to some insurance issues. Delfin mobley currently has a different insurance that she did 4 years ago at the time of evaluation. She presented with lower extremity cellulitis and is under treatment with IV antibiotics and followed by infectious disease. We were asked to the patient due to her having significant sinus pauses on pvc monitor. Longest pause 7.8 seconds. She continues to have pauses while on beta makayla. Longest pause through the night last night was 6 seconds. She is having these pauses only when sleeping. The pressure has been elevated. Labs show BUN at 33 and creatinine 2.1. She is currently on amlodipine 10 mg by mouth daily and lisinopril 20 mg by mouth daily. Objective - Vital Signs Vital signs: Vital Signs Temp 98.7 F 12/18/20 11:13 Pulse 90 12/18/20 11:13 Resp 18 12/18/20 11:13 BP 165/93 12/18/20 11:13 Pulse Ox 99 12/18/20 11:13 Intake & Output 12/17/20 12/18/20 12/18/20 18:59 06:59 18:59 Intake Total 480 720 Balance 480 720 Weight 136.8 kg Intake: Oral 480 720 Other: Voiding Method Toilet Toilet Toilet # Voids 1 2 # Bowel Movements 1 - Exam PHYSICAL EXAMINATION: HEENT: Head is atraumatic, normocephalic. Pupils equal, round. Neck is supple. There is no elevated jugular venous pressure. HEART EXAMINATION: Heart sounds regular, S1 and S2 normal. No murmur or gallop heard. CHEST EXAMINATION: Lungs are clear to auscultation. No chest wall tenderness is noted on palpation or with deep breathing. ABDOMEN: Soft, obese, nontender. Bowel sounds are heard. No organomegaly noted. EXTREMITIES: 1+ peripheral pulses with evidence of 1+ peripheral edema, evidence of chronic skin changes with saline as noted left lower extremity. NEUROLOGIC patient is awake, alert and oriented x3. . - Labs CBC & Chem 7: 12/16/20 05:58 12/16/20 05:58 Labs: Abnormal Lab Results - Last 24 Hours (Table) 12/17/20 12/17/20 12/18/20 Range/Units 17:14 19:59 06:01 POC Glucose (mg/dL) 164 H 229 H 178 H (75-99) mg/dL 12/18/20 Range/Units 12:10 POC Glucose (mg/dL) 174 H (75-99) mg/dL Microbiology - Last 24 Hours (Table) 12/15/20 15:44 Blood Culture - Preliminary Blood No Growth after 48 hours Assessment and Plan Assessment: 1 left lower extremity cellulitis 2 sinus pauses while sleeping 3 obstructive sleep apnea not currently treated with CPAP 4 hypertension, uncontrolled 5 hyperlipidemia 6 diabetes mellitus type 2 7 chronic kidney disease Plan: From cardiology's perspective significant sinus pauses could be secondary to untreated obstructive sleep apnea. We will consult pulmonary. If despite disco ntinuation of beta blockers and adequate treatment of sleep apnea patient continues to have pauses she will need permanent pacemaker implantation. We will continue to follow the patient right further recommendations accordingly. The above dictated assessment and findings were discussed with signing physician. The impression and plan of care have been directed as dictated. Laura Rhodes, Nurse Practitioner, acting as scribe for signing physician.
[2020-12-18 15:28] LABS: Hemoglobin A1C 8.3 % (4.0-6.0)
[2020-12-18] MEDS: CEPHALEXIN 500 MG CAP PO SCH ×2 (16:01→20:30)
[2020-12-18] MEDS ORDERED: hydrALAZINE HCL 25 MG TAB PO STA (16:05)
[2020-12-18 17:07] LABS: Glucose,Whole Blood 280 mg/dL (75-99)
[2020-12-18] MEDS: amLODIPine 10 MG TAB PO SCH (17:32)
[2020-12-18] MEDS: ATORVASTATIN 40 MG TAB PO SCH (20:29)
[2020-12-18] MEDS: hydrALAZINE HCL 25 MG TAB PO SCH (20:30)
[2020-12-18] MEDS: INSULIN DETEMIR (LEVEMIR) 100 UNIT/ML SYR SQ SCH (20:37)
[2020-12-18] MEDS ORDERED: lisinopriL 20 MG TAB PO SCH (21:00)
[2020-12-18 21:01] LABS: Glucose,Whole Blood 320 mg/dL (75-99)
--- NOTE | 2020-12-18 22:20 | PN ---
PROGRESS NOTE DATE OF SERVICE: 12/18/2020 REASON FOR FOLLOWUP: Left lower extremity cellulitis. INTERVAL HISTORY: The patient is currently afebrile patient is breathing comfortably. The patient denies having any chest pain or shortness of breath or cough. No abdominal pain or pain to the left lower extremity. PHYSICAL EXAMINATION: Blood pressure 139/89 with a pulse of 93, temperature 97.9. She is 97% on room air. General description: The patient is a middle-aged female lying in bed in no distress. Respiratory system: Unlabored breathing, clear to auscultation anteriorly. HEART: S1, S2. Regular rate and rhythm. Abdomen soft, no tenderness. Left leg swelling and redness has decreased. LABS: No new labs have been obtained today. DIAGNOSTIC IMPRESSION AND PLAN: Patient with acute left lower extremity cellulitis in this patient overall clinical response to the cefazolin to continue, while inpatient finish with oral Keflex. Continue with Sid wrap to the leg to keep the swelling down. MMODL / IJN: [id number] /
[2020-12-19 06:23] LABS: Glucose,Whole Blood 181 mg/dL (75-99)
[2020-12-19] MEDS: INSULIN ASPART (NovoLOG) 100 UNIT/ML VIAL SQ SCH ×2 (06:50→12:51)
[2020-12-19] MEDS: hydrALAZINE HCL 25 MG TAB PO SCH (08:58)
[2020-12-19] MEDS: NITROGLYCERIN OINT 1 INCH/GM PACKET TOPICAL SCH (08:58)
[2020-12-19] MEDS: CEPHALEXIN 500 MG CAP PO SCH (08:58)
[2020-12-19] MEDS: HEPARIN SODIUM,PORCINE 5,000 UNIT/ML 1 ML VIAL SQ SCH (09:02)
[2020-12-19] MEDS: ACETAMINOPHEN TAB 325 MG TAB PO PRN (09:05)
[2020-12-19 11:09] VITALS: BP 175/88; PULSE 104; RESP 20; TEMP 98.4
[2020-12-19 12:16] LABS: Glucose,Whole Blood 228 mg/dL (75-99)
--- NOTE | 2020-12-19 13:05 | P.CONS ---
History of Present Illness - Reason for Consult Consult date: 12/19/20 wound care - History of Present Illness this is a 55-year-old female being seen on 3 S. by the wound care center for left lower extremity ulceration. Patient states that the ulceration has been there for multiple years it comes and goes. She does have compression garment at home however she fell resulting in increased edema and opening of the ulceration. She does not utilize any type of advanced wound care products to the site. ulceration is epithelialized at this time no open areas noted. Edema noted. Wound shows dry scaly skin. the past medical history is diabetes, hypertension, renal failure, and venous insufficiency. Review Of Systems: Constitutional: No fever, no chills, no night sweats. No weight change. No weakness, fatigue or lethargy. No daytime sleepiness. Integumentary:reports wounds, no lesions. No rash or pruritus. No unusual bruising. No change in hair or nails. Physical exam: General Appearance: Alert, cooperative, no distress, appears stated age. Skin: See HPI all other Skin color, texture, tugor normal, no rashes or lesions. Neurologic: Alert oriented x3 Assessment 1. Chronic hypertension with ulceration of left lower extremity 2. Diabetes with skin ulcer 3.Venous insufficienc plan: Apply zinc barrier cream to left lower extremity in 2 layers of Tubigrip. Discussed with patient utilizing a CircAid which will need to be ordered when she has an ulceration. Discussed with patient she may return to the wound care center as outpatient if the ulceration opened up. Patient verbalized understanding. Thank you for the consultation any questions please contact the wound care center DNP note has been reviewed and discussed with Dr. Pichardo and the impression and plan of care has been directed as dictated. 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 History of Any Multi-Drug Resistant Organisms: None Reported Past Surgical History: Tonsillectomy Additional Past Surgical History / Comment(s): Peripheral access/procedure to improve blood flow thru tongue x3 Past Anesthesia/Blood Transfusion Reactions: No Reported Reaction Past Psychological History: No Psychological Hx Reported Smoking Status: Never smoker Past Alcohol Use History: Rare Past Drug Use History: Marijuana - Past Family History Father Family Medical History: Cancer Additional Family Medical History / Comment(s): Father had throat cancer. He is . He was a smoker. Mother Family Medical History: Cancer Additional Family Medical History / Comment(s): Mother had breast and lung cancer. She was a smoker. She is . Medications and Allergies Home Medications Medication Instructions Recorded Confirmed Type glipiZIDE [Glucotrol] 5 mg PO HS 05/28/19 12/15/20 History Acetaminophen Tab [Tylenol] 975 mg PO Q4H PRN 12/15/20 12/15/20 History Metoprolol Tartrate [Lopressor] 100 mg PO HS 12/15/20 12/15/20 History Simvastatin [Zocor] 10 mg PO HS 12/15/20 12/15/20 History amLODIPine [Norvasc] 10 mg PO HS 12/15/20 12/15/20 History lisinopriL 20 mg PO HS 12/15/20 12/15/20 History Allergies Allergy/AdvReac Type Severity Reaction Status Date / Time Penicillins Allergy Unknown Unknown Verified 12/15/20 14:11 Childhood Physical Exam Vitals: Vital Signs Temp Pulse Resp BP Pulse Ox 12/19/20 08:00 98.4 F 104 H 20 175/88 98 12/19/20 03:31 87 18 146/90 98 12/19/20 01:55 92 20 12/19/20 00:00 92 20 143/84 93 L 12/18/20 20:00 97.8 F 92 20 179/89 97 12/18/20 17:26 193/92 12/18/20 15:57 98.0 F 91 20 218/100 97 12/18/20 14:00 90 18 Intake and Output 12/18/20 12/19/20 12/19/20 22:59 06:59 14:59 Intake Total 1360 472 Balance 1360 472 Intake: Oral 1360 472 Other: Voiding Method Toilet Toilet Toilet # Voids 1 3 1 Weight 78.6 kg Results CBC & Chem 7: 12/16/20 05:58 12/16/20 05:58 Labs: Abnormal Lab Results - Last 24 Hours (Table) 12/15/20 12/18/20 12/18/20 Range/Units 13:36 17:06 21:00 POC Glucose (mg/dL) 280 H 320 H (75-99) mg/dL Hemoglobin A1c 8.3 H (4.0-6.0) % 12/19/20 12/19/20 Range/Units 06:17 12:15 POC Glucose (mg/dL) 181 H 228 H (75-99) mg/dL Hemoglobin A1c (4.0-6.0) % Microbiology - Last 24 Hours (Table) 12/15/20 15:44 Blood Culture - Preliminary Blood No Growth after 72 hours Assessment and Plan (1) Chronic venous hypertension (idiopathic) with ulcer of left lower extremity Current Visit: Yes Status: Acute Code(s): I87.312 - CHRONIC VENOUS HYPERTENSION W ULCER OF L LOW EXTREM; L97.929 - NON-PRS CHRONIC ULC UNSP PRT OF L LOW LEG W UNSP SEVERITY SNOMED Code(s): 819614750336679 (2) Venous insufficiency (chronic) (peripheral) Current Visit: Yes Status: Acute Code(s): I87.2 - VENOUS INSUFFICIENCY (C HRONIC) (PERIPHERAL) SNOMED Code(s): 05029445 (3) Diabetes with skin ulcer Current Visit: Yes Status: Acute Code(s): E11.622 - TYPE 2 DIABETES MELLITUS WITH OTHER SKIN ULCER; L98.499 - NON-PRESSURE CHRONIC ULCER OF SKIN OF SITES W UNSP SEVERITY SNOMED Code(s): 45135758
--- NOTE | 2020-12-19 13:42 | P.PN ---
Subjective Progress Note Date: 12/19/20 HISTORY OF PRESENT ILLNESS: 55-year-old female who was admitted to the hospital secondary to lower extremity cellulitis. Patient was noted to have pauses on telemetry of almost 8 seconds. Her beta makayla was discontinued on Saturday. Patient continues to have pauses but they have shortened in length. Longest pause noted this morning was 3.8 seconds. Majority of patients pauses appear to be when she is sleeping. Patient does have a known history of obstructive sleep apnea but does not have a CPAP. PHYSICAL EXAM: VITAL SIGNS: Reviewed. GENERAL: Well-developed in no acute distress. NECK: Supple. No JVD or thyromegaly LUNGS: Respirations even and unlabored. Lungs essentially clear to auscultation bilaterally. HEART: Regular rate and rhythm. S1 and S2 heard. EXTREMITIES: Normal range of motion. No clubbing or cyanosis. Peripheral pulses intact. Trace bilateral lower extremity edema ASSESSMENT: Left lower extremity cellulitis Sinus pauses, while sleeping, beta makayla since discontinued Obstructive sleep apnea, not currently treated with CPAP Hypertension Hyperlipidemia Diabetes mellitus Chronic kidney disease PLAN: Continue to hold beta makayla Recommend treatment for obstructive sleep apnea No indication for pacemaker at this time Patient may be discharged home today from a cardiac standpoint. She is to follow up outpatient with Dr. Carmona Nurse practitioner note has been reviewed by physician. Signing provider agrees with the documented findings, assessment, and plan of care. Objective - Vital Signs Vital signs: Vital Signs Temp 98.4 F 12/19/20 08:00 Pulse 104 H 12/19/20 08:00 Resp 20 12/19/20 08:00 BP 175/88 12/19/20 08:00 Pulse Ox 98 12/19/20 08:00 Intake & Output 12/18/20 12/19/20 12/19/20 18:59 06:59 18:59 Intake Total 1200 1360 472 Balance 1200 1360 472 Weight 78.6 kg Intake: Oral 1200 1360 472 Other: Voiding Method Toilet Toilet Toilet # Voids 2 3 1 - Labs CBC & Chem 7: 12/16/20 05:58 12/16/20 05:58 Labs: Abnormal Lab Results - Last 24 Hours (Table) 12/15/20 12/18/20 12/18/20 Range/Units 13:36 17:06 21:00 POC Glucose (mg/dL) 280 H 320 H (75-99) mg/dL Hemoglobin A1c 8.3 H (4.0-6.0) % 12/19/20 12/19/20 Range/Units 06:17 12:15 POC Glucose (mg/dL) 181 H 228 H (75-99) mg/dL Hemoglobin A1c (4.0-6.0) % Microbiology - Last 24 Hours (Table) 12/15/20 15:44 Blood Culture - Preliminary Blood No Growth after 72 hours
--- NOTE | 2020-12-19 13:52 | PN ---
PROGRESS NOTE DATE OF SERVICE: 12/19/2020 REASON FOR FOLLOWUP: Left lower extremity cellulitis. INTERVAL HISTORY: The patient is currently afebrile. The patient is breathing comfortably. Denies having any chest pain or any cough. No abdominal pain or any worsening pain to the left lower extremity. PHYSICAL EXAMINATION: Blood pressure 175/88 with pulse 100, temperature 98.4. She is 98% on room air. General description is a middle-aged female up in the chair in no distress. RESPIRATORY SYSTEM: Unlabored breathing with decreased intensity breath sounds. No wheeze. HEART: S1, S2. Regular rate and rhythm. ABDOMEN: Soft, no tenderness. LABS: No new labs have been obtained today. DIAGNOSTIC IMPRESSION AND PLAN: Patient with left lower extremity cellulitis, overall response to cefazolin. Antibiotic switched to Keflex to continue for about a week. Sid wrap to the leg to keep the swelling down and continue supportive care. MMODL / IJN: [id number] /
--- NOTE | 2020-12-19 15:25 | P.PN ---
Subjective Progress Note Date: 12/19/20 No new complaints. Pulm evaluated patient and recommend loaner CPAP machine prior to discharge, pending. Objective - Vital Signs Vital signs: Vital Signs Temp 98.4 F 12/19/20 08:00 Pulse 104 H 12/19/20 08:00 Resp 20 12/19/20 08:00 BP 175/88 12/19/20 08:00 Pulse Ox 98 12/19/20 08:00 Intake & Output 12/18/20 12/19/20 12/19/20 18:59 06:59 18:59 Intake Total 1200 1360 694 Balance 1200 1360 694 Weight 78.6 kg Intake: Oral 1200 1360 694 Other: Voiding Method Toilet Toilet Toilet # Voids 2 3 2 - Exam Gen: awake, alert, obese HEENT: normocephalic, atraumatic, good hearing acuity, moist mucous membranes Resp: good air exchange, breathing comfortably with no accessory muscle use, clear to auscultation bilaterally without wheezes CVS: good distal perfusion x 4, regular rate and rhythm without murmurs GI: soft, NTTP, ND : no SPT, no CVAT, whitaker catheter is not present MSK: Bilateral pitting edema with venous stasis changes, no clubbing; left leg is warm to touch with clear areas of demarcation just below the knee, asymmetric swelling with erythema Neuro: non-focal, moving all extremities Psych: cooperative, euthymic mood - Labs CBC & Chem 7: 12/16/20 05:58 12/16/20 05:58 Labs: Abnormal Lab Results - Last 24 Hours (Table) 12/15/20 12/18/20 12/18/20 Range/Units 13:36 17:06 21:00 POC Glucose (mg/dL) 280 H 320 H (75-99) mg/dL Hemoglobin A1c 8.3 H (4.0-6.0) % 12/19/20 12/19/20 Range/Units 06:17 12:15 POC Glucose (mg/dL) 181 H 228 H (75-99) mg/dL Hemoglobin A1c (4.0-6.0) % Microbiology - Last 24 Hours (Table) 12/15/20 15:44 Blood Culture - Preliminary Blood No Growth after 72 hours Assessment and Plan Assessment: 1. Left Leg Cellulitis 2. Diabetes Type II 3. Hypertension 4. Hyperlipidemia 5. CKD stage IIIb/IV 6. Sinus Pauses 55 year old woman with DM/HTN/HLD, chronic venous stasis, CKD IIIb/IV presented with increasing leg pain, erythema, swelling in setting of recent fall and injury and was found to have cellulitis warranting admission for antibiotics. Plan: - admit to floor - f/u BCx = NGTD - given vancomycin/clindamycin in ER --> will give cipro/clinda, renally dose adjusted to cover MRSA/Pseudomonas - transitioned to cefazolin 3g q8h on 12/16 - transitioned to cephalexin 500mg TID on 12/18 - ID consult given highly elevated ESR/CRP, see above - hold home DM meds, aspart low dose SSI AC TID + levemir 10U qHS - continue home lisinopril, amlodipine - hold home metoprolol due to sinus pauses - likely home on ZIO patch - pulm consult recs CPAP prior to discharge and outpatient PSG - cardiology consult, appreciate recs - convert home simvastatin to atorvastatin and increase to 40mg qHS - IVF: 1L bolus in the ER - tylenol PRN for pain Full Code Heparin TID DVT PPx Follow up: will need outpatient PCN allergy testing
--- NOTE | 2020-12-19 15:44 | P.DS ---
Providers Date of admission: 12/15/20 15:22 Expected date of discharge: 12/19/20 Attending physician: Kerri Linn Consults: 12/15/20 16:57 Consult Physician Routine Consulting Provider: Mary Alicea Consult Reason/Comments: Cellulitis with very high ESR/CRP Do you want consulting provider notified?: Yes 12/17/20 11:34 Consult Physician Routine Consulting Provider: Ronn Ashley Consult Reason/Comments: sinus pauses > 2.5 seconds, up to 7.8 seconds Do you want consulting provider notified?: Yes 12/18/20 14:12 Consult Physician Routine Consulting Provider: Ricardo Ryan Consult Reason/Comments: SHO Do you want consulting provider notified?: Yes Primary care physician: Candida Aquino Hospital Course: 1. Left Leg Cellulitis 2. Diabetes Type II 3. Hypertension 4. Hyperlipidemia 5. CKD stage IIIb/IV 6. Sinus Pauses 55 year old woman with DM/HTN/HLD, chronic venous stasis, CKD IIIb/IV presented with increasing leg pain, erythema, swelling in setting of recent fall and injury and was found to have cellulitis warranting admission for antibiotics. She was started on cipro/flagyl and improved quickly, was seen by ID, then transitioned to cefazolin. On discharge sent home with cephalexin to complete 7 day course of antibiotics. Incidentally, she was noted to have long sinus pauses up to 7.8 seconds maximum while on metoprolol, and for this metoprolol was stopped and patient sent to cardiac unit. The following day, her pauses were decreased in length but still significant, and were most apparent while patient was napping, between 3-4 seconds in duration. This was felt to be secondary to patient's known SHO for which she is non-compliant on CPAP. Pt was then seen by the pulmonary medicine team, who arranged for a script for CPAP mac remi and for outpatient PSG. Patient's medical information was sent to [facility] for consideration of loaner CPAP while awaiting repeat PSG given severity of her sinus pauses, this was in pending status on discharge. Patient will be sent home with appropriate follow up instructions. Metoprolol was discontinued on home med rec. I spent 45 minutes preparing this discharge See same day progress note for physical exam for today. Patient Condition at Discharge: Good Plan - Discharge Summary Discharge Rx Participant: No New Discharge Prescriptions: New hydrALAZINE HCL [Apresoline] 25 mg PO BID #60 tab Cephalexin [Keflex] 500 mg PO TID #9 cap Continue glipiZIDE [Glucotrol] 5 mg PO HS Simvastatin [Zocor] 10 mg PO HS Acetaminophen Tab [Tylenol] 975 mg PO Q4H PRN PRN Reason: Pain amLODIPine [Norvasc] 10 mg PO HS Changed lisinopriL 40 mg PO HS #0 Discontinued Metoprolol Tartrate [Lopressor] 100 mg PO HS Discharge Medication List glipiZIDE [Glucotrol] 5 mg PO HS 05/28/19 [History] Acetaminophen Tab [Tylenol] 975 mg PO Q4H PRN 12/15/20 [History] Simvastatin [Zocor] 10 mg PO HS 12/15/20 [History] amLODIPine [Norvasc] 10 mg PO HS 12/15/20 [History] Cephalexin [Keflex] 500 mg PO TID #9 cap 12/19/20 [Rx] hydrALAZINE HCL [Apresoline] 25 mg PO BID #60 tab 12/19/20 [Rx] lisinopriL 40 mg PO HS #0 12/19/20 [Rx] Follow up Appointment(s)/Referral(s): Candida Aquino MD [Primary Care Provider] - 1-2 days Modesto Syed MD [STAFF PHYSICIAN] - 01/20/21 9:30 am Discharge Disposition: HOME SELF-CARE
--- NOTE | 2020-12-19 16:22 | P.CNPUL ---
History of Present Illness Consult date: 12/19/20 Requesting physician: Harshad Hirsch Reason for consult: obstructive sleep apnea Chief complaint: Obstructive sleep apnea, sinus pauses History of present illness: 55-year-old white female patient with past medical history of obstructive sleep apnea, noncompliant with CPAP related to inability to tolerate a full face mask, and patient no longer has a CPAP device related to noncompliance. Other medical history is that of diabetes poultice type II, hypertension, chronic kidney disease II/IV, lifetime nonsmoker, chronic venous stasis. Patient presented to the emergency department on 12/15/2020 for evaluation of pain and swelling to the left lower extremity, patient reports a fall on 12/01/2019. The fall was mechanical in nature, she slipped and landed on her left knee. Her left santos has been progressively red and swollen and she was having trouble bending the knee due to swelling. No previous history of DVT or PE. No chest pain, shortness of breath, no complaints of hemoptysis, no fever or chills. Lower extremity Doppler was negative for DVT, but did show evidence of lymphadenopathy in the left groin.. X-ray of the left leg showed soft tissue swelling, no fracture.. Her COVID19 negative. Left lower extremity was warm and swollen, without An wounds or any drainage, patient was started on antibiotics for lower extremity cellulitis. In the course of her hospitalization patient was noted to have sinus pauses on nurse monitoring, and most are running between 2 and 4 seconds with the longest one up to 7.8 seconds. Patient was asymptomatic, patient was seen by cardiology, her dose of Lopressor of 100 mg at bedtime was held. Echocardiogram showed preserved LV function with an EF of 60-65%, mild enlargement of the right ventricle, mild aortic stenosis, can't exclude possibility of bicuspid aortic valve, mild tricuspid regurgitation, pulmonary hypertension with PA systolic of 43 mmHg. In view of her history of noncompliance with the CPAP device, and patient having sinus pauses we were consulted for evaluation of patient's obstructive sleep apnea. During our evaluation patient is on 3 L of oxygen her pulse ox of 90%, room air pulse ox was 98%, she is breathing comfortably, lung sounds are clear, she is drowsy, but easily arousable to verbal stimulation, she is providing history of present illness, she states she could not tolerate a full face mask, she has not been wearing a CPAP device at home. Upon further investigation patient had a home sleep study in 2019, with APAP pressure of 5-15. Review of Systems All systems: negative Constitutional: Reports daytime sleepiness, Reports fatigue, Reports lethargy, Reports weight gain, Denies chills, Denies fever Eyes: denies blurred vision, denies pain Ears, nose, mouth and throat: Denies headache, Denies sore throat Cardiovascular: Reports edema, Reports leg edema, Denies chest pain, Denies shortness of breath Respiratory: Reports dyspnea, Reports sleep apnea, Denies cough Gastrointestinal: Denies abdominal pain, Denies diarrhea, Denies nausea, Denies vomiting Genitourinary: Denies dysuria, Denies hematuria Musculoskeletal: Denies myalgias Integumentary: Denies pruritus, Denies rash Neurological: Denies numbness, Denies weakness Psychiatric: Denies anxiety, Denies depression Endocrine: Denies fatigue, Denies weight change Past Medical History Past Medical History: Diabetes Mellitus, Eye Disorder, Hypertension, Renal Disease, Vascular Disorder Additional Past Medical History / Comment(s): NIDDM type II, neuropathy bilateral feet, recurrent cellulitis bilateral legs with left leg worse, past bilateral venous leg ulcers, varicosities bilaterally, 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 History of Any Multi-Drug Resistant Organisms: None Reported Past Surgical History: Tonsillectomy Additional Past Surgical History / Comment(s): Peripheral access/procedure to improve blood flow thru tongue x3 Past Anesthesia/Blood Transfusion Reactions: No Reported Reaction Past Psychological History: No Psychological Hx Reported Smoking Status: Never smoker Past Alcohol Use History: Rare Past Drug Use History: Marijuana - Past Family History Father Family Medical History: Cancer Additional Family Medical History / Comment(s): Father had throat cancer. He is . He was a smoker. Mother Family Medical History: Cancer Additional Family Medical History / Comment(s): Mother had breast and lung cancer. She was a smoker. She is . Medications and Allergies Home Medications Medication Instructions Recorded Confirmed Type glipiZIDE [Glucotrol] 5 mg PO HS 05/28/12/15/20 History Acetaminophen Tab [Tylenol] 975 mg PO Q4H PRN 12/15/20 12/15/20 History Simvastatin [Zocor] 10 mg PO HS 12/15/20 12/15/20 History amLODIPine [Norvasc] 10 mg PO HS 12/15/20 12/15/20 History Cephalexin [Keflex] 500 mg PO TID #9 cap 12/19/20 Rx hydrALAZINE HCL [Apresoline] 25 mg PO BID #60 tab 12/19/20 Rx lisinopriL 40 mg PO HS #0 12/19/20 12/15/20 Rx Allergies Allergy/AdvReac Type Severity Reaction Status Date / Time Penicillins Allergy Unknown Unknown Verified 12/15/20 14:11 Childhood Physical Exam Vitals: Vital Signs Temp Pulse Resp BP Pulse Ox 12/19/20 08:00 98.4 F 104 H 20 175/88 98 12/19/20 03:31 87 18 146/90 98 12/19/20 01:55 92 20 12/19/20 00:00 92 20 143/84 93 L 12/18/20 20:00 97.8 F 92 20 179/89 97 12/18/20 17:26 193/92 Intake and Output 12/19/20 12/19/20 12/19/20 06:59 14:59 22:59 Intake Total 694 Balance 694 Intake: Oral 694 Other: Voiding Method Toilet Toilet # Voids 3 2 Weight 78.6 kg GENERAL EXAM: Alert, very pleasant, 55-year-old white female on 3 L of oxygen the pulse ox 93% comfortable in no apparent distress. HEAD: Normocephalic/atraumatic. EYES: Normal reaction of pupils, equal size. Conjunctiva pink, sclera white. NOSE: Clear with pink turbinates. THROAT: No erythema or exudates. NECK: No masses, no JVD, no thyroid enlargement, no adenopathy. CHEST: No chest wall deformity. Symmetrical expansion. LUNGS: Equal air entry with no crackles, wheeze, rhonchi or dullness. CVS: Regular rate and rhythm, normal S1 and S2, no gallops, no murmurs, no rubs ABDOMEN: Soft, nontender. No hepatosplenomegaly, normal bowel sounds, no guarding or rigidity. EXTREMITIES: No clubbing, 1+ nonpitting lower extremity edema, with left lower extremity slightly more swollen and warm to touch, Sid wrapped. no cyanosis, 2+ pulses and upper and lower extremities. MUSCULOSKELETAL: Muscle strength and tone normal. SPINE: No scoliosis or deformity SKIN: No rashes CENTRAL NERVOUS SYSTEM: Alert and oriented -3. No focal deficits, tone is normal in all 4 extremities. PSYCHIATRIC: Alert and oriented -3. Appropriate affect. Intact judgment and insight. Results - Laboratory Findings CBC and BMP: 12/16/20 05:58 12/16/20 05:58 Abnormal lab findings: Abnormal Labs 12/15/20 12/15/20 12/15/20 13:36 13:36 13:36 WBC 11.3 H RBC Hgb 10.6 L Hct MCH MCHC 30.5 L RDW 16.7 H MPV Neutrophils # 9.7 H Lymphocytes # 0.8 L ESR 93 H Chloride 108 H BUN 38 H Creatinine 2.09 H Est GFR (CKD-EPI)AfAm Est GFR (CKD-EPI)NonAf Glucose 297 H POC Glucose (mg/dL) Hemoglobin A1c 8.3 H Calcium Alkaline Phosphatase 129 H C-Reactive Protein 180.0 H Albumin 3.3 L 12/15/20 12/16/20 12/16/20 21:02 05:58 05:58 WBC RBC 3.86 L Hgb 9.9 L Hct 35.9 L MCH 25.6 L MCHC 27.6 L RDW 16.8 H MPV 9.1 L Neutrophils # Lymphocytes # 0.75 L ESR Chloride BUN 33.0 H Creatinine 2.1 H Est GFR (CKD-EPI)AfAm 30.0 L Est GFR (CKD-EPI)NonAf 25.8 L Glucose 235 H POC Glucose (mg/dL) 269 H Hemoglobin A1c Calcium 8.0 L Alkaline Phosphatase C-Reactive Protein Albumin 12/16/20 12/16/20 12/16/20 07:18 11:30 17:09 WBC RBC Hgb Hct MCH MCHC RDW MPV Neutrophils # Lymphocytes # ESR Chloride BUN Creatinine Est GFR (CKD-EPI)AfAm Est GFR (CKD-EPI)NonAf Glucose POC Glucose (mg/dL) 220 H 183 H 240 H Hemoglobin A1c Calcium Alkaline Phosphatase C-Reactive Protein Albumin 12/16/20 12/17/20 12/17/20 20:43 07:06 12:41 WBC RBC Hgb Hct MCH MCHC RDW MPV Neutrophils # Lymphocytes # ESR Chloride BUN Creatinine Est GFR (CKD-EPI)AfAm Est GFR (CKD-EPI)NonAf Glucose POC Glucose (mg/dL) 301 H 227 H 417 H Hemoglobin A1c Calcium Alkaline Phosphatase C-Reactive Protein Albumin 12/17/20 12/17/20 12/18/20 17:14 19:59 06:01 WBC RBC Hgb Hct MCH MCHC RDW MPV Neutrophils # Lymphocytes # ESR Chloride BUN Creatinine Est GFR (CKD-EPI)AfAm Est GFR (CKD-EPI)NonAf Glucose POC Glucose (mg/dL) 164 H 229 H 178 H Hemoglobin A1c Calcium Alkaline Phosphatase C-Reactive Protein Albumin 12/18/20 12/18/20 12/18/20 12:10 17:06 21:00 WBC RBC Hgb Hct MCH MCHC RDW MPV Neutrophils # Lymphocytes # ESR Chloride BUN Creatinine Est GFR (CKD-EPI)AfAm Est GFR (CKD-EPI)NonAf Glucose POC Glucose (mg/dL) 174 H 280 H 320 H Hemoglobin A1c Calcium Alkaline Phosphatase C-Reactive Protein Albumin 12/19/20 12/19/20 06:17 12:15 WBC RBC Hgb Hct MCH MCHC RDW MPV Neutrophils # Lymphocytes # ESR Chloride BUN Creatinine Est GFR (CKD-EPI)AfAm Est GFR (CKD-EPI)NonAf Glucose POC Glucose (mg/dL) 181 H 228 H Hemoglobin A1c Calcium Alkaline Phosphatase C-Reactive Protein Albumin - Diagnostic Findings Additional studies: Venous Doppler study, x-ray of the tibia and fibula Assessment and Plan Plan: Assessment: #1. Obstructive sleep apnea, noncompliant with CPAP, based on previous home sleep study patient was prescribed CPAP with APAP of 5 cm-15 cm H2O, but has not been able to tolerate a full facemask #2. Left lower extremity cellulitis, DVT ruled out #3. Chronic bilateral lower extremity swelling #4. Sinus pauses while sleeping, asymptomatic, possibly related to underlying obstructive sleep apnea, has been evaluated by cardiology, beta blockers adjusted #5. Diabetes mellitus type 2 #6. Hypertension #7. Hyperlipidemia #8. Chronic kidney disease II/IV Plan: We spoke to discharge planning who is working with [facility] to obtain loaner CPAP device at previously prescribed settings based on the home study from 2019. However patient is stable for discharge home from pulmonary perspective if cleared by cardiology. Hemodynamically stable, she can follow up with Dr. Syed in the office, she will need outpatient sleep study. For now we will give the patient a nasal pillows with her loaner CPAP device, as the patient was previously unable to tolerate full facemask. I performed a history & physical examination of the patient and discussed their management with my nurse practitioner, Ana Cristina Onofre. I reviewed the nurse practitioner's note and agree with the documented findings and plan of care. Lung sounds are positive for diminished breath sounds. The findings and the impression was discussed with the patient. I attest to the documentation by the nurse practitioner. Time with Patient: Greater than 30
--- NOTE | 2020-12-21 01:46 | CDI ---
Documentation Clarification Form Date: 12/21/2020 From: Nawaf Rodriguez Phone: If you have a question about this query, please contact Mary Melgoza Fire Alarm Inspector at [phone] between 8am and 5pm. Admit Date: 12/15/2020 03:22:00 PM Patient Name: Barbara Sullivan Visit Number: [id number] Discharge Date: 12/19/2020 04:52:00 PM ATTENTION: The Clinical Documentation Specialists (CDI) and [facility] Coding Staff appreciate your assistance in clarifying documentation. Please respond to the clarification below the line at the bottom and electronically sign. The CDI & [facility] Coding staff will review the response and follow-up if needed. Please note: Queries are made part of the Legal Health Record. If you have any questions, please contact the author of this message via ITS. Harshad Silva MD Your patient has the documented diagnosis of Cellulitis and DM type 2 in your notes. A relationship between diagnoses cannot be assumed unless documented as such by the attending physician. In order to capture the severity of condition; please document the relationship, if any, between these diagnoses. History/Risk Factors: DM type 2, CKD stage 4, Cellulitis, Venous stasis Clinical Indicators:55 year old woman with DM/HTN/HLD, chronic venous stasis, CKD IIIb/IV presented with increasing leg pain, erythema, swelling in setting of recent fall and injury and was found to have cellulitis warranting admission for antibiotics. Treatment:IV antibiotics. Please clarify and document your clinical opinion in the progress notes and discharge summary if any relationship (due to, caused by, secondary to) exists between these two diagnoses. Cellulitis related to DM type 2 Cellulitis not related to DM type 2 Other explanation of clinical findings (please specify) Unable to determine (no explanation for clinical findings) Cellulitis related to DM and venous stasis MTDD
== END 2020-12-19 16:52 | disposition home or self-care (01) | DRG 603 ==
LOC: EC 12:02 → 5NMEDONC 15:22 → 3SCARD 12-17 12:17
PROVIDERS: ADMIT Internal Medicine; ATTEND Internal Medicine
DX: L03.116 Cellulitis of left lower limb (principal); N18.4 Chronic kidney disease, stage 4 (severe); L97.929 Non-pressure chronic ulcer of unspecified part of left lower leg with unspecified severity; I87.312 Chronic venous hypertension (idiopathic) with ulcer of left lower extremity; E11.22 Type 2 diabetes mellitus with diabetic chronic kidney disease; E11.622 Type 2 diabetes mellitus with other skin ulcer; E78.5 Hyperlipidemia, unspecified; F12.90 Cannabis use, unspecified, uncomplicated; G47.33 Obstructive sleep apnea (adult) (pediatric); I12.9 Hypertensive chronic kidney disease with stage 1 through stage 4 chronic kidney disease, or unspecified chronic kidney disease; I87.309 Chronic venous hypertension (idiopathic) without complications of unspecified lower extremity; I87.2 Venous insufficiency (chronic) (peripheral); Z20.822 Contact with and (suspected) exposure to COVID-19; I87.8 Other specified disorders of veins; Z79.84 Long term (current) use of oral hypoglycemic drugs; Z91.19 Patient's noncompliance with other medical treatment and regimen; Z88.0 Allergy status to penicillin; Z80.8 Family history of malignant neoplasm of other organs or systems; Z80.1 Family history of malignant neoplasm of trachea, bronchus and lung; Z79.899 Other long term (current) drug therapy
CPT/HCPCS: 36415; 80048; 80053; 83036; 83605; 83735; 85025; 85652; 86140; 87040; 87635; 93306; 96361; 96365; 96375; 99285

== ENCOUNTER → 2021-01-11 | Outpatient (CLI) | payer BC ==
--- NOTE | 2021-01-18 11:04 | P.ARTDOP ---
Arterial Doppler LOWER EXTREMITY ARTERIAL DOPPLER: DATE OF SERVICE: 01/11/2021 Reason for study: Left ankle ulcer. Doppler waveforms: Multiphasic bilaterally. Pulse volume recording: []. Pressure gradients: Mild gradient across the knee on the right and below the knee on the left. Ankle-brachial indices: 0.93 on the right and 0.75 on the left. Toe brachial indices: 0.6 on the right, 0.6 on the left Impression: Mild right fem-pop disease and moderate left fem-pop disease. Clinical correlation suggested. Probably adequate circulation for healing..
== END | disposition home or self-care (01) ==
LOC: RADUSWWP 14:27
PROVIDERS: ATTEND Thoracic Surgery (Cardiothoracic Vascular Surgery)
DX: I73.9 Peripheral vascular disease, unspecified (principal)
CPT/HCPCS: 93923

== ENCOUNTER → 2021-08-11 | Outpatient (CLI) | payer BC ==
--- NOTE | 2021-08-11 11:36 | US ---
EXAMINATION TYPE: US carotid duplex BILAT DATE OF EXAM: 08/11/2021 COMPARISON: NONE CLINICAL HISTORY: R42 DIZZINESS. EXAM MEASUREMENTS: RIGHT: Peak Systolic Velocity (PSV) cm/sec ----- Right CCA: 84.9 ----- Right ICA: 74.6 ----- Right ECA: 104.8 ICA/CCA ratio: 0.9 RIGHT: End Diastole cm/sec ----- Right CCA: 20.2 ----- Right ICA: 24.1 ----- Right ECA: 12.8 LEFT: Peak Systolic Velocity (PSV) cm/sec ----- Left CCA: 67.2 ----- Left ICA: 76.2 ----- Left ECA: 91.8 ICA/CCA ratio: 1.1 LEFT: End Diastole cm/sec ----- Left CCA: 18.0 ----- Left ICA: 33.6 ----- Left ECA: 20.6 VERTEBRALS (direction of flow): Right Vertebral: Antegrade Left Vertebral: Antegrade Rhythm: Normal Small amount of plaque seen in bilateral bulb No elevated velocities IMPRESSION: 1. Atherosclerotic plaque with no significant hemodynamic stenosis. Criteria for Assigning % of Stenosis / Diameter reduction (Estimation based on the indirect measurements of the internal carotid artery velocities (ICA PSV). 1. Normal (no stenosis)=ICA PSV < 125 cm/s: ratio < 2.0: ICA EDV<40 cm/s. 2. Less than 50% stenosis=ICA PSV < 125 cm/s: ratio < 2.0: ICA EDV<40 cm/s. 3. 50 to 69% stenosis=ICA PSV of 125 to 230 cm/s: ration 2.0 ? 4.0: ICA EDV 40-100 cm/s. 4. Greater than 70% stenosis to near occlusion= ICA PSV > 230 cm/s: ratio > 4.0: ICA EDV > 100 cm/s. 5. Near occlusion= ICA PSV velocities may be low or undetectable: variable ratio and ICA EDV. 6. Total occlusion=unable to detect flow.
== END | disposition home or self-care (01) ==
LOC: RADUSWWP 10:29
PROVIDERS: ATTEND Family Medicine
DX: I65.23 Occlusion and stenosis of bilateral carotid arteries (principal)
CPT/HCPCS: 93880

== ENCOUNTER 2024-08-12 06:24 | Inpatient (IN) | payer BC ==
--- NOTE | 2024-08-12 07:40 | ED ---
General Adult HPI - General Chief complaint: Shortness of Breath Stated complaint: SOB Time Seen by Provider: 08/12/24 06:40 Source: patient, RN notes reviewed Mode of arrival: EMS - History of Present Illness Initial comments: This is a 59-year-old female with history of diabetes and hypertension presenting via EMS for shortness of breath x 2 days. Patient endorses seeing primary care yesterday where her pulse oximeter reading was 76%. Endorses sleepiness and dozing while driving. States she was pulled over by police, explaining her situation, and followed her home safely. Patient states she was having similar symptoms while driving this morning while going to work. Patient endorses chronic history of poor sleep, 4 to 5 hours per night. 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 Patient endorses receiving treatment to "shrink" her tumor in her 30s with states she has not had the insurance to do it for the past 20 years. States tumor has been growing since that time, occluding her airway especially when lying supine at night. Patient states that this is the cause of her hypoxia poor sleep and difficulty breathing. Patient denies O2 dependence, smoking history, COPD, emphysema, chest pain, radiating pain. Onset/Timin -: days(s) - Related Data Home Medications Medication Instructions Recorded Confirmed amLODIPine [Norvasc] 10 mg PO DAILY 12/15/20 08/12/24 Atorvastatin Calcium [Lipitor] 40 mg PO DAILY 08/12/24 08/12/24 Metoprolol Tartrate [Lopressor] 50 mg PO BID 08/12/24 08/12/24 Sodium Bicarbonate Tab 650 mg PO DAILY 08/12/24 08/12/24 glipiZIDE [Glucotrol] 2.5 mg PO AC-BRKFST 08/12/24 08/12/24 hydrALAZINE HCL 50 mg PO TID 08/12/24 08/12/24 lisinopriL [Zestril] 2.5 mg PO DAILY 08/12/24 08/12/24 Allergies Allergy/AdvReac Type Severity Reaction Status Date / Time Penicillins Allergy Unknown Unknown Verified 08/12/24 13:42 Childhood Review of Systems ROS Statement: Those systems with pertinent positive or pertinent negative responses have been documented in the HPI. ROS Other: All systems not noted in ROS Statement are negative. 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 History of Any Multi-Drug Resistant Organisms: None Reported Past Surgical History: Tonsillectomy Additional Past Surgical History / Comment(s): Peripheral access/procedure to improve blood flow thru tongue x3 Past Anesthesia/Blood Transfusion Reactions: No Reported Reaction Past Psychological History: No Psychological Hx Reported Smoking Status: Never smoker Past Alcohol Use History: Rare Past Drug Use History: Marijuana - Past Family History Father Family Medical History: Cancer Additional Family Medical History / Comment(s): Father had throat cancer. He is . He was a smoker. Mother Family Medical History: Cancer Additional Family Medical History / Comment(s): Mother had breast and lung cancer. She was a smoker. She is . General Exam - General Exam Comments Initial Comments: Patient spontaneously fell asleep during physical examination. Patient demonstrating loud snoring and sleep apnea throughout time in the ER. Pulse oximetry reading above 96% throughout interview and physical exam. General appearance: alert, in no apparent distress Head exam: Present: atraumatic, normocephalic, normal inspection Eye exam: Present: normal appearance, PERRL, EOMI. Absent: scleral icterus, conjunctival injection, periorbital swelling ENT exam: Present: normal exam, mucous membranes moist, other Neck exam: Present: normal inspection. Absent: tenderness, meningismus, lymphadenopathy Respiratory exam: Present: decreased breath sounds (Slightly diminished breath sounds in bilateral lower lobes without rhonchi, obvious rales or wheezing.). Absent: respiratory distress, wheezes, rales, rhonchi, stridor Cardiovascular Exam: Present: regular rate, normal rhythm, normal heart sounds. Absent: systolic murmur, diastolic murmur, rubs, gallop, clicks GI/Abdominal exam: Present: soft, normal bowel sounds. Absent: distended, tenderness, guarding, rebound, rigid Extremities exam: Present: normal inspection, full ROM, normal capillary refill. Absent: tenderness, pedal edema, joint swelling, calf tenderness Back exam: Present: normal inspection Neurological exam: Present: alert, oriented X3, CN II-XII intact Psychiatric exam: Present: normal affect, normal mood Skin exam: Present: warm, dry, intact, normal color. Absent: rash Course Vital Signs 08/12/24 08/12/24 08/12/24 06:26 07:26 08:30 Temperature 97.6 F 97.7 F Pulse Rate 85 97 64 Respiratory 24 17 16 Rate Blood Pressure 141/83 143/71 145/77 O2 Sat by Pulse 97 95 95 Oximetry Fraction of Inspired Oxygen (FIO2) 08/12/24 08/12/24 08/12/24 09:05 10:20 10:39 Temperature 97.6 F Pulse Rate 81 80 78 Respiratory 19 23 16 Rate Blood Pressure 151/75 130/62 145/76 O2 Sat by Pulse 95 97 98 Oximetry Fraction of Inspired Oxygen (FIO2) 08/12/24 08/12/24 08/12/24 11:36 12:12 12:31 Temperature Pulse Rate 82 82 Respiratory 17 15 Rate Blood Pressure 140/79 172/85 O2 Sat by Pulse 95 97 Oximetry Fraction of 40 Inspired Oxygen (FIO2) 08/12/24 08/12/24 08/12/24 14:19 15:21 15:36 Temperature Pulse Rate 86 67 Respiratory 17 13 Rate Blood Pressure 150/83 140/71 O2 Sat by Pulse 97 94 L Oximetry Fraction of 40 Inspired Oxygen (FIO2) Medical Decision Making - Medical Decision Making Was pt. sent in by a medical professional or institution (, PA, ONCOLOGY RADIATION PHYSICIAN, urgent care, hospital, or snf...) When possible be specific @ -[No] Did you speak to anyone other than the patient for history (EMS, parent, family, police, friend...)? What history was obtained from this source @ -[No] Did you review nursing and triage notes (agree or disagree)? Why? @ -[I reviewed and agree with nursing and triage notes] Were old charts reviewed (outside hosp., previous admission, EMS record, old EKG, old radiological studies, urgent care reports/EKG's, snf records)? Report findings @ -Yes old lab work was reviewed from 2017 with GFR noted to have dropped from 32, now at 14. Differential Diagnosis (chest pain, altered mental status, abdominal pain women, abdominal pain men, vaginal bleeding, weakness, fever, dyspnea, syncope, headac he, dizziness, GI bleed, back pain, seizure, CVA, palpatations, mental health, musculoskeletal)? @ -Differential Dyspnea: Coronary syndrome, arrhythmia, tamponade, asthma, COPD, pulmonary embolism, p neumonia, pneumothorax, pulmonary effusion, anaphylaxis, diabetic ketoacidosis, flailed chest, pulmonary contusion, diaphragmatic rupture, anemia, neuromuscular, this is not meant to be an all-inclusive list. EKG interpreted by me (3pts min.). @ -Sinus rhythm with sinus arrhythmia. Negative ST elevation, ST depression, T wave inversion. Ventricular rate 74 bpm, IN interval 189 ms, QRS duration 102 ms, QT/QTc 389/460 ms. X-rays interpreted by me (1pt min.). @ -Chest x-ray reveals diffuse pulmonary edema especially in left lobe CT interpreted by me (1pt min.). @ -[None done] U/S interpreted by me (1pt. min.). @ -[None done] What testing was considered but not performed or refused? (CT, X-rays, U/S, labs)? Why? @ -[None] What meds were considered but not given or refused? Why? @ -[None] Did you discuss the management of the patient with other professionals (professionals i.e. , PA, ONCOLOGY RADIATION PHYSICIAN, lab, RT, psych nurse, socially responsible investment adviser, device repair technician, teacher, airframe technical officer, caser in)? Give summary @ -Yes. Spoke to Dr. Mejia [id number]. Discussed patient's HPI, physical exam findings, test results and treatment provided so far. Physician provides thanks for report and will continue ongoing care in preparation for admission. Was smoking cessation discussed for >3mins.? @ -[No] Was critical care preformed (if so, how long)? @ -[No] Were there social determinants of health that impacted care today? How? (Homelessness, low income, unemployed, alcoholism, drug addiction, transportation, low edu. Level, literacy, decrease access to med. care, intermediate, rehab)? @ -[No] Was there de-escalation of care discussed even if they declined (Discuss DNR or withdrawal of care, Hospice)? DNR status @ -[No] What co-morbidities impacted this encounter? (DM, HTN, Smoking, COPD, CAD, Cancer, CVA, ARF, Chemo, Hep., AIDS, mental health diagnosis, sleep apnea, morbid obesity)? @ -[None] Was patient admitted / discharged? Hospital course, mention meds given and route, prescriptions, significant lab abnormalities, going to OR and other pertinent info. @ -Admitted chest x-ray today and lab work performed labs showed elevated BNP. ABG shows acidosis, hypercarbia and hypoxia. GFR was also significantly diminished and blood glucose was elevated. Patient given Lasix for pulmonary edema and placed on BiPAP. Ortiz catheterization initiated in [facility] hospitalist notified for admission. Major concerns for patient include GFR, abnormal ABG, airway obstruction causing recurring hypoxia, heart failure with pulmonary edema, sleep apnea and poorly controlled diabetes. Undiagnosed new problem with uncertain prognosis? @ -Yes Drug Therapy requiring intensive monitoring for toxicity (Heparin, Nitro, Insulin, Cardizem)? @ -[No] Were any procedures done? @ -[No] Diagnosis/symptom? @ -MANINDER, CKD, hypoxemia, pulmonary edema, acute heart failure, sleep apnea, uncontrolled type 2 diabetes Acute, or Chronic, or Acute on Chronic? @ -Acute on chronic Uncomplicated (without systemic symptoms) or Complicated (systemic symptoms)? @ -Complicated Side effects of treatment? @ -[No] Exacerbation, Progression, or Severe Exacerbation? @ -Severe exacerbation Poses a threat to life or bodily function? How? (Chest pain, USA, NV, pneumonia, PE, COPD, DKA, ARF, appy, cholecystitis, CVA, Diverticulitis, Homicidal, Suicidal, threat to staff... and all critical care pts) @ -Heart failure, pulmonary edema, MANINDER/CKD - Lab Data Result diagrams: 08/12/24 07:59 08/12/24 07:59 Lab Results 08/12/24 08/12/24 08/12/24 Range/Units 07:59 07:59 10:26 WBC 10.0 (3.8-10.6) k/uL RBC 3.86 (3.80-5.40) m/uL Hgb 11.0 L (11.4-16.0) gm/dL Hct 37.5 (34.0-46.0) % MCV 97.2 (80.0-100.0) fL MCH 28.4 (25.0-35.0) pg MCHC 29.2 L (31.0-37.0) g/dL RDW 15.5 (11.5-15.5) % Plt Count 299 (150-450) k/uL MPV 7.0 Neutrophils % 80 % Lymphocytes % 9 % Monocytes % 6 % Eosinophils % 2 % Basophils % 0 % Neutrophils # 8.0 H (1.3-7.7) k/uL Lymphocytes # 0.9 L (1.0-4.8) k/uL Monocytes # 0.6 (0-1.0) k/uL Eosinophils # 0.2 (0-0.7) k/uL Basophils # 0.0 (0-0.2) k/uL Hypochromasia Marked Sample Site ABG pH (7.35-7.45) ABG pCO2 (35-45) mmHg ABG pO2 (83-108) mmHg ABG HCO3 (21-25) mmol/L ABG Total CO2 (19-24) mmol/L ABG O2 Saturation (94-97) % ABG Base Excess mmol/L Donald Test VBG pH (7.31-7.41) VBG pCO2 (37-51) mmHg VBG HCO3 (24-28) mmol/L Hemoglobin (11.4-16.0) gm/dL FiO2 % Sodium 143 (137-145) mmol/L Potassium 5.1 (3.5-5.1) mmol/L Chloride 111 H (98-107) mmol/L Carbon Dioxide 25 (22-30) mmol/L Anion Gap 7 mmol/L BUN 61 H (7-17) mg/dL Creatinine 3.36 H (0.52-1.04) mg/dL Est GFR (CKD-EPI)AfAm 16 (>60 ml/min/1.73 sqM) Est GFR (CKD-EPI)NonAf 14 (>60 ml/min/1.73 sqM) Glucose 215 H (74-99) mg/dL POC Glucose (mg/dL) (70-110) mg/dL POC Glu Enrollment Consultant ID Calcium 8.5 (8.4-10.2) mg/dL Magnesium 2.2 (1.6-2.3) mg/dL Total Bilirubin 0.4 (0.2-1.3) mg/dL AST 25 (14-36) U/L ALT 23 (4-34) U/L Alkaline Phosphatase 103 (38-126) U/L Creatine Kinase (30-135) U/L Troponin I (0.000-0.034) ng/mL NT-Pro-B Natriuret Pep 2180 pg/mL Total Protein 6.0 L (6.3-8.2) g/dL Albumin 3.1 L (3.5-5.0) g/dL Influenza Type A (PCR) (Not Detectd) Influenza Type B (PCR) (Not Detectd) RSV (PCR) (Not Detectd) SARS-CoV-2 (PCR) (Not Detectd) 08/12/24 08/12/24 08/12/24 Range/Units 10:26 11:25 11:52 WBC (3.8-10.6) k/uL RBC (3.80-5.40) m/uL Hgb (11.4-16.0) gm/dL Hct (34.0-46.0) % MCV (80.0-100.0) fL MCH (25.0-35.0) pg MCHC (31.0-37.0) g/dL RDW (11.5-15.5) % Plt Count (150-450) k/uL MPV Neutrophils % % Lymphocytes % % Monocytes % % Eosinophils % % Basophils % % Neutrophils # (1.3-7.7) k/uL Lymphocytes # (1.0-4.8) k/uL Monocytes # (0-1.0) k/uL Eosinophils # (0-0.7) k/uL Basophils # (0-0.2) k/uL Hypochromasia Sample Site Right Radial ABG pH 7.17 L* (7.35-7.45) ABG pCO2 68 H (35-45) mmHg ABG pO2 77 L (83-108) mmHg ABG HCO3 25 (21-25) mmol/L ABG Total CO2 27 H (19-24) mmol/L ABG O2 Saturation 94.9 (94-97) % ABG Base Excess -5.0 mmol/L Donald Test Yes VBG pH (7.31-7.41) VBG pCO2 (37-51) mmHg VBG HCO3 (24-28) mmol/L Hemoglobin 11.9 (11.4-16.0) gm/dL FiO2 40 % Sodium (137-145) mmol/L Potassium (3.5-5.1) mmol/L Chloride (98-107) mmol/L Carbon Dioxide (22-30) mmol/L Anion Gap mmol/L BUN (7-17) mg/dL Creatinine (0.52-1.04) mg/dL Est GFR (CKD-EPI)AfAm (>60 ml/min/1.73 sqM) Est GFR (CKD-EPI)NonAf (>60 ml/min/1.73 sqM) Glucose (74-99) mg/dL POC Glucose (mg/dL) (70-110) mg/dL POC Glu Enrollment Consultant ID Calcium (8.4-10.2) mg/dL Magnesium (1.6-2.3) mg/dL Total Bilirubin (0.2-1.3) mg/dL AST (14-36) U/L ALT (4-34) U/L Alkaline Phosphatase (38-126) U/L Creatine Kinase (30-135) U/L Troponin I 0.012 (0.000-0.034) ng/mL NT-Pro-B Natriuret Pep pg/mL Total Protein (6.3-8.2) g/dL Albumin (3.5-5.0) g/dL Influenza Type A (PCR) Not Detected (Not Detectd) Influenza Type B (PCR) Not Detected (Not Detectd) RSV (PCR) Not Detected (Not Detectd) SARS-CoV-2 (PCR) Not Detected (Not Detectd) 08/12/24 08/12/24 08/12/24 Range/Units 13:31 14:50 14:53 WBC (3.8-10.6) k/uL RBC (3.80-5.40) m/uL Hgb (11.4-16.0) gm/dL Hct (34.0-46.0) % MCV (80.0-100.0) fL MCH (25.0-35.0) pg MCHC (31.0-37.0) g/dL RDW (11.5-15.5) % Plt Count (150-450) k/uL MPV Neutrophils % % Lymphocytes % % Monocytes % % Eosinophils % % Basophils % % Neutrophils # (1.3-7.7) k/uL Lymphocytes # (1.0-4.8) k/uL Monocytes # (0-1.0) k/uL Eosinophils # (0-0.7) k/uL Basophils # (0-0.2) k/uL Hypochromasia Sample Site ABG pH (7.35-7.45) ABG pCO2 (35-45) mmHg ABG pO2 (83-108) mmHg ABG HCO3 (21-25) mmol/L ABG Total CO2 (19-24) mmol/L ABG O2 Saturation (94-97) % ABG Base Excess mmol/L Donald Test VBG pH 7.22 L (7.31-7.41) VBG pCO2 61 H (37-51) mmHg VBG HCO3 25 (24-28) mmol/L Hemoglobin (11.4-16.0) gm/dL FiO2 % Sodium (137-145) mmol/L Potassium (3.5-5.1) mmol/L Chloride (98-107) mmol/L Carbon Dioxide (22-30) mmol/L Anion Gap mmol/L BUN (7-17) mg/dL Creatinine (0.52-1.04) mg/dL Est GFR (CKD-EPI)AfAm (>60 ml/min/1.73 sqM) Est GFR (CKD-EPI)NonAf (>60 ml/min/1.73 sqM) Glucose (74-99) mg/dL POC Glucose (mg/dL) 138 H (70-110) mg/dL POC Glu Enrollment Consultant ID Jim Pack Calcium (8.4-10.2) mg/dL Magnesium (1.6-2.3) mg/dL Total Bilirubin (0.2-1.3) mg/dL AST (14-36) U/L ALT (4-34) U/L Alkaline Phosphatase (38-126) U/L Creatine Kinase 113 (30-135) U/L Troponin I (0.000-0.034) ng/mL NT-Pro-B Natriuret Pep pg/mL Total Protein (6.3-8.2) g/dL Albumin (3.5-5.0) g/dL Influenza Type A (PCR) (Not Detectd) Influenza Type B (PCR) (Not Detectd) RSV (PCR) (Not Detectd) SARS-CoV-2 (PCR) (Not Detectd) Disposition Clinical Impression: Heart failure, CKD (chronic kidney disease) stage 5, GFR less than 15 ml/min, Pulmonary edema, Sleep apnea, Hypoxemia, Hyperglycemia due to type 2 diabetes mellitus Disposition: ADMITTED IP TO THIS [facility] Condition: Poor Instructions (If sedation given, give patient instructions): Heart Failure (ER), Chronic Kidney Disease (ED), Uvulopalatopharyngoplasty (DC), Diabetic Hyperglycemia (ED) Is patient prescribed a controlled substance at d/c from ED?: No Referrals: Julio Cesar Arora MD [Primary Care Provider] - 1-2 days Time of Disposition: 13:10
[2024-08-12 08:16] LABS: Basophils % (A) 0 %; Eosinophils # (A) 0.2 k/uL (0-0.7); Eosinophils % (A) 2 %; HCT 37.5 % (34.0-46.0); Hypochromasia Marked; Lymphocytes # (A) 0.9 k/uL (1.0-4.8); Lymphocytes % (A) 9 %; MCH 28.4 pg (25.0-35.0); MCHC 29.2 g/dL (31.0-37.0); MCV 97.2 fL (80.0-100.0); Monocytes # (A) 0.6 k/uL (0-1.0); Monocytes % (A) 6 %; Neutrophils % (A) 80 %; Platelet Count 299 k/uL (150-450); RBC 3.86 m/uL (3.80-5.40); RDW 15.5 % (11.5-15.5)
[2024-08-12 08:35] LABS: ALT 23 U/L (4-34); AST 25 U/L (14-36); African American GFR (CKD) 16 (>60 ml/min/1.73 sqM); Albumin 3.1 g/dL (3.5-5.0); Alkaline Phosphatase 103 U/L (38-126); Anion Gap 7 mmol/L; Blood Urea Nitrogen 61 mg/dL (7-17); Calcium 8.5 mg/dL (8.4-10.2); Carbon Dioxide 25 mmol/L (22-30); Chloride 111 mmol/L (98-107); Glucose 215 mg/dL (74-99); Magnesium 2.2 mg/dL (1.6-2.3); Non-African American GFR(CKD) 14 (>60 ml/min/1.73 sqM); Potassium 5.1 mmol/L (3.5-5.1); Sodium 143 mmol/L (137-145); Total Bilirubin 0.4 mg/dL (0.2-1.3)
--- NOTE | 2024-08-12 09:10 | XR ---
EXAMINATION TYPE: XR chest 2V DATE OF EXAM: 08/12/2024 COMPARISON: None HISTORY: 59 year-old female shortness of breath, dyspnea TECHNIQUE: AP and lateral views FINDINGS: Portable exam further limited by large patient body habitus and underpenetration. Suspect moderate ca rdiomegaly. There is diffuse interstitial and hazy opacity throughout the lungs. No sizable pleural e ffusion on the lateral view. IMPRESSION: Very limited portable exam due to large patient body habitus and underpenetration. Suspect cardiomega ly and diffuse bilateral lung opacities. Considerations include CHF with pulmonary edema. However, no sizable pleural effusion is identified. [facility], , 08/12/2024 9:07 AM
[2024-08-12] MEDS: FUROSEMIDE 10 MG/ML 4 ML VIAL IV STA (10:32)
[2024-08-12 12:03] LABS: ABG HCO3 25 mmol/L (21-25); ABG Oxygen Saturation 94.9 % (94-97); ABG PCO2 68 mmHg (35-45); ABG PO2 77 mmHg (83-108); ABG TCO2 27 mmol/L (19-24); Allen Test Performed? Yes
[2024-08-12 12:11] LABS: ABG PH 7.17 (7.35-7.45)
[2024-08-12] MEDS: FUROSEMIDE 100 MG in SODIUM CHLORIDE 0.9% 90 ML IV SCH (13:41)
[2024-08-12 13:50] LABS: VBG PH 7.22 (7.31-7.41)
[2024-08-12] MEDS ORDERED: hydrALAZINE HCL 20 MG/ML 1 ML VIAL IVP PRN (14:25)
[2024-08-12] MEDS ORDERED: DEXTROSE 50% SYRINGE 50 ML IVP PRN ×2 (14:27)
[2024-08-12 14:52] LABS: Glucose,Whole Blood 138 mg/dL (70-110)
[2024-08-12] MEDS: IPRATROPIUM-ALBUTEROL 3 ML NEB INHALATION SCH (15:35)
[2024-08-12] MEDS: HEPARIN SODIUM,PORCINE 5,000 UNIT/ML 1 ML VIAL SQ SCH (15:52)
[2024-08-12 15:57] LABS: ABG Base Excess -3.4 mmol/L; ABG HCO3 25 mmol/L (21-25); ABG Oxygen Saturation 99.1 % (94-97); ABG PCO2 61 mmHg (35-45); ABG PH 7.23 (7.35-7.45); ABG PO2 130 mmHg (83-108); ABG TCO2 27 mmol/L (19-24); Allen Test Performed? Yes
[2024-08-12 17:27] LABS: Glucose,Whole Blood 116 mg/dL (70-110)
[2024-08-12] MEDS: hydrALAZINE HCL 50 MG TAB PO SCH (17:50)
[2024-08-12] MEDS: INSULIN ASPART (NovoLOG) 100 UNIT/ML VIAL SQ SCH (17:50)
[2024-08-12] MEDS: FUROSEMIDE 10 MG/ML 4 ML VIAL IV SCH (18:26)
[2024-08-12 20:45] LABS: Glucose,Whole Blood 113 mg/dL (70-110)
[2024-08-12] MEDS: METOPROLOL TARTRATE 50 MG TAB PO SCH (20:46)
--- NOTE | 2024-08-13 00:44 | HP ---
HISTORY AND PHYSICAL CHIEF COMPLAINT: Shortness of breath. HISTORY OF PRESENT ILLNESS: This is a 59-year-old woman with a past medical history of multiple medical problems including diabetes mellitus type 2, history of peripheral neuropathy, being followed by Dr. 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 The patient also had a tongue tumor apparently and the patient was taken to [facility] for further evaluation and treatment. The patient had acute severe respiratory failure. The chest x-ray was reported as showing possible CHF, which I reviewed personally. The patient is started on BiPAP and the patient is being admitted for further evaluation and treatment. There is no history of any fever, rigors, or chills at this time. COVID-19 is negative. BNP is 2180. A 2D echo with Doppler which was done in 2020 showed ejection fraction of 60% to 65%, and multiple other mild abnormalities. The patient also had cellulitis of the legs also. PAST MEDICAL HISTORY: Reviewed include diabetes mellitus. Rest of the history and rest of the chart is also noted. HOME MEDICATIONS: Reviewed include glipizide. Dose and rest of medications noted. ALLERGIES: Penicillin. FAMILY HISTORY: Could not be taken because the patient is on BiPAP. SOCIAL HISTORY: Could not be taken because the patient is on BiPAP. REVIEW OF SYSTEMS: Could not be taken because the patient is on BiPAP. PHYSICAL EXAMINATION: VITAL SIGNS: Pulse 82, blood pressure 170/84, respirations 15. HEENT: Conjunctivae normal. NECK: No JVD. CARDIOVASCULAR: S1,S2. RESPIRATIONS: Breathing efforts are markedly increased. The patient's BiPAP settings are 22 and 5. ABDOMEN: Soft, obese, nontender. LEGS: Bilateral leg edema. Cellulitis on the right leg also present. NERVOUS SYSTEM: Nonfocal. LABORATORY DATA: At this time shows WBC 10, hemoglobin 11, and ABGs noted. ASSESSMENT: 1. Congestive heart failure acute exacerbation with acute hypoxic hypercarbic respiratory failure. 2. Possible sleep apnea. 3. Acute on chronic kidney failure. 4. Diabetes mellitus, type 2. 5. Cellulitis of both legs, right more than the left. 6. History of tongue tumor. 7. Morbid obesity with BMI of 43.9. RECOMMENDATIONS AND DISCUSSION: This is a 59-year-old woman with a past medical history of complex medical issues, we will monitor the patient closely. Recommend initial Lasix. Cardiology, Pulmonology consultations, empiric antibiotics. Otherwise, we will continue to monitor. Home medications will be continued once they are confirmed. Hydralazine p.r.n. 2D echo with Doppler, BNP, complete cardiac workup. Guarded prognosis because of multiple complex medical issues. I would also recommend consultation with Nephrology because of the recent worsening of the kidney failure also. UA will be ordered. Prognosis guarded. Further recommendations to follow. COVID-19 is negative. MMODL / IJN: [id number] /
[2024-08-13] MEDS: DEXAMETHASONE SOD PHOSPHATE 10 MG/ML 1 ML VIAL IVP STA (01:12)
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
[2024-08-13 01:33] LABS: ABG Base Excess -1.8 mmol/L; ABG HCO3 27 mmol/L (21-25); ABG Oxygen Saturation 90.6 % (94-97); ABG PCO2 65 mmHg (35-45); ABG PH 7.23 (7.35-7.45); ABG TCO2 29 mmol/L (19-24); Allen Test Performed? Yes
[2024-08-13 01:51] LABS: ABG PO2 59 mmHg (83-108)
[2024-08-13 06:04] LABS: Glucose,Whole Blood 201 mg/dL (70-110)
[2024-08-13 06:27] LABS: Basophils % (A) 0 %; Eosinophils # (A) 0.1 k/uL (0-0.7); Eosinophils % (A) 1 %; HCT 37.2 % (34.0-46.0); Hypochromasia Marked; Lymphocytes # (A) 0.3 k/uL (1.0-4.8); Lymphocytes % (A) 3 %; MCH 29.2 pg (25.0-35.0); MCHC 29.5 g/dL (31.0-37.0); MCV 98.8 fL (80.0-100.0); Macrocytosis Slight; Mean Platelet Volume 6.7; Monocytes # (A) 0.3 k/uL (0-1.0); Monocytes % (A) 3 %; Neutrophils # (A) 9.2 k/uL (1.3-7.7); Neutrophils % (A) 93 %; Platelet Count 331 k/uL (150-450); RBC 3.76 m/uL (3.80-5.40); RDW 15.3 % (11.5-15.5)
[2024-08-13 07:30] LABS: ALT 20 U/L (4-34); AST 23 U/L (14-36); African American GFR (CKD) 14 (>60 ml/min/1.73 sqM); Alkaline Phosphatase 101 U/L (38-126); Anion Gap 5 mmol/L; Blood Urea Nitrogen 65 mg/dL (7-17); Calcium 8.3 mg/dL (8.4-10.2); Carbon Dioxide 24 mmol/L (22-30); Chloride 111 mmol/L (98-107); Glucose 232 mg/dL (74-99); Non-African American GFR(CKD) 12 (>60 ml/min/1.73 sqM); Sodium 140 mmol/L (137-145); Total Bilirubin 0.4 mg/dL (0.2-1.3); Total Protein 5.9 g/dL (6.3-8.2)
[2024-08-13] MEDS: amLODIPine 10 MG TAB PO SCH (08:36)
[2024-08-13] MEDS: SODIUM BICARBONATE TAB 650 MG TAB PO SCH (08:36)
--- NOTE | 2024-08-13 09:33 | XR ---
EXAMINATION TYPE: XR chest 1V portable DATE OF EXAM: 08/13/2024 Comparison: 08/12/2024 Clinical History: 59-year-old female CHF Findings: The heart is moderately enlarged with diffuse interstitial and patchy opacities. A portable exam is s ignificantly limited by large patient body habitus. Impression: Portable exam further limited by very large body habitus. Cardiomegaly and diffuse interstitial and p atchy opacities persist. [facility], , 08/13/2024 9:31 AM
--- NOTE | 2024-08-13 10:28 | P.NPCON ---
History of Present Illness - Reason for Consult acute renal failure, chronic renal failure - History of Present Illness Reason for consultation: Acute kidney injury on chronic kidney disease History of present illness: Patient is a 59-year-old female seen in renal consultation for acute kidney injury on chronic kidney disease. Patient has chronic kidney disease stage IV with creatinine 3.03 in May 2024 and 3.62 in July 2024. Creatinine today is 3.95. Patient came to the hospital due to feeling very sleepy. Patient states she was unable to drive and was sleeping for several hours at a time even during the day. She also admits to being short of breath which has been progressively getting worse. Patient states she was not taking any of her medications for several months but started taking them about a month ago. She denies use of nonsteroidals. Denies family history of renal disease. She does have longstanding history of diabetes. Denies history of coronary artery disease. No fever or chills. She is on 2 L nasal cannula. Has a Ortiz catheter currently. Nonoliguric. Vital signs are stable. General: No acute distress. HEENT: Head exam is unremarkable. On nasal cannula. LUNGS: No audible rhonchi or wheezes. HEART: Rate and Rhythm are regular. ABDOMEN: Obese, nontender. EXTREMITITES: 1+ edema. 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 History of Any Multi-Drug Resistant Organisms: None Reported Past Surgical History: Tonsillectomy Additional Past Surgical History / Comment(s): Peripheral access/procedure to improve blood flow thru tongue x3 Past Anesthesia/Blood Transfusion Reactions: No Reported Reaction Past Psychological History: No Psychological Hx Reported Additional Psychological History / Comment(s): Pt resides with her boyfriend, 4 dogs and 3 cats. She is independent. She has a glucometer. Smoking Status: Never smoker Past Alcohol Use History: Rare Past Drug Use History: Marijuana - Past Family History Father Family Medical History: Cancer Additional Family Medical History / Comment(s): Father had throat cancer. He is . He was a smoker. Mother Family Medical History: Cancer Additional Family Medical History / Comment(s): Mother had breast and lung cancer. She was a smoker. She is . Medications and Allergies Home Medications Medication Instructions Recorded Confirmed Type amLODIPine [Norvasc] 10 mg PO DAILY 12/15/20 08/12/24 History Atorvastatin Calcium [Lipitor] 40 mg PO DAILY 08/12/24 08/12/24 History Metoprolol Tartrate [Lopressor] 50 mg PO BID 08/12/24 08/12/24 History Sodium Bicarbonate Tab 650 mg PO DAILY 08/12/24 08/12/24 History glipiZIDE [Glucotrol] 2.5 mg PO AC-BRKFST 08/12/24 08/12/24 History hydrALAZINE HCL 50 mg PO TID 08/12/24 08/12/24 History lisinopriL [Zestril] 2.5 mg PO DAILY 08/12/24 08/12/24 History Allergies Allergy/AdvReac Type Severity Reaction Status Date / Time Penicillins Allergy Unknown Unknown Verified 08/12/24 13:42 Childhood Physical Exam Vitals: Vital Signs Temp Pulse Pulse Resp BP BP Pulse Ox 08/13/24 08:18 80 08/13/24 08:05 84 08/13/24 07:47 98.1 F 89 20 159/77 93 L 08/13/24 04:19 08/13/24 04:00 98.4 F 90 13 140/60 94 L 08/13/24 00:35 08/13/24 00:00 98.9 F 82 23 138/66 94 L 08/12/24 23:05 08/12/24 20:51 19 95 08/12/24 20:17 97.2 F L 85 24 135/60 95 08/12/24 20:15 97.2 F L 85 20 135/60 95 08/12/24 19:50 97.8 F 92 9 L 142/65 97 08/12/24 19:23 08/12/24 18:30 97.9 F 88 17 139/72 99 08/12/24 17:43 86 L 08/12/24 17:30 124/78 90 L 08/12/24 17:05 82 19 144/133 96 08/12/24 16:44 23 L 08/12/24 16:38 58 L 08/12/24 16:34 87 L 08/12/24 16:30 82 15 152/82 91 L 08/12/24 16:09 08/12/24 16:07 89 08/12/24 15:48 75 15 138/76 96 08/12/24 15:37 83 08/12/24 15:36 08/12/24 15:21 67 13 140/71 94 L 08/12/24 14:19 86 17 150/83 97 08/12/24 12:31 82 15 172/85 97 08/12/24 12:12 08/12/24 11:36 82 17 140/79 95 08/12/24 10:39 97.6 F 78 16 145/76 98 FiO2 08/13/24 08:18 08/13/24 08:05 08/13/24 07:47 08/13/24 04:19 35 08/13/24 04:00 08/13/24 00:35 35 08/13/24 00:00 08/12/24 23:05 40 08/12/24 20:51 08/12/24 20:17 08/12/24 20:15 08/12/24 19:50 08/12/24 19:23 40 08/12/24 18:30 08/12/24 17:43 08/12/24 17:30 08/12/24 17:05 08/12/24 16:44 08/12/24 16:38 08/12/24 16:34 08/12/24 16:30 08/12/24 16:09 40 08/12/24 16:07 08/12/24 15:48 08/12/24 15:37 08/12/24 15:36 40 08/12/24 15:21 08/12/24 14:19 08/12/24 12:31 08/12/24 12:12 40 08/12/24 11:36 08/12/24 10:39 Intake and Output 08/12/24 08/13/24 08/13/24 22:59 06:59 14:59 Intake Total 360 Output Total 1875 600 Balance -1875 -600 360 Intake: Oral 360 Output: Urine 1875 600 Other: Voiding Method Indwelling Catheter # Bowel Movements 1 Weight 127.006 kg 141 kg Results - Lab Results Most recent lab results ABG pH 7.23 (7.35-7.45) L 08/13/24 01:30 ABG pCO2 65 mmHg (35-45) H 08/13/24 01:30 ABG pO2 59 mmHg (83-108) L* 08/13/24 01:30 ABG HCO3 27 mmol/L (21-25) H 08/13/24 01:30 ABG O2 Saturation 90.6 % (94-97) L 08/13/24 01:30 Calcium 8.3 mg/dL (8.4-10.2) L 08/13/24 06:05 Magnesium 2.2 mg/dL (1.6-2.3) 08/12/24 07:59 08/13/24 06:05 08/13/24 06:05 Assessment and Plan Plan: Assessment: 1. Acute kidney injury secondary to ATN secondary to cardiorenal syndrome. Creatinine 3.95 today. Has Ortiz catheter. 2. Chronic kidney disease stage IV secondary to diabetic kidney disease. 3. Volume overload. 4. Diabetes mellitus. 5. Hypertension with chronic kidney disease. 6. Hyperkalemia secondary to acute kidney injury and underlying RTA. Plan: Diuretics changed from IV to oral this morning. Check renal ultrasound. Follow-up echocardiogram. Renal diet. Lokelma 10 g once now. Repeat potassium level this afternoon. Renal replacement therapy has been discussed with the patient. She has been referred to vascular surgery for vein mapping and access placement outpatient. Thank you for the consultation. I will continue to follow the patient with you during her hospital stay.
[2024-08-13 11:49] LABS: Glucose,Whole Blood 245 mg/dL (70-110)
[2024-08-13] MEDS: SODIUM ZIRCONIUM CYCLOSILICATE 10 GM PACKET PO SCH (11:55)
--- NOTE | 2024-08-13 13:42 | P.CRDCN ---
History of Present Illness Consult date: 08/13/24 History of present illness: - . HPI: [This is a morbidly obese lady with a history of documented sleep apnea syndrome morbid obesity chronic kidney disease the diabetes who came into the hospital after she was pulled over by the police and she was driving erratically and apparently felt sleepy and was disoriented. She was found to be in hypercapnic hypoxic respiratory failure, placed on the BiPAP with modest improvement. She is now responding to questions answering appropriately. She is known to have sleep apnea was advised a CPAP before but has not been using s he has some tongue lesion that seems to contribute to the obstructive sleep apnea issues. However she may have some heart failure as well diastolic in nature. At the time of my evaluation she seems to be better oriented responding to questions denies a chest pain. Labs reveal hypercapnia modest elevation of proBNP 2180. She has chronic lower extremity edema venous stasis changes. Prognosis remains guarded]. RELEVANT PAST MEDICAL HISTORY: [Chronic obstructive sleep apnea, a lesion on the tongue which seems to contribute to obstructive sleep apnea worsening, morbid obesity chronic kidney disease with diabetes and previous known diagnosis of sleep apnea but she has not been using CPAP]. MEDICATIONS: [Medications include Glucotrol atorvastatin lisinopril sodium bicarb hydralazine amlodipine and metoprolol] ALLERGIES: [Penicillin]. REVIEW OF SYSTEMS: [Remarkable for sleepiness daytime, generalized aches and pains no chest pains shortness of breath persistent all the time]. PHYSICIAL EXAM: [Vitals are stable JVD is evident S1-S2 heard distantly short systolic murmur lungs reveal diminished air entry morbidly obese abdomen lower extremities reveal bilateral significant edema with diminished pulses]. IMPRESSION: 1. [Hypercapnic hypoxic respiratory failure]. 2. [Obstructive sleep apnea]. 3. [Chronic kidney disease]. 4. [Systolic heart failure]. 5. []. RECOMMENDATIONS: [Switch her from IV to oral Lasix obtain echocardiogram continue management as per pulmonary prognosis remains quite poor]. 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 History of Any Multi-Drug Resistant Organisms: None Reported Past Surgical History: Tonsillectomy Additional Past Surgical History / Comment(s): Peripheral access/procedure to improve blood flow thru tongue x3 Past Anesthesia/Blood Transfusion Reactions: No Reported Reaction Past Psychological History: No Psychological Hx Reported Additional Psychological History / Comment(s): Pt resides with her boyfriend, 4 dogs and 3 cats. She is independent. She has a glucometer. Smoking Status: Never smoker Past Alcohol Use History: Rare Past Drug Use History: Marijuana - Past Family History Father Family Medical History: Cancer Additional Family Medical History / Comment(s): Father had throat cancer. He is . He was a smoker. Mother Family Medical History: Cancer Additional Family Medical History / Comment(s): Mother had breast and lung cancer. She was a smoker. She is . Medications and Allergies Home Medications Medication Instructions Recorded Confirmed Type amLODIPine [Norvasc] 10 mg PO DAILY 12/15/20 08/12/24 History Atorvastatin Calcium [Lipitor] 40 mg PO DAILY 08/12/24 08/12/24 History Metoprolol Tartrate [Lopressor] 50 mg PO BID 08/12/24 08/12/24 History Sodium Bicarbonate Tab 650 mg PO DAILY 08/12/24 08/12/24 History glipiZIDE [Glucotrol] 2.5 mg PO AC-BRKFST 08/12/24 08/12/24 History hydrALAZINE HCL 50 mg PO TID 08/12/24 08/12/24 History lisinopriL [Zestril] 2.5 mg PO DAILY 08/12/24 08/12/24 History Allergies Allergy/AdvReac Type Severity Reaction Status Date / Time Penicillins Allergy Unknown Unknown Verified 08/12/24 13:42 Childhood Physical Exam Vitals: Vital Signs Temp Pulse Pulse Resp BP BP Pulse Ox 08/13/24 11:50 84 08/13/24 11:33 80 08/13/24 11:26 98.2 F 76 20 130/73 97 08/13/24 08:18 80 08/13/24 08:05 84 08/13/24 07:47 98.1 F 89 20 159/77 93 L 08/13/24 04:19 08/13/24 04:00 98.4 F 90 13 140/60 94 L 08/13/24 00:35 08/13/24 00:00 98.9 F 82 23 138/66 94 L 08/12/24 23:05 08/12/24 20:51 19 95 08/12/24 20:17 97.2 F L 85 24 135/60 95 08/12/24 20:15 97.2 F L 85 20 135/60 95 08/12/24 19:50 97.8 F 92 9 L 142/65 97 08/12/24 19:23 08/12/24 18:30 97.9 F 88 17 139/72 99 08/12/24 17:43 86 L 08/12/24 17:30 124/78 90 L 08/12/24 17:05 82 19 144/133 96 08/12/24 16:44 23 L 08/12/24 16:38 58 L 08/12/24 16:34 87 L 08/12/24 16:30 82 15 152/82 91 L 08/12/24 16:09 08/12/24 16:07 89 08/12/24 15:48 75 15 138/76 96 08/12/24 15:37 83 08/12/24 15:36 08/12/24 15:21 67 13 140/71 94 L 08/12/24 14:19 86 17 150/83 97 FiO2 08/13/24 11:50 08/13/24 11:33 40 08/13/24 11:26 08/13/24 08:18 08/13/24 08:05 08/13/24 07:47 08/13/24 04:19 35 08/13/24 04:00 08/13/24 00:35 35 08/13/24 00:00 08/12/24 23:05 40 08/12/24 20:51 08/12/24 20:17 08/12/24 20:15 08/12/24 19:50 08/12/24 19:23 40 08/12/24 18:30 08/12/24 17:43 08/12/24 17:30 08/12/24 17:05 08/12/24 16:44 08/12/24 16:38 08/12/24 16:34 08/12/24 16:30 08/12/24 16:09 40 08/12/24 16:07 08/12/24 15:48 08/12/24 15:37 08/12/24 15:36 40 08/12/24 15:21 08/12/24 14:19 Intake and Output 08/12/24 08/13/24 08/13/24 22:59 06:59 14:59 Intake Total 360 Output Total 1875 600 Balance -1875 -600 360 Intake: Oral 360 Output: Urine 1875 600 Other: Voiding Method Indwelling Catheter Indwelling Catheter # Bowel Movements 1 Weight 127.006 kg 141 kg Results 08/13/24 06:05 08/13/24 06:05 Cardiac Enzymes 08/13/24 Range/Units 06:05 AST 23 (14-36) U/L CBC 08/13/24 Range/Units 06:05 WBC 10.0 (3.8-10.6) k/uL RBC 3.76 L (3.80-5.40) m/uL Hgb 11.0 L (11.4-16.0) gm/dL Hct 37.2 (34.0-46.0) % Plt Count 331 (150-450) k/uL Comprehensive Metabolic Panel 08/13/24 Range/Units 06:05 Sodium 140 (137-145) mmol/L Potassium 6.0 H (3.5-5.1) mmol/L Chloride 111 H (98-107) mmol/L Carbon Dioxide 24 (22-30) mmol/L BUN 65 H (7-17) mg/dL Creatinine 3.95 H (0.52-1.04) mg/dL Glucose 232 H (74-99) mg/dL Calcium 8.3 L (8.4-10.2) mg/dL AST 23 (14-36) U/L ALT 20 (4-34) U/L Alkaline Phosphatase 101 (38-126) U/L Total Protein 5.9 L (6.3-8.2) g/dL Albumin 3.0 L (3.5-5.0) g/dL Current Medications Generic Name Dose Route Start Last Admin Trade Name Freq PRN Reason Stop Dose Admin Albuterol/Ipratropium 3 ml 08/12/24 16:00 08/13/24 11:33 Ipratropium-Albuterol 3 Ml Neb INHALATION 3 ml RT-QID ANNMARIE Administration Amlodipine Besylate 10 mg 08/13/24 09:00 08/13/24 08:36 Amlodipine 10 Mg Tab PO 10 mg DAILY ANNMARIE Administration Dextrose/Water 50 ml 08/12/24 14:27 Dextrose 50% Syringe 50 Ml IVP PER PROTOCOL PRN Hypoglycemia Protocol Dextrose/Water 25 ml 08/12/24 14:27 Dextrose 50% Syringe 50 Ml IVP PER PROTOCOL PRN Hypoglycemia Protocol Furosemide 60 mg 08/13/24 16:00 Furosemide 20 Mg Tab PO BID@0900,1600 REPLACED BY [facility] Heparin Sodium (Porcine) 5,000 unit 08/12/24 14:30 08/13/24 08:36 Heparin Sodium,Porcine 5,000 Unit/Ml 1 Ml Vial SQ 5,000 unit Q12HR ANNMARIE Administration Hydralazine HCl 10 mg 08/12/24 14:25 Hydralazine Hcl 20 Mg/Ml 1 Ml Vial IVP Q4HR PRN Blood Pressure - High Hydralazine HCl 50 mg 08/12/24 16:00 08/13/24 08:36 Hydralazine Hcl 50 Mg Tab PO 50 mg TID ANNMARIE Administration Insulin Aspart 0 unit 08/12/24 17:30 08/13/24 12:08 Insulin Aspart (Novolog) 100 Unit/Ml Vial SQ 8 unit ACHS ANNMARIE Administration Protocol Metoprolol Tartrate 50 mg 08/12/24 21:00 08/13/24 08:36 Metoprolol Tartrate 50 Mg Tab PO 50 mg BID ANNMARIE Administration Sodium Bicarbonate 650 mg 08/13/24 09:00 08/13/24 08:36 Sodium Bicarbonate Tab 650 Mg Tab PO 650 mg DAILY ANNMARIE Administration Sodium Zirconium Cyclosilicate 10 gm 08/13/24 10:30 08/13/24 11:55 Sodium Zirconium Cyclosilicate 10 Gm Packet PO 08/14/24 09:01 10 gm TID ANNMARIE Administration Intake and Output 08/12/24 08/13/24 08/13/24 22:59 06:59 14:59 Intake Total 360 Output Total 1875 600 Balance -1875 -600 360 Intake: Oral 360 Output: Urine 1875 600 Other: Voiding Method Indwelling Catheter Indwelling Catheter # Bowel Movements 1 Weight 127.006 kg 141 kg 08/13/24 06:05 08/13/24 06:05
--- NOTE | 2024-08-13 15:35 | US ---
EXAMINATION TYPE: US kidneys/renal and bladder DATE OF EXAM: 08/13/2024 COMPARISON: NONE CLINICAL INDICATION: Female, 59 years old with history of MANINDER; TECHNIQUE: Grayscale and color Doppler imaging of the bilateral kidneys and urinary bladder: FINDINGS: [employer] notes: Non diagnostic exam due to morbidly obese patient Right Kidney: not seen due to above limitations Left Kidney: not seen due to above limitations Bladder: not imaged due to above limitations IMPRESSION: Nondiagnostic exam due to patient body habitus. [facility], , 08/13/2024 3:33 PM
[2024-08-13] MEDS: FUROSEMIDE 20 MG TAB PO SCH (16:29)
[2024-08-13 16:36] LABS: Glucose,Whole Blood 256 mg/dL (70-110)
[2024-08-13 20:19] LABS: Glucose,Whole Blood 240 mg/dL (70-110)
--- NOTE | 2024-08-13 23:31 | PN ---
PROGRESS NOTE DATE OF SERVICE: 08/13/2024 SUBJECTIVE: This is a 59-year-old woman who was admitted with CHF acute exacerbation, is still drowsy at this time. The chest x-ray done today compared to the one yesterday still shows significant congestion probably slightly better. PAST MEDICAL HISTORY: Reviewed. CURRENT MEDICATIONS: Reviewed include Lasix. Dose and rest of medications reviewed. PHYSICAL EXAMINATION: VITAL SIGNS: Pulse is 76, blood pressure 130/76, respirations 20. HEENT: Conjunctivae normal. NECK: No JVD. CARDIOVASCULAR: S1, S2. RESPIRATIONS: Breath sounds diminished at the bases. A few scattered rhonchi. ABDOMEN: Soft. NERVOUS SYSTEM: Nonfocal. LABORATORY DATA: PH 7.23, improved. Creatinine is 3.95, slightly worsened. ASSESSMENT: 1. Congestive heart failure acute exacerbation with acute hypoxic hypercarbic respiratory failure. 2. Possible sleep apnea. 3. Acute on chronic kidney failure. 4. Diabetes mellitus, type 2. 5. Cellulitis of both legs, right more than the left. 6. History of tongue tumor. 7. Morbid obesity. BMI of 43.9. RECOMMENDATIONS: Recommend to continue current medications and continue symptomatic treatment. Continue with bronchodilators. Continue steroids. Continue with rest of medications. Follow up with Cardiology and as well as Pulmonology. Guarded prognosis because of multiple complex medical issues. Further recommendations to follow. See orders for further details. MMODL / IJN: [id number] /
[2024-08-14 06:17] LABS: Glucose,Whole Blood 158 mg/dL (70-110)
[2024-08-14 06:31] LABS: Basophils % (A) 0 %; Eosinophils # (A) 0.1 k/uL (0-0.7); Eosinophils % (A) 2 %; HCT 34.4 % (34.0-46.0); HGB 10.3 gm/dL (11.4-16.0); Hypochromasia Marked; Lymphocytes % (A) 10 %; MCH 28.8 pg (25.0-35.0); MCV 96.2 fL (80.0-100.0); Mean Platelet Volume 6.7; Monocytes # (A) 0.5 k/uL (0-1.0); Monocytes % (A) 5 %; Neutrophils # (A) 7.7 k/uL (1.3-7.7); Neutrophils % (A) 81 %; Platelet Count 341 k/uL (150-450); RBC 3.58 m/uL (3.80-5.40); RDW 15.5 % (11.5-15.5); WBC 9.6 k/uL (3.8-10.6)
[2024-08-14 06:41] LABS: ALT 17 U/L (4-34); AST 19 U/L (14-36); African American GFR (CKD) 11 (>60 ml/min/1.73 sqM); Alkaline Phosphatase 98 U/L (38-126); Anion Gap 6 mmol/L; Blood Urea Nitrogen 75 mg/dL (7-17); Calcium 8.1 mg/dL (8.4-10.2); Carbon Dioxide 24 mmol/L (22-30); Chloride 109 mmol/L (98-107); Glucose 146 mg/dL (74-99); Magnesium 2.2 mg/dL (1.6-2.3); Non-African American GFR(CKD) 9 (>60 ml/min/1.73 sqM); Potassium 3.7 mmol/L (3.5-5.1); Sodium 139 mmol/L (137-145); Total Bilirubin 0.4 mg/dL (0.2-1.3); Total Protein 5.7 g/dL (6.3-8.2)
[2024-08-14] MEDS: SODIUM CHLORIDE 0.9% 1,000 ML IV SCH (09:41)
--- NOTE | 2024-08-14 10:23 | P.PN ---
Subjective Patient is seen in follow-up for acute kidney injury on chronic kidney disease. Renal function worsening. On oral Lasix. Nonoliguric. Potassium normal. Denies chest pain or shortness of breath. On room air. Vital signs are stable. General: No acute distress. HEENT: Head exam is unremarkable. LUNGS: No audible rhonchi or wheezes. HEART: Rate and Rhythm are regular. ABDOMEN: Obese, nontender. EXTREMITITES: No edema. Objective - Vital Signs Vital signs: Vital Signs Temp 97.6 F 08/14/24 08:36 Pulse 89 08/14/24 08:36 Resp 20 08/14/24 08:36 BP 122/65 08/14/24 08:36 Pulse Ox 93 L 08/14/24 08:36 FiO2 40 08/13/24 21:03 Intake & Output 08/13/24 08/14/24 08/14/24 18:59 06:59 18:59 Intake Total 1940 0 Output Total 1500 825 Balance 440 -825 0 Weight 142 kg Intake: Oral 1940 0 Output: Urine 1500 825 Uretheral (Ortiz) 1500 Other: Voiding Method Indwelling Catheter Indwelling Catheter Indwelling Catheter # Bowel Movements 2 1 - Labs CBC & Chem 7: 08/14/24 05:52 08/14/24 05:52 Labs: Abnormal Lab Results - Last 24 Hours (Table) 08/13/24 08/13/24 08/13/24 Range/Units 11:48 16:32 20:16 RBC (3.80-5.40) m/uL Hgb (11.4-16.0) gm/dL MCHC (31.0-37.0) g/dL Chloride (98-107) mmol/L BUN (7-17) mg/dL Creatinine (0.52-1.04) mg/dL Glucose (74-99) mg/dL POC Glucose (mg/dL) 245 H 256 H 240 H (70-110) mg/dL Calcium (8.4-10.2) mg/dL Total Protein (6.3-8.2) g/dL Albumin (3.5-5.0) g/dL 08/14/24 08/14/24 08/14/24 Range/Units 05:52 05:52 06:15 RBC 3.58 L (3.80-5.40) m/uL Hgb 10.3 L (11.4-16.0) gm/dL MCHC 30.0 L (31.0-37.0) g/dL Chloride 109 H (98-107) mmol/L BUN 75 H (7-17) mg/dL Creatinine 4.81 H (0.52-1.04) mg/dL Glucose 146 H (74-99) mg/dL POC Glucose (mg/dL) 158 H (70-110) mg/dL Calcium 8.1 L (8.4-10.2) mg/dL Total Protein 5.7 L (6.3-8.2) g/dL Albumin 3.0 L (3.5-5.0) g/dL Assessment and Plan Plan: Assessment: 1. Acute kidney injury secondary to ATN secondary to cardiorenal syndrome. Renal function worse. Creatinine 4.81 today. Nonoliguric. Has Ortiz catheter. 2. Chronic kidney disease stage IV secondary to diabetic kidney disease. 3. Volume overload. Improved with diuresis. 4. Diabetes mellitus. 5. Hypertension with chronic kidney disease. Controlled. 6. Hyperkalemia secondary to acute kidney injury and underlying RTA. Plan: Stop diuretics. Start gentle IV hydration with normal saline at 50 cc an hour. Repeat chest x-ray. Follow-up echocardiogram. Renal diet. Renal replacement therapy has been discussed with the patient. No urgency at this time. Continue to assess on daily basis. She has been referred to vascular surgery for vein mapping and access placement outpatient.
[2024-08-14 11:47] LABS: Glucose,Whole Blood 214 mg/dL (70-110)
--- NOTE | 2024-08-14 11:50 | P.PN ---
Subjective Progress Note Date: 08/14/24 HPI: [This is a morbidly obese lady with a history of documented sleep apnea syndrome morbid obesity chronic kidney disease the diabetes who came into the hospital after she was pulled over by the police and she was driving erratically and apparently felt sleepy and was disoriented. She was found to be in hypercapnic hypoxic respiratory failure, placed on the BiPAP with modest improvement. She is now responding to questions answering appropriately. She is known to have sleep apnea was advised a CPAP before but has not been using she has some tongue lesion that seems to contribute to the obstructive sleep apnea issues. Because of the tongue lesion, patient has been refusing to wear the CPAP. We have asked nursing to contact respiratory to see if there is another mass that she can tolerate. Patient had episodes of bradycardia and also V. tach of 16 beats last evening. Believe these are related to obstructive sleep apnea and patient encouraged to utilize the CPAP. Otherwise, patient has been in a sinus rhythm. Heart rate is in the 70s, blood pressure 124/73. Laboratory studies WBC 9.6, hemoglobin 10.3, BUN 75 and creatinine 4.81. Nephrology is following and diuretics were discontinued this morning and she was started on IV hydration. PHYSICIAL EXAM: [Vitals are stable JVD is evident S1-S2 heard distantly short systolic murmur lungs reveal diminished air entry morbidly obese abdomen lower extremities reveal bilateral significant edema with diminished pulses]. IMPRESSION: 1. [Hypercapnic hypoxic respiratory failure]. 2. [Obstructive sleep apnea]. 3. [Acute kidney injury and chronic kidney disease]. 4. [Systolic heart failure]. 5. [Sinus bradycardia. 6. Nonsustained ventricular tachycardia, asymptomatic]. RECOMMENDATIONS: Discontinue IV diuretics per nephrology due to worsening renal function. Pulmonary medicine managing respiratory status, patient encouraged to utilize CPAP prognosis remains quite poor]. Nurse practitioner note has been reviewed, I agree with documented findings and plan of care. Patient was seen and examined. Objective - Vital Signs Vital signs: Vital Signs Temp 97.6 F 08/14/24 08:36 Pulse 89 08/14/24 08:36 Resp 20 08/14/24 08:36 BP 122/65 08/14/24 08:36 Pulse Ox 93 L 08/14/24 08:36 FiO2 40 08/13/24 21:03 Intake & Output 08/13/24 08/14/24 08/14/24 18:59 06:59 18:59 Intake Total 1940 0 Output Total 1500 825 Balance 440 -825 0 Weight 142 kg Intake: Oral 1940 0 Output: Urine 1500 825 Uretheral (Ortiz) 1500 Other: Voiding Method Indwelling Catheter Indwelling Catheter Indwelling Catheter # Bowel Movements 2 1 - Labs CBC & Chem 7: 08/14/24 05:52 08/14/24 05:52 Labs: Abnormal Lab Results - Last 24 Hours (Table) 08/13/24 08/13/24 08/13/24 Range/Units 11:48 16:32 20:16 RBC (3.80-5.40) m/uL Hgb (11.4-16.0) gm/dL MCHC (31.0-37.0) g/dL Chloride (98-107) mmol/L BUN (7-17) mg/dL Creatinine (0.52-1.04) mg/dL Glucose (74-99) mg/dL POC Glucose (mg/dL) 245 H 256 H 240 H (70-110) mg/dL Calcium (8.4-10.2) mg/dL Total Protein (6.3-8.2) g/dL Albumin (3.5-5.0) g/dL 08/14/24 08/14/24 08/14/24 Range/Units 05:52 05:52 06:15 RBC 3.58 L (3.80-5.40) m/uL Hgb 10.3 L (11.4-16.0) gm/dL MCHC 30.0 L (31.0-37.0) g/dL Chloride 109 H (98-107) mmol/L BUN 75 H (7-17) mg/dL Creatinine 4.81 H (0.52-1.04) mg/dL Glucose 146 H (74-99) mg/dL POC Glucose (mg/dL) 158 H (70-110) mg/dL Calcium 8.1 L (8.4-10.2) mg/dL Total Protein 5.7 L (6.3-8.2) g/dL Albumin 3.0 L (3.5-5.0) g/dL
--- NOTE | 2024-08-14 12:05 | CA ---
Transthoracic Echo Report Name: Barbara Sullivan Age: 59 Gender: F : 1965 Exam Date: 08/14/2024 09:24 Exam Location: [facility] Ht (in): 67 Wt (lb): 280 Ordering Physician: Rayne Mejia MD Attending/Referring Phys: Digital Imaging Specialist Martha Mai RDCS Procedure CPT: Indications: chf Cardiac Hx: Technical Quality: Poor Contrast 1: Definity Total Dose (mL): 2 Contrast 2: Total Dose (mL): MEASUREMENTS (Male / Female) Normal Values 2D ECHO LV Diastolic Diameter PLAX 3.9 cm 4.2 - 5.9 / 3.9 - 5.3 cm LV Systolic Diameter PLAX 2.5 cm IVS Diastolic Thickness 1.9 cm 0.6 - 1.0 / 0.6 - 0.9 cm LVPW Diastolic Thickness 1.7 cm 0.6 - 1.0 / 0.6 - 0.9 cm LV Relative Wall Thickness 0.9 LVOT Diameter 1.9 cm LA Volume 58.0 cm??? 18 - 58 / 22 - 52 cm??? LA Volume Index 23.1 cm???/m??? 16 - 28 cm???/m??? M-MODE Aortic Root Diameter MM 3.5 cm LA Systolic Diameter MM 4.3 cm LA Ao Ratio MM 1.2 AV Cusp Separation MM 1.1 cm DOPPLER AV Peak Velocity 187.7 cm/s AV Peak Gradient 14.1 mmHg AV Mean Velocity 142.1 cm/s AV Mean Gradient 8.9 mmHg AV Velocity Time Integral 39.6 cm LVOT Peak Velocity 119.9 cm/s LVOT Peak Gradient 5.8 mmHg LVOT Velocity Time Integral 25.1 cm LVOT Stroke Volume 74.5 cm??? LVOT Stroke Volume Index 31.9 ml/m??? LVOT Cardiac Index 2574.3 cm???/min???m??? AV Area Cont Eq vti 1.9 cm??? AV Area Cont Eq pk 1.9 cm??? MV Area PHT 3.4 cm??? Mitral E Point Velocity 86.0 cm/s Mitral A Point Velocity 101.9 cm/s Mitral E to A Ratio 0.8 MV Deceleration Time 224.0 ms TR Peak Velocity 309.8 cm/s TR Peak Gradient 38.4 mmHg Right Ventricular Systolic Press 43.1 mmHg FINDINGS Left Ventricle Left ventricular ejection fraction is estimated at 55-60 %. Normal left ventricular systolic function with no obvious regional wall motion abnormalities. Severely increased left ventricular wall thickness. Right Ventricle Right ventricle not well visualized. Mild pulmonary hypertension. Right Atrium Mild right atrial dilatation. Left Atrium Mildly increased left atrial volume. Mitral Valve Structurally normal mitral valve. Mild mitral regurgitation. No mitral stenosis. Aortic Valve The aortic valve appears to be heavily calcified, probably bicuspid, the possibility of a calcified vegetation cannot be excluded. There was no significant gradient across the aortic valve or regurgitation. Tricuspid Valve Structurally normal tricuspid valve. Mild tricuspid regurgitation. No tricuspid stenosis. Pulmonic Valve Structurally normal pulmonic valve. Trace pulmonic regurgitation. No pulmonic stenosis. Pericardium No pericardial or pleural effusion. Aorta Normal size aortic root and proximal ascending aorta. CONCLUSIONS Technically difficult study. Definity ECHO contrast used for improved visualization of the endocardial borders (inadequate visualization of two or more contiguous segments). Normal left ventricular Size and systolic function Probable bicuspid aortic valve, cannot exclude a vegetation. If clinically indicated a transesophageal echocardiogram will be helpful Mild mitral and tricuspid regurgitation with mild pulmonary hypertension Previewed by: Dr. Romy Licona MD (Electronically Signed) Final Date: 14 August 2024 12:04
--- NOTE | 2024-08-14 12:11 | P.PN ---
Subjective Progress Note Date: 08/14/24 Principal diagnosis: CHF. Patient is a 59-year-old female with past medical history significant for obstructive sleep apnea, morbid obesity, chronic kidney disease, diabetes melli tus, hypertension, hyperlipidemia. Patient is currently obtunded and unable to provide information for HPI. This is supplemented by ER documentation. Apparently, earlier in the week she was at her primary care provider and was noted to be hypoxic. Yesterday, she was pulled over by the police department, she was swerving and falling asleep while driving. She was noted to be severely hypercapnic on arrival to the ED. Placed on BiPAP. Initial ABG PaO2 77, pCO2 of 68, pH of 7.17. She was left on BiPAP and a follow-up ABG showing some improvement in her hypercapnia with a PaO2 of 130, pCO2 of 161, pH of 7.23. She is currently being evaluated on the cardiac stepdown unit. She remains on BiPAP with settings 15/5 and FiO2 of 40%. She is generating tidal volumes in the mid 300s. Respiratory rate around 20 breaths/min. She does have history of obstructive sleep apnea, and is reportedly noncompliant with her CPAP. Mallampati score 4. She does have a lesion at the base of her dorsal tongue. Reportedly, this is a chronic lesion. She has some audible expiratory stridor. Chest x-ray showing poor penetration due to patient's body habitus. Likely cardiomegaly with diffuse interstitial opacities concerning for CHF and pulmonary edema. No pleural effusions. No pneumothoraces.. Receiving Lasix 40 mg 3 times daily. Does have an indwelling urinary catheter. CBC unremarkable. No leukocytosis. CMP: Sodium 143, potassium 5.1, chloride 111, serum bicarb 25, BUN 61, creatinine 3.36, glucose 215. LFTs unremarkable. Troponin 0.012. NT proBNP 2180. There is some bilateral lower extremity edema with chronic venous stasis changes. Negative for influenza, RSV, COVID. She is afebrile. Respiratory status is labile. Apparently, was up eating sandwiches and communicating earlier and is now obtunded. She continues to have episodes of apnea. I am going to repeat an ABG. Progress note dated August 14, 2024. 59-year-old female seen today in room 381. The patient is on room air. Saturations are 93%. The patient is not receiving any IV fluids. The patient did not wear the BiPAP, and refuses to wear it. Respiratory can discontinue it from the room. Current labs include a white count 9.6, hemoglobin 10.3, hematocrit 34.4, and a normal platelet count. Sodium 139, potassium 3.7, chlorides 109, CO2 24, BUN 75, creatinine 4.81. Glucose is 214. Calcium 8.1. Albumin 3.0. Objective - Vital Signs Vital signs: Vital Signs Temp 98.4 F 08/14/24 11:19 Pulse 76 08/14/24 11:55 Resp 20 08/14/24 11:19 BP 124/73 08/14/24 11:19 Pulse Ox 93 L 08/14/24 11:19 FiO2 40 08/13/24 21:03 Intake & Output 08/13/24 08/14/24 08/14/24 18:59 06:59 18:59 Intake Total 1940 0 Output Total 1500 825 Balance 440 -825 0 Weight 142 kg Intake: Oral 1940 0 Output: Urine 1500 825 Uretheral (Ortiz) 1500 Other: Voiding Method Indwelling Catheter Indwelling Catheter Indwelling Catheter # Bowel Movements 2 1 - Exam No acute distress, oriented 3. Currently on room air. HEENT examination is grossly unremarkable. Mucous membranes are moist. Tongue lesion noted. Neck supple. Full range of motion. No adenopathy thyromegaly or neck vein distention. Cardiovascular examination reveals regular rhythm rate. S1-S2 normal. No S3 or S4. No discernible murmur noted. Lungs reveal minimal scattered rhonchi. No wheezes. No crackles. Breath sounds equal. Saturations are 93%. Abdomen soft bowel sounds are heard. No masses or tenderness. Extremities are intact. No cyanosis or clubbing. Lower extremity edema is noted. Chronic venous stasis changes are also noted. Skin is without rash or lesion. Neurologic examination is brief but nonfocal. - Labs CBC & Chem 7: 08/14/24 05:52 08/14/24 05:52 Labs: Abnormal Lab Results - Last 24 Hours (Table) 08/13/24 08/13/24 08/14/24 Range/Units 16:32 20:16 05:52 RBC (3.80-5.40) m/uL Hgb (11.4-16.0) gm/dL MCHC (31.0-37.0) g/dL Chloride 109 H (98-107) mmol/L BUN 75 H (7-17) mg/dL Creatinine 4.81 H (0.52-1.04) mg/dL Glucose 146 H (74-99) mg/dL POC Glucose (mg/dL) 256 H 240 H (70-110) mg/dL Calcium 8.1 L (8.4-10.2) mg/dL Total Protein 5.7 L (6.3-8.2) g/dL Albumin 3.0 L (3.5-5.0) g/dL 08/14/24 08/14/24 08/14/24 Range/Units 05:52 06:15 11:45 RBC 3.58 L (3.80-5.40) m/uL Hgb 10.3 L (11.4-16.0) gm/dL MCHC 30.0 L (31.0-37.0) g/dL Chloride (98-107) mmol/L BUN (7-17) mg/dL Creatinine (0.52-1.04) mg/dL Glucose (74-99) mg/dL POC Glucose (mg/dL) 158 H 214 H (70-110) mg/dL Calcium (8.4-10.2) mg/dL Total Protein (6.3-8.2) g/dL Albumin (3.5-5.0) g/dL Assessment and Plan Assessment: Acute hypoxemic and hypercapnic respiratory failure, currently on nasal O2. BiPAP refused. Suspect exacerbation of congestive heart failure. Tongue lesion. Obstructive sleep apnea, reportedly noncompliant with home CPAP. Morbid obesity, with a BMI of 43.9 kg/m. Acute on chronic kidney disease. Diabetes mellitus, type II. Hypertension. History of hyperlipidemia. Plan: Plan dated August 14, 2024. The patient refused the BiPAP. It can be discontinued from the room. The patient did not wear it last night. The patient is on room air. Saturations are 93%. Labs, x-rays, and all medications are reviewed. The patient's overall prognosis remains guarded. We will continue to follow the patient, and make recommendations along the way. Time with Patient: Less than 30
--- NOTE | 2024-08-14 15:31 | XR ---
EXAMINATION TYPE: XR chest 1V portable DATE OF EXAM: 08/14/2024 COMPARISON: 08/13/2024 HISTORY: CHF TECHNIQUE: Single frontal view of the chest is obtained. FINDINGS: There is cardiomegaly and fluffy airspace and interstitial infiltrates consistent with the provided h istory of CHF. Allowing for differences in technique between the prior and the current study there is likely no significant interval change. There is no pneumothorax. The osseous structures are intact IMPRESSION: Acute cardiopulmonary disease with no significant interval change. [facility], Workstation: [id number] 08/14/2024 3:29 PM
[2024-08-14 16:34] LABS: Glucose,Whole Blood 168 mg/dL (70-110)
[2024-08-14 20:08] LABS: Glucose,Whole Blood 249 mg/dL (70-110)
[2024-08-14 20:08] LABS: Glucose,Whole Blood 151 mg/dL (70-110)
--- NOTE | 2024-08-14 23:08 | PN ---
PROGRESS NOTE DATE OF SERVICE: 08/14/2024 SUBJECTIVE: This is a 59-year-old woman who was admitted with CHF acute exacerbation with acute hypoxic respiratory failure, also had worsening renal failure. The 2D echo showed ejection fraction 50% to 60%. Probable bicuspid valve cannot exclude vegetation. The patient has worsening renal failure at 4.81. Multiple consultants are following the patient closely. The patient is refusing BiPAP. PAST MEDICAL HISTORY: Reviewed. REVIEW OF SYSTEMS: A 14-point review of systems is negative except as mentioned earlier. CURRENT MEDICATIONS: Reviewed. PHYSICAL EXAMINATION: VITAL SIGNS: Pulse is 75, blood pressure 124/76, respirations 20. CHEST: A few scattered rhonchi and crackles. ABDOMEN: Soft, obese. LEGS: Minimal edema. LABORATORY DATA: Hemoglobin 10.3. Creatinine and rest of the labs are noted. ASSESSMENT: 1. Congestive heart failure acute exacerbation with acute hypoxic hypercarbic respiratory failure. 2. Possible sleep apnea. 3. Acute on chronic kidney failure. 4. Diabetes mellitus, type 2. 5. Cellulitis of both legs, right more the left. 6. History of tongue tumor. 7. Morbid obesity with BMI of 43.9. RECOMMENDATIONS AND DISCUSSION: I recommend to continue current medications. Continue with BiPAP. Continue the rest of medications. Monitor fluid electrolyte balance closely. Prognosis guarded because of multiple complex medical issues. Further recommendations to follow. We will monitor creatinine closely, it is worsening. The patient might require dialysis, noncompliant with BiPAP. MMODL / CODYN: [id number] /
[2024-08-15 06:23] LABS: Glucose,Whole Blood 194 mg/dL (70-110)
[2024-08-15 07:49] LABS: African American GFR (CKD) 11 (>60 ml/min/1.73 sqM); Anion Gap 9 mmol/L; Blood Urea Nitrogen 87 mg/dL (7-17); Calcium 8.3 mg/dL (8.4-10.2); Carbon Dioxide 19 mmol/L (22-30); Chloride 111 mmol/L (98-107); Glucose 195 mg/dL (74-99); Magnesium 2.2 mg/dL (1.6-2.3); Non-African American GFR(CKD) 9 (>60 ml/min/1.73 sqM); Potassium 4.4 mmol/L (3.5-5.1); Sodium 139 mmol/L (137-145)
--- NOTE | 2024-08-15 08:41 | P.PN ---
Subjective This is a pleasant 59 years old female with past medical history of multiple medical problem including advanced stage IV CKD. Presents because she was sleepy while she was driving to her work and she got concerned so she came to the emergency room. On admission she was diagnosed with acute pulmonary edema and acute CHF exacerbation. She has been evaluated by campus safety officer and [facility] and pulmonary service. Creatinine also worsened since admission 3.3 up to 4.8, with baseline 1.7-2.1. As such Lasix was held and patient was placed on sodium bicarb at 50 mL/h although patient is looks swollen in her extremities. Also she is morbidly ob nikunj with BMI of 49.3. However she is on room air with no dyspnea. She has significant bilateral leg edema. Patient states she complains from exertional dyspnea only if she works for a large distance. She denies chest pain abdominal pain. No urinary complaint. Ortiz catheter was placed during this admission. Her lisinopril, Lipitor and glipizide are on hold. Patient currently on hydralazine metoprolol and home doses Renal ultrasound was nondiagnostic Chest x-ray showing diffuse interstitial patchy opacity on both sides proBNP is elevated to 180 Vital stable, CBC is unremarkable. INR and troponin were unremarkable Objective - Vital Signs Vital signs: Vital Signs Temp 98.0 F 08/15/24 03:56 Pulse 82 08/15/24 08:13 Resp 20 08/15/24 08:13 BP 151/78 08/15/24 08:13 Pulse Ox 94 L 08/15/24 08:13 FiO2 40 08/13/24 21:03 Intake & Output 08/14/24 08/15/24 08/15/24 18:59 06:59 18:59 Intake Total 0 Output Total 450 700 Balance -450 -700 Weight 142.7 kg Intake: Oral 0 Output: Urine 450 700 Other: Voiding Method Indwelling Catheter Indwelling Catheter - Exam -GENERAL: The patient is alert and oriented x3, not in any acute distress. Well developed, well nourished. Obese HEENT: Pupils are round and equally reacting to light. EOMI. No scleral icterus. No conjunctival pallor. Normocephalic, atraumatic. No pharyngeal erythema. No thyromegaly. CARDIOVASCULAR: S1 and S2 present. No murmurs, rubs, or gallops. PULMONARY: Chest is clear to auscultation, no wheezing , no crackles. ABDOMEN: Soft, nontender, nondistended, normoactive bowel sounds. No palpable organomegaly. MUSCULOSKELETAL: No joint swelling or deformity. -EXTREMITIES: No cyanosis, clubbing,. Bilateral upper and lower extremity edema NEUROLOGICAL: Gross neurological examination did not reveal any focal deficits. SKIN: No rashes. no petechiae. - Labs CBC & Chem 7: 08/14/24 05:52 08/15/24 07:03 Labs: Abnormal Lab Results - Last 24 Hours (Table) 08/14/24 08/14/24 08/14/24 Range/Units 11:45 16:33 19:58 Chloride (98-107) mmol/L Carbon Dioxide (22-30) mmol/L BUN (7-17) mg/dL Creatinine (0.52-1.04) mg/dL Glucose (74-99) mg/dL POC Glucose (mg/dL) 214 H 168 H 151 H (70-110) mg/dL Calcium (8.4-10.2) mg/dL 08/14/24 08/15/24 08/15/24 Range/Units 20:02 06:12 07:03 Chloride 111 H (98-107) mmol/L Carbon Dioxide 19 L (22-30) mmol/L BUN 87 H (7-17) mg/dL Creatinine 4.79 H (0.52-1.04) mg/dL Glucose 195 H (74-99) mg/dL POC Glucose (mg/dL) 249 H 194 H (70-110) mg/dL Calcium 8.3 L (8.4-10.2) mg/dL Assessment and Plan Assessment: Acute kidney injury on chronic kidney disease stage IV most likely cardiorenal s yndrome Acute pulmonary edema Acute CHF with echocardiogram on 08/14/2024 showing ejection fraction of 55 to 60% Obesity, with BMI 49.3 hypertension Diabetes mellitus Plan: Continue sodium bicarb per [facility] Hold lisinopril and glipizide and water pill per [facility] Continue with antihypertensive medication Monitor creatinine Several consultants on the case including cardiology pulmonary and [facility] Labs and medication were reviewed.. Continue same treatment. Continue with symptomatic treatment. Resume home medication. Monitor labs and vitals. DVT and GI prophylaxis. Further recommendations as per clinical course of the patient DVT prophylaxis: Subcutaneous heparin GI Prophylaxis: No need Prognosis is guarded
[2024-08-15 11:42] LABS: Glucose,Whole Blood 211 mg/dL (70-110)
--- NOTE | 2024-08-15 12:06 | P.PN ---
Subjective Progress Note Date: 08/15/24 Patient is a 59-year-old female with past medical history significant for obstructive sleep apnea, morbid obesity, chronic kidney disease, diabetes mellitus, hypertension, hyperlipidemia. Patient is currently obtunded and unable to provide information for HPI. This is supplemented by ER documentation. Apparently, earlier in the week she was at her primary care provider and was noted to be hypoxic. Yesterday, she was pulled over by the police department, she was swerving and falling asleep while driving. She was noted to be severely hypercapnic on arrival to the ED. Placed on BiPAP. Initial ABG PaO2 77, pCO2 of 68, pH of 7.17. She was left on BiPAP and a follow-up ABG showing some improvement in her hypercapnia with a PaO2 of 130, pCO2 of 161, pH of 7.23. She is currently being evaluated on the cardiac stepdown unit. She remains on BiPAP with settings 15/5 and FiO2 of 40%. She is generating tidal volumes in the mid 300s. Respiratory rate around 20 breaths/min. She does have history of obstructive sleep apnea, and is reportedly noncompliant with her CPAP. Mallampati score 4. She does have a lesion at the base of her dorsal tongue. Reportedly, this is a chronic lesion. She has some audible expiratory stridor. Chest x-ray showing poor penetration due to patient's body habitus. Likely cardiomegaly with diffuse interstitial opacities concerning for CHF and pulmonary edema. No pleural effusions. No pneumothoraces.. Receiving Lasix 40 mg 3 times daily. Does have an indwelling urinary catheter. CBC unremarkable. No leukocytosis. CMP: Sodium 143, potassium 5.1, chloride 111, serum bicarb 25, BUN 61, creatinine 3.36, glucose 215. LFTs unremarkable. Troponin 0.012. NT proBNP 2180. There is some bilateral lower extremity edema with chronic venous stasis changes. Negative for influenza, RSV, COVID. She is afebrile. Respiratory status is labile. Apparently, was up eating sandwiches and communicating earlier and is now obtunded. She continues to have episodes of apnea. I am going to repeat an ABG. Progress note dated August 14, 2024. 59-year-old female seen today in room 381. The patient is on room air. Saturations are 93%. The patient is not receiving any IV fluids. The patient did not wear the BiPAP, and refuses to wear it. Respiratory can discontinue it from the room. Current labs include a white count 9.6, hemoglobin 10.3, hematocrit 34.4, and a normal platelet count. Sodium 139, potassium 3.7, chlorides 109, CO2 24, BUN 75, creatinine 4.81. Glucose is 214. Calcium 8.1. Albumin 3.0. The patient is seen today August 15, 2024 in follow-up on the regular medical floor. She is currently sitting up at the bedside. Awake and alert in no acute distress. Maintaining O2 saturation in the 90s on room air. She has normal saline at 50 mL/h. Sodium 139. Potassium 4.4. Bicarb 19. BUN 87. Creatinine 4.79. Glucose 195. She remains on bronchodilators. Heparin for DVT prophylaxis. X-ray continues to show cardiomegaly with some interstitial infiltrates consistent with congestive heart failure. Diuretics currently on h old due to worsening renal failure per nephrology. Objective - Vital Signs Vital signs: Vital Signs Temp 98.0 F 08/15/24 03:56 Pulse 82 08/15/24 08:43 Resp 20 08/15/24 08:43 BP 151/78 08/15/24 08:13 Pulse Ox 94 L 08/15/24 08:13 FiO2 40 08/13/24 21:03 Intake & Output 08/14/24 08/15/24 08/15/24 18:59 06:59 18:59 Intake Total 0 120 Output Total 450 700 Balance -450 -700 120 Weight 142.7 kg Intake: Oral 0 120 Output: Urine 450 700 Other: Voiding Method Indwelling Catheter Indwelling Catheter Indwelling Catheter - Exam GENERAL EXAM: Alert, obese, disheveled 59-year-old female, on room air, comfortable in no apparent distress. HEAD: Normocephalic. EYES: Normal reaction of pupils, equal size. NOSE: Clear with pink turbinates. THROAT: Noted tongue lesion. NECK: No masses, no JVD. CHEST: No chest wall deformity. LUNGS: Equal air entry with crackles in the posterior bases. CVS: S1 and S2 normal with no audible murmur, regular rhythm. ABDOMEN: Obese. Normal bowel sounds, no guarding or rigidity. SPINE: No scoliosis or deformity SKIN: No rashes CENTRAL NERVOUS SYSTEM: No focal deficits, tone is normal in all 4 extremities. EXTREMITIES: There is 1+ peripheral edema. No clubbing, no cyanosis. Peripheral pulses are intact. - Labs CBC & Chem 7: 08/14/24 05:52 08/15/24 07:03 Labs: Abnormal Lab Results - Last 24 Hours (Table) 08/14/24 08/14/24 08/14/24 Range/Units 16:33 19:58 20:02 Chloride (98-107) mmol/L Carbon Dioxide (22-30) mmol/L BUN (7-17) mg/dL Creatinine (0.52-1.04) mg/dL Glucose (74-99) mg/dL POC Glucose (mg/dL) 168 H 151 H 249 H (70-110) mg/dL Calcium (8.4-10.2) mg/dL 08/15/24 08/15/24 08/15/24 Range/Units 06:12 07:03 11:41 Chloride 111 H (98-107) mmol/L Carbon Dioxide 19 L (22-30) mmol/L BUN 87 H (7-17) mg/dL Creatinine 4.79 H (0.52-1.04) mg/dL Glucose 195 H (74-99) mg/dL POC Glucose (mg/dL) 194 H 211 H (70-110) mg/dL Calcium 8.3 L (8.4-10.2) mg/dL Assessment and Plan Assessment: Acute hypoxemic and hypercapnic respiratory failure, secondary to an acute exace rbation of diastolic congestive heart failure recovered and on room air Tongue lesion. Obstructive sleep apnea, reportedly noncompliant with home CPAP. Morbid obesity, with a BMI of 49.3 kg/m. Acute on chronic kidney disease. Diabetes mellitus, type II. Hypertension. History of hyperlipidemia. Plan: The patient was seen and evaluated Chest x-ray, labs and medications reviewed Currently stable and on room air Continue bronchodilators We will continue to follow I have personally seen and examined the patient, performed the documentation and the assessment and plan as written. Number of minutes spent on the visit: 10. Dictation was produced using [employer]ation software. Please excuse any grammatical, word or spelling errors.
--- NOTE | 2024-08-15 12:47 | P.PN ---
Subjective Progress Note Date: 08/15/24 Patient is seen in follow-up for acute kidney injury on chronic kidney disease. Renal function stable today after holding Lasix. Nonoliguric. Denies chest pain or shortness of breath and feeling better. Vital signs are stable. General: No acute distress. HEENT: Head exam is unremarkable. LUNGS: No audible rhonchi or wheezes. HEART: Rate and Rhythm are regular. ABDOMEN: Obese, nontender. EXTREMITITES: No edema. Objective - Vital Signs Vital signs: Vital Signs Temp 98.0 F 08/15/24 03:56 Pulse 82 08/15/24 08:43 Resp 20 08/15/24 08:43 BP 151/78 08/15/24 08:13 Pulse Ox 94 L 08/15/24 08:13 FiO2 40 08/13/24 21:03 Intake & Output 08/14/24 08/15/24 08/15/24 18:59 06:59 18:59 Intake Total 0 120 Output Total 450 700 Balance -450 -700 120 Weight 142.7 kg Intake: Oral 0 120 Output: Urine 450 700 Other: Voiding Method Indwelling Catheter Indwelling Catheter Indwelling Catheter - Labs CBC & Chem 7: 08/14/24 05:52 08/15/24 07:03 Labs: Abnormal Lab Results - Last 24 Hours (Table) 08/14/24 08/14/24 08/14/24 Range/Units 11:45 16:33 19:58 Chloride (98-107) mmol/L Carbon Dioxide (22-30) mmol/L BUN (7-17) mg/dL Creatinine (0.52-1.04) mg/dL Glucose (74-99) mg/dL POC Glucose (mg/dL) 214 H 168 H 151 H (70-110) mg/dL Calcium (8.4-10.2) mg/dL 08/14/24 08/15/24 08/15/24 Range/Units 20:02 06:12 07:03 Chloride 111 H (98-107) mmol/L Carbon Dioxide 19 L (22-30) mmol/L BUN 87 H (7-17) mg/dL Creatinine 4.79 H (0.52-1.04) mg/dL Glucose 195 H (74-99) mg/dL POC Glucose (mg/dL) 249 H 194 H (70-110) mg/dL Calcium 8.3 L (8.4-10.2) mg/dL Assessment and Plan Assessment: 1. Acute kidney injury secondary to ATN secondary to cardiorenal syndrome. Renal function worse. Creatinine 4.8 and stable today. Nonoliguric. Has Ortiz catheter. 2. Chronic kidney disease stage IV secondary to diabetic kidney disease. 3. Volume overload. Improved with diuresis. 4. Diabetes mellitus. 5. Hypertension with chronic kidney disease. Controlled. 6. Hyperkalemia secondary to acute kidney injury and underlying RTA. Plan: Holding diuretics. Gentle IV hydration with normal saline at 50 cc an hour. Repeat chest x-ray stable infiltrates Renal diet. Renal replacement therapy has been discussed with the patient. No urgency at this time. She has been referred to vascular surgery for vein mapping and access placement outpatient.
[2024-08-15 16:55] LABS: Glucose,Whole Blood 207 mg/dL (70-110)
--- NOTE | 2024-08-15 17:05 | P.PN ---
Subjective Progress Note Date: 08/15/24 HPI: [This is a morbidly obese lady with a history of documented sleep apnea syndrome morbid obesity chronic kidney disease the diabetes who came into the hospital after she was pulled over by the police and she was driving erratically and apparently felt sleepy and was disoriented. She was found to be in hypercapnic hypoxic respiratory failure, placed on the BiPAP with modest improvement. She is now responding to questions answering appropriately. She is known to have sleep apnea was advised a CPAP before but has not been using she has some tongue lesion that seems to contribute to the obstructive sleep apnea issues. Because of the tongue lesion, patient has been refusing to wear the CPAP. We have asked nursing to contact respiratory to see if there is another mass that she can tolerate. Patient had episodes of bradycardia and also V. tach of 16 beats last evening. Believe these are related to obstructive sleep apnea and patient encouraged to utilize the CPAP. Otherwise, patient has been in a sinus rhythm. Heart rate is in the 70s, blood pressure 124/73. Laboratory studies WBC 9.6, hemoglobin 10.3, BUN 75 and creatinine 4.81. Nephrology is following and diuretics were discontinued this morning and she was started on IV hydration. Progress note August 15, 2024 BUN 87, creatinine 4.78 yesterday creatinine was 4.81. Patient continues to be oliguric. She is off diuretics as per the nephrology recommendations. 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 RECOMMENDATIONS: Nephrology team is thinking for renal replacement therapy however they feel that it is not urgent. They are obtaining vein mapping for outpatient AV fistula creation. She is off diuretics at this time Continue metoprolol titrate 50 mg twice daily Hydralazine 50 mg 3 times daily for BP control On amlodipine 10 mg daily. Will continue these medications, would recommend renal replacement therapy on urgent basis Prognosis is guarded Recommend outpatient ATTR evaluation Objective - Vital Signs Vital signs: Vital Signs Temp 98.0 F 08/15/24 03:56 Pulse 79 08/15/24 16:18 Resp 20 08/15/24 16:18 BP 146/71 08/15/24 16:18 Pulse Ox 90 L 08/15/24 16:18 FiO2 40 08/13/24 21:03 Intake & Output 08/14/24 08/15/24 08/15/24 18:59 06:59 18:59 Intake Total 0 238 Output Total 450 700 525 Balance -450 -700 -287 Weight 142.7 kg Intake: Oral 0 238 Output: Urine 450 700 525 Other: Voiding Method Indwelling Catheter Indwelling Catheter Indwelling Catheter # Bowel Movements 6 - Labs CBC & Chem 7: 08/14/24 05:52 08/15/24 07:03 Labs: Abnormal Lab Results - Last 24 Hours (Table) 08/14/24 08/14/24 08/15/24 Range/Units 19:58 20:02 06:12 Chloride (98-107) mmol/L Carbon Dioxide (22-30) mmol/L BUN (7-17) mg/dL Creatinine (0.52-1.04) mg/dL Glucose (74-99) mg/dL POC Glucose (mg/dL) 151 H 249 H 194 H (70-110) mg/dL Calcium (8.4-10.2) mg/dL 08/15/24 08/15/24 08/15/24 Range/Units 07:03 11:41 16:53 Chloride 111 H (98-107) mmol/L Carbon Dioxide 19 L (22-30) mmol/L BUN 87 H (7-17) mg/dL Creatinine 4.79 H (0.52-1.04) mg/dL Glucose 195 H (74-99) mg/dL POC Glucose (mg/dL) 211 H 207 H (70-110) mg/dL Calcium 8.3 L (8.4-10.2) mg/dL
[2024-08-15 20:17] LABS: Glucose,Whole Blood 159 mg/dL (70-110)
[2024-08-16 06:27] LABS: Glucose,Whole Blood 182 mg/dL (70-110)
[2024-08-16 07:46] LABS: African American GFR (CKD) 11 (>60 ml/min/1.73 sqM); Anion Gap 10 mmol/L; Blood Urea Nitrogen 88 mg/dL (7-17); Calcium 8.4 mg/dL (8.4-10.2); Carbon Dioxide 19 mmol/L (22-30); Chloride 110 mmol/L (98-107); Glucose 176 mg/dL (74-99); Non-African American GFR(CKD) 9 (>60 ml/min/1.73 sqM); Sodium 139 mmol/L (137-145)
[2024-08-16 08:01] LABS: Basophils % (A) 0 %; Eosinophils # (A) 0.2 k/uL (0-0.7); Eosinophils % (A) 2 %; HCT 35.6 % (34.0-46.0); HGB 10.9 gm/dL (11.4-16.0); Hypochromasia Marked; Lymphocytes # (A) 1.1 k/uL (1.0-4.8); Lymphocytes % (A) 11 %; MCH 29.4 pg (25.0-35.0); MCHC 30.7 g/dL (31.0-37.0); MCV 95.8 fL (80.0-100.0); Mean Platelet Volume 7.5; Monocytes # (A) 0.5 k/uL (0-1.0); Monocytes % (A) 5 %; Neutrophils # (A) 7.7 k/uL (1.3-7.7); Neutrophils % (A) 80 %; Platelet Count 323 k/uL (150-450); Poikilocytosis Slight; RBC 3.71 m/uL (3.80-5.40); RDW 15.9 % (11.5-15.5); WBC 9.6 k/uL (3.8-10.6)
--- NOTE | 2024-08-16 11:13 | P.PN ---
Subjective Progress Note Date: 08/16/24 Patient is a 59-year-old female with past medical history significant for obstructive sleep apnea, morbid obesity, chronic kidney disease, diabetes mellitus, hypertension, hyperlipidemia. Patient is currently obtunded and unable to provide information for HPI. This is supplemented by ER documentation. Apparently, earlier in the week she was at her primary care provider and was noted to be hypoxic. Yesterday, she was pulled over by the police department, she was swerving and falling asleep while driving. She was noted to be severely hypercapnic on arrival to the ED. Placed on BiPAP. Initial ABG PaO2 77, pCO2 of 68, pH of 7.17. She was left on BiPAP and a follow-up ABG showing some improvement in her hypercapnia with a PaO2 of 130, pCO2 of 161, pH of 7.23. She is currently being evaluated on the cardiac stepdown unit. She remains on BiPAP with settings 15/5 and FiO2 of 40%. She is generating tidal volumes in the mid 300s. Respiratory rate around 20 breaths/min. She does have history of obstructive sleep apnea, and is reportedly noncompliant with her CPAP. Mallampati score 4. She does have a lesion at the base of her dorsal tongue. Reportedly, this is a chronic lesion. She has some audible expiratory stridor. Chest x-ray showing poor penetration due to patient's body habitus. Likely cardiomegaly with diffuse interstitial opacities concerning for CHF and pulmonary edema. No pleural effusions. No pneumothoraces.. Receiving Lasix 40 mg 3 times daily. Does have an indwelling urinary catheter. CBC unremarkable. No leukocytosis. CMP: Sodium 143, potassium 5.1, chloride 111, serum bicarb 25, BUN 61, creatinine 3.36, glucose 215. LFTs unremarkable. Troponin 0.012. NT proBNP 2180. There is some bilateral lower extremity edema with chronic venous stasis changes. Negative for influenza, RSV, COVID. She is afebrile. Respiratory status is labile. Apparently, was up eating sandwiches and communicating earlier and is now obtunded. She continues to have episodes of apnea. I am going to repeat an ABG. Progress note dated August 14, 2024. 59-year-old female seen today in room 381. The patient is on room air. Saturations are 93%. The patient is not receiving any IV fluids. The patient did not wear the BiPAP, and refuses to wear it. Respiratory can discontinue it from the room. Current labs include a white count 9.6, hemoglobin 10.3, hematocrit 34.4, and a normal platelet count. Sodium 139, potassium 3.7, chlorides 109, CO2 24, BUN 75, creatinine 4.81. Glucose is 214. Calcium 8.1. Albumin 3.0. The patient is seen today August 15, 2024 in follow-up on the regular medical floor. She is currently sitting up at the bedside. Awake and alert in no acute distress. Maintaining O2 saturation in the 90s on room air. She has normal saline at 50 mL/h. Sodium 139. Potassium 4.4. Bicarb 19. BUN 87. Creatinine 4.79. Glucose 195. She remains on bronchodilators. Heparin for DVT prophylaxis. X-ray continues to show cardiomegaly with some interstitial infiltrates consistent with congestive heart failure. Diuretics currently on h old due to worsening renal failure per nephrology. The patient is seen today August 16, 2024 in follow-up on the selective care unit. She is currently sitting up in a chair. Awake and alert in no acute distress. Maintaining O2 saturation in the 90s on 2 L/min per nasal cannula. White count 9.6. Hemoglobin 10.9. Platelets 323. Sodium 139. Potassium 4.0. Bicarb 19. BUN 88. Creatinine 4.85. Glucose 176. She remains from for DVT prophylaxis. Continued on sodium bicarb tablets. Objective - Vital Signs Vital signs: Vital Signs Temp 98.0 F 08/16/24 03:23 Pulse 81 08/16/24 09:21 Resp 20 08/16/24 09:21 BP 124/68 08/16/24 08:34 Pulse Ox 95 08/16/24 08:34 FiO2 40 08/13/24 21:03 Intake & Output 08/15/24 08/16/24 08/16/24 18:59 06:59 18:59 Intake Total 338 480 Output Total 525 501 Balance -187 -501 480 Weight 145.2 kg Intake: Oral 338 480 Output: Urine 525 500 Stool 1 Other: Voiding Method Indwelling Catheter Indwelling Catheter Indwelling Catheter # Bowel Movements 0 - Exam GENERAL EXAM: Alert, obese, disheveled 59-year-old female, on 2 L nasal cannula, in no apparent distress. HEAD: Normocephalic. EYES: Normal reaction of pupils, equal size. NOSE: Clear with pink turbinates. THROAT: Noted tongue lesion. NECK: No masses, no JVD. CHEST: No chest wall deformity. LUNGS: Equal air entry with crackles in the posterior bases. CVS: S1 and S2 normal with no audible murmur, regular rhythm. ABDOMEN: Obese. Normal bowel sounds, no guarding or rigidity. SPINE: No scoliosis or deformity SKIN: No rashes CENTRAL NERVOUS SYSTEM: No focal deficits, tone is normal in all 4 extremities. EXTREMITIES: There is 1+ peripheral edema. No clubbing, no cyanosis. Peripheral pulses are intact. - Labs CBC & Chem 7: 08/16/24 06:50 08/16/24 06:50 Labs: Abnormal Lab Results - Last 24 Hours (Table) 08/15/24 08/15/24 08/15/24 Range/Units 11:41 16:53 20:15 RBC (3.80-5.40) m/uL Hgb (11.4-16.0) gm/dL MCHC (31.0-37.0) g/dL RDW (11.5-15.5) % Chloride (98-107) mmol/L Carbon Dioxide (22-30) mmol/L BUN (7-17) mg/dL Creatinine (0.52-1.04) mg/dL Glucose (74-99) mg/dL POC Glucose (mg/dL) 211 H 207 H 159 H (70-110) mg/dL 08/16/24 08/16/24 08/16/24 Range/Units 06:26 06:50 06:50 RBC 3.71 L (3.80-5.40) m/uL Hgb 10.9 L (11.4-16.0) gm/dL MCHC 30.7 L (31.0-37.0) g/dL RDW 15.9 H (11.5-15.5) % Chloride 110 H (98-107) mmol/L Carbon Dioxide 19 L (22-30) mmol/L BUN 88 H (7-17) mg/dL Creatinine 4.85 H (0.52-1.04) mg/dL Glucose 176 H (74-99) mg/dL POC Glucose (mg/dL) 182 H (70-110) mg/dL Assessment and Plan Assessment: Acute hypoxemic and hypercapnic respiratory failure, secondary to an acute exacerbation of diastolic congestive heart failure recovered and on room air Tongue lesion Obstructive sleep apnea, reportedly noncompliant with home CPAP Morbid obesity, with a BMI of 49.3 kg/m Acute on chronic kidney disease Diabetes mellitus, type II Hypertension History of hyperlipidemia Plan: The patient was seen and evaluated Labs and medications reviewed Nephrology following Continue bronchodilators Titrate down/off the FiO2 as tolerated Heparin for DVT prophylaxis We will continue to follow I have personally seen and examined the patient, performed the documentation and the assessment and plan as written. Number of minutes spent on the visit: 10. Dictation was produced using [employer] dictation software. Please excuse any grammatical, word or spelling errors.
--- NOTE | 2024-08-16 11:29 | P.PN ---
Subjective Progress Note Date: 08/16/24 Patient is seen in follow-up for acute kidney injury on chronic kidney disease. Renal function stable today after holding Lasix. Nonoliguric. Denies chest pain or shortness of breath and feeling better. Vital signs are stable. General: No acute distress. HEENT: Head exam is unremarkable. LUNGS: No audible rhonchi or wheezes. HEART: Rate and Rhythm are regular. ABDOMEN: Obese, nontender. EXTREMITITES: No edema. Objective - Vital Signs Vital signs: Vital Signs Temp 98.0 F 08/16/24 03:23 Pulse 81 08/16/24 09:21 Resp 20 08/16/24 09:21 BP 124/68 08/16/24 08:34 Pulse Ox 95 08/16/24 08:34 FiO2 40 08/13/24 21:03 Intake & Output 08/15/24 08/16/24 08/16/24 18:59 06:59 18:59 Intake Total 338 480 Output Total 525 501 Balance -187 -501 480 Weight 145.2 kg Intake: Oral 338 480 Output: Urine 525 500 Stool 1 Other: Voiding Method Indwelling Catheter Indwelling Catheter Indwelling Catheter # Bowel Movements 0 - Labs CBC & Chem 7: 08/16/24 06:50 08/16/24 06:50 Labs: Abnormal Lab Results - Last 24 Hours (Table) 08/15/24 08/15/24 08/15/24 Range/Units 11:41 16:53 20:15 RBC (3.80-5.40) m/uL Hgb (11.4-16.0) gm/dL MCHC (31.0-37.0) g/dL RDW (11.5-15.5) % Chloride (98-107) mmol/L Carbon Dioxide (22-30) mmol/L BUN (7-17) mg/dL Creatinine (0.52-1.04) mg/dL Glucose (74-99) mg/dL POC Glucose (mg/dL) 211 H 207 H 159 H (70-110) mg/dL 08/16/24 08/16/24 08/16/24 Range/Units 06:26 06:50 06:50 RBC 3.71 L (3.80-5.40) m/uL Hgb 10.9 L (11.4-16.0) gm/dL MCHC 30.7 L (31.0-37.0) g/dL RDW 15.9 H (11.5-15.5) % Chloride 110 H (98-107) mmol/L Carbon Dioxide 19 L (22-30) mmol/L BUN 88 H (7-17) mg/dL Creatinine 4.85 H (0.52-1.04) mg/dL Glucose 176 H (74-99) mg/dL POC Glucose (mg/dL) 182 H (70-110) mg/dL Assessment and Plan Assessment: 1. Acute kidney injury secondary to ATN secondary to cardiorenal syndrome. Renal function worse. Creatinine 4.8 and stable today. Nonoliguric. Has Ortiz catheter. 2. Chronic kidney disease stage IV secondary to diabetic kidney disease. 3. Volume overload. Improved with diuresis. 4. Diabetes mellitus. 5. Hypertension with chronic kidney disease. Controlled. 6. Hyperkalemia secondary to acute kidney injury and underlying RTA. Plan: Holding diuretics. Gentle IV hydration with normal saline at 50 cc an hour. Repeat chest x-ray stable infiltrates Renal diet. Renal replacement therapy has been discussed with the patient. No urgency at this time. She has been referred to vascular surgery for vein mapping and access placement outpatient.
[2024-08-16 11:48] LABS: Glucose,Whole Blood 194 mg/dL (70-110)
--- NOTE | 2024-08-16 13:52 | P.PN ---
Subjective Progress Note Date: 08/16/24 HPI: [This is a morbidly obese lady with a history of documented sleep apnea syndrome morbid obesity chronic kidney disease the diabetes who came into the hospital after she was pulled over by the police and she was driving erratically and apparently felt sleepy and was disoriented. She was found to be in hypercapnic hypoxic respiratory failure, placed on the BiPAP with modest improvement. She is now responding to questions answering appropriately. She is known to have sleep apnea was advised a CPAP before but has not been using she has some tongue lesion that seems to contribute to the obstructive sleep apnea issues. Because of the tongue lesion, patient has been refusing to wear the CPAP. We have asked nursing to contact respiratory to see if there is another mass that she can tolerate. Patient had episodes of bradycardia and also V. tach of 16 beats last evening. Believe these are related to obstructive sleep apnea and patient encouraged to utilize the CPAP. Otherwise, patient has been in a sinus rhythm. Heart rate is in the 70s, blood pressure 124/73. Laboratory studies WBC 9.6, hemoglobin 10.3, BUN 75 and creatinine 4.81. Nephrology is following and diuretics were discontinued this morning and she was started on IV hydration. Progress note August 15, 2024 BUN 87, creatinine 4.78 yesterday creatinine was 4.81. Patient continues to be oliguric. She is off diuretics as per the nephrology recommendations. August 16, 2024 Patient kidney function is stable but has not improved. She has been off diuretic as per nephrology team. She still appears to have mild respiratory distress and appears to be volume overloaded. 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 RECOMMENDATIONS: Nephrology team is thinking for renal replacement therapy however they feel that it is not urgent. They are obtaining vein mapping for outpatient AV fistula creation. She is off diuretics at this time. I would recommend that she gets evaluated for hemodialysis tomorrow and possibly consider getting a permacath placed tomorrow a.m to get volume removed as she appears to be oliguric and volume overload Continue metoprolol titrate 50 mg twice daily Hydralazine 50 mg 3 times daily for BP control On amlodipine 10 mg daily. Will continue these medications, would recommend renal replacement therapy on urgent basis Prognosis is guarded Recommend outpatient ATTR evaluation Objective - Vital Signs Vital signs: Vital Signs Temp 98.0 F 08/16/24 03:23 Pulse 76 08/16/24 12:07 Resp 20 08/16/24 11:53 BP 129/73 08/16/24 11:53 Pulse Ox 95 08/16/24 11:53 FiO2 40 08/13/24 21:03 Intake & Output 08/15/24 08/16/24 08/16/24 18:59 06:59 18:59 Intake Total 338 480 Output Total 525 501 Balance -187 -501 480 Weight 145.2 kg Intake: Oral 338 480 Output: Urine 525 500 Stool 1 Other: Voiding Method Indwelling Catheter Indwelling Catheter Indwelling Catheter # Bowel Movements 0 - Labs CBC & Chem 7: 08/16/24 06:50 08/16/24 06:50 Labs: Abnormal Lab Results - Last 24 Hours (Table) 08/15/24 08/15/24 08/16/24 Range/Units 16:53 20:15 06:26 RBC (3.80-5.40) m/uL Hgb (11.4-16.0) gm/dL MCHC (31.0-37.0) g/dL RDW (11.5-15.5) % Chloride (98-107) mmol/L Carbon Dioxide (22-30) mmol/L BUN (7-17) mg/dL Creatinine (0.52-1.04) mg/dL Glucose (74-99) mg/dL POC Glucose (mg/dL) 207 H 159 H 182 H (70-110) mg/dL 08/16/24 08/16/24 08/16/24 Range/Units 06:50 06:50 11:46 RBC 3.71 L (3.80-5.40) m/uL Hgb 10.9 L (11.4-16.0) gm/dL MCHC 30.7 L (31.0-37.0) g/dL RDW 15.9 H (11.5-15.5) % Chloride 110 H (98-107) mmol/L Carbon Dioxide 19 L (22-30) mmol/L BUN 88 H (7-17) mg/dL Creatinine 4.85 H (0.52-1.04) mg/dL Glucose 176 H (74-99) mg/dL POC Glucose (mg/dL) 194 H (70-110) mg/dL
--- NOTE | 2024-08-16 16:07 | P.PN ---
Subjective This is a pleasant 59 years old female with past medical history of multiple medical problem including advanced stage IV CKD. Presents because she was sleepy while she was driving to her work and she got concerned so she came to the emergency room. On admission she was diagnosed with acute pulmonary edema and acute CHF exacerbation. She has been evaluated by volunteer patient representative and kiln furniture saw tender and pulmonary service. Creatinine also worsened since admission 3.3 up to 4.8, with baseline 1.7-2.1. As such Lasix was held and patient was placed on sodium bicarb at 50 mL/h although patient is looks swollen in her extremities. Also she is morbidly ob nikunj with BMI of 49.3. However she is on room air with no dyspnea. She has significant bilateral leg edema. Patient states she complains from exertional dyspnea only if she works for a large distance. She denies chest pain abdominal pain. No urinary complaint. Ortiz catheter was placed during this admission. Her lisinopril, Lipitor and glipizide are on hold. Patient currently on hydralazine metoprolol and home doses Renal ultrasound was nondiagnostic Chest x-ray showing diffuse interstitial patchy opacity on both sides proBNP is elevated to 180 Vital stable, CBC is unremarkable. INR and troponin were unremarkable 08/16 Same as yesterday Looks fluid overloaded while sitting in chair however her breathing is okay She is on normal saline to help her kidney function, creatinine today stable 4.7 up to 4.8 Nephrology team considering hemodialysis. Objective - Vital Signs Vital signs: Vital Signs Temp 98.0 F 08/16/24 03:23 Pulse 81 08/16/24 09:21 Resp 20 08/16/24 09:21 BP 124/68 08/16/24 08:34 Pulse Ox 95 08/16/24 08:34 FiO2 40 08/13/24 21:03 Intake & Output 08/15/24 08/16/24 08/16/24 18:59 06:59 18:59 Intake Total 338 Output Total 525 501 Balance -187 -501 Weight 145.2 kg Intake: Oral 338 Output: Urine 525 500 Stool 1 Other: Voiding Method Indwelling Catheter Indwelling Catheter Indwelling Catheter # Bowel Movements 0 - Exam -GENERAL: The patient is alert and oriented x3, not in any acute distress. Well developed, well nourished. Obese HEENT: Pupils are round and equally reacting to light. EOMI. No scleral icterus. No conjunctival pallor. Normocephalic, atraumatic. No pharyngeal erythema. No thyromegaly. CARDIOVASCULAR: S1 and S2 present. No murmurs, rubs, or gallops. PULMONARY: Chest is clear to auscultation, no wheezing , no crackles. ABDOMEN: Soft, nontender, nondistended, normoactive bowel sounds. No palpable organomegaly. MUSCULOSKELETAL: No joint swelling or deformity. -EXTREMITIES: No cyanosis, clubbing,. Bilateral upper and lower extremity edema NEUROLOGICAL: Gross neurological examination did not reveal any focal deficits. SKIN: No rashes. no petechiae. - Labs CBC & Chem 7: 08/16/24 06:50 08/16/24 06:50 Labs: Abnormal Lab Results - Last 24 Hours (Table) 08/15/24 08/15/24 08/15/24 Range/Units 11:41 16:53 20:15 RBC (3.80-5.40) m/uL Hgb (11.4-16.0) gm/dL MCHC (31.0-37.0) g/dL RDW (11.5-15.5) % Chloride (98-107) mmol/L Carbon Dioxide (22-30) mmol/L BUN (7-17) mg/dL Creatinine (0.52-1.04) mg/dL Glucose (74-99) mg/dL POC Glucose (mg/dL) 211 H 207 H 159 H (70-110) mg/dL 08/16/24 08/16/24 08/16/24 Range/Units 06:26 06:50 06:50 RBC 3.71 L (3.80-5.40) m/uL Hgb 10.9 L (11.4-16.0) gm/dL MCHC 30.7 L (31.0-37.0) g/dL RDW 15.9 H (11.5-15.5) % Chloride 110 H (98-107) mmol/L Carbon Dioxide 19 L (22-30) mmol/L BUN 88 H (7-17) mg/dL Creatinine 4.85 H (0.52-1.04) mg/dL Glucose 176 H (74-99) mg/dL POC Glucose (mg/dL) 182 H (70-110) mg/dL Assessment and Plan Assessment: Acute kidney injury on chronic kidney disease stage IV most likely cardiorenal syndrome Acute pulmonary edema Acute CHF with echocardiogram on 08/14/2024 showing ejection fraction of 55 to 60% Obesity, with BMI 49.3 hypertension Diabetes mellitus Plan: Continue sodium bicarb per kiln furniture saw tender Hold lisinopril and glipizide and water pill per kiln furniture saw tender Continue with antihypertensive medication Monitor creatinine Several consultants on the case including cardiology pulmonary and kiln furniture saw tender Labs and medication were reviewed.. Continue same treatment. Continue with symptomatic treatment. Resume home medication. Monitor labs and vitals. DVT and GI prophylaxis. Further recommendations as per clinical course of the patient DVT prophylaxis: Subcutaneous heparin GI Prophylaxis: No need Prognosis is guarded
[2024-08-16 16:41] LABS: Glucose,Whole Blood 216 mg/dL (70-110)
[2024-08-16] MEDS: LOPERAMIDE 2 MG CAP PO ONE (17:52)
[2024-08-16 20:03] LABS: Glucose,Whole Blood 306 mg/dL (70-110)
[2024-08-17 05:48] LABS: Glucose,Whole Blood 220 mg/dL (70-110)
[2024-08-17 06:43] LABS: Basophils % (A) 0 %; Eosinophils # (A) 0.2 k/uL (0-0.7); Eosinophils % (A) 2 %; HCT 36.7 % (34.0-46.0); HGB 10.8 gm/dL (11.4-16.0); Hypochromasia Marked; Lymphocytes # (A) 0.7 k/uL (1.0-4.8); Lymphocytes % (A) 8 %; MCH 28.4 pg (25.0-35.0); MCHC 29.4 g/dL (31.0-37.0); MCV 96.6 fL (80.0-100.0); Mean Platelet Volume 6.6; Monocytes # (A) 0.5 k/uL (0-1.0); Monocytes % (A) 5 %; Neutrophils # (A) 8.1 k/uL (1.3-7.7); Neutrophils % (A) 84 %; Platelet Count 329 k/uL (150-450); RDW 15.5 % (11.5-15.5); WBC 9.7 k/uL (3.8-10.6)
[2024-08-17 07:14] LABS: African American GFR (CKD) 10 (>60 ml/min/1.73 sqM); Anion Gap 9 mmol/L; Blood Urea Nitrogen 91 mg/dL (7-17); Calcium 8.4 mg/dL (8.4-10.2); Carbon Dioxide 21 mmol/L (22-30); Chloride 110 mmol/L (98-107); Glucose 210 mg/dL (74-99); Non-African American GFR(CKD) 9 (>60 ml/min/1.73 sqM); Potassium 4.3 mmol/L (3.5-5.1); Sodium 140 mmol/L (137-145)
--- NOTE | 2024-08-17 08:16 | P.PN ---
Subjective This is a pleasant 59 years old female with past medical history of multiple medical problem including advanced stage IV CKD. Presents because she was sleepy while she was driving to her work and she got concerned so she came to the emergency room. On admission she was diagnosed with acute pulmonary edema and acute CHF exacerbation. She has been evaluated by take away attendant and cloth hauler and pulmonary service. Creatinine also worsened since admission 3.3 up to 4.8, with baseline 1.7-2.1. As such Lasix was held and patient was placed on sodium bicarb at 50 mL/h although patient is looks swollen in her extremities. Also she is morbidly ob nikunj with BMI of 49.3. However she is on room air with no dyspnea. She has significant bilateral leg edema. Patient states she complains from exertional dyspnea only if she works for a large distance. She denies chest pain abdominal pain. No urinary complaint. Ortiz catheter was placed during this admission. Her lisinopril, Lipitor and glipizide are on hold. Patient currently on hydralazine metoprolol and home doses Renal ultrasound was nondiagnostic Chest x-ray showing diffuse interstitial patchy opacity on both sides proBNP is elevated to 180 Vital stable, CBC is unremarkable. INR and troponin were unremarkable 08/16 Same as yesterday Looks fluid overloaded while sitting in chair however her breathing is okay She is on normal saline to help her kidney function, creatinine today stable 4.7 up to 4.8 Nephrology team considering hemodialysis. 08/17 Patient getting more tachypneic today and mildly hypoxic, she is saturating 84% on room air and 94% on 2 L Other than that she denies any other complaints Creatinine 5.0 today She is on sodium bicarb at 50 mL/h Objective - Vital Signs Vital signs: Vital Signs Temp 97.2 F L 08/17/24 03:55 Pulse 84 08/17/24 03:55 Resp 26 H 08/17/24 04:00 BP 144/71 08/17/24 03:55 Pulse Ox 94 L 08/17/24 04:00 FiO2 40 08/13/24 21:03 Intake & Output 08/16/24 08/17/24 08/17/24 18:59 06:59 18:59 Intake Total 1419 20 Output Total 600 850 Balance 819 -830 Weight 146.5 kg Intake: IV 20 Invasive Line 1 10 Invasive Line 2 10 Oral 1419 0 Output: Urine 600 850 Other: Voiding Method Indwelling Catheter Indwelling Catheter # Bowel Movements 1 - Exam -GENERAL: The patient is alert and oriented x3, not in any acute distress. Well developed, well nourished. Obese HEENT: Pupils are round and equally reacting to light. EOMI. No scleral icterus. No conjunctival pallor. Normocephalic, atraumatic. No pharyngeal erythema. No thyromegaly. CARDIOVASCULAR: S1 and S2 present. No murmurs, rubs, or gallops. PULMONARY: Chest is clear to auscultation, no wheezing , no crackles. ABDOMEN: Soft, nontender, nondistended, normoactive bowel sounds. No palpable organomegaly. MUSCULOSKELETAL: No joint swelling or deformity. -EXTREMITIES: No cyanosis, clubbing,. Bilateral upper and lower extremity edema NEUROLOGICAL: Gross neurological examination did not reveal any focal deficits. SKIN: No rashes. no petechiae. - Labs CBC & Chem 7: 08/17/24 06:21 08/17/24 06:21 Labs: Abnormal Lab Results - Last 24 Hours (Table) 08/16/24 08/16/24 08/16/24 Range/Units 11:46 16:40 20:02 Hgb (11.4-16.0) gm/dL MCHC (31.0-37.0) g/dL Neutrophils # (1.3-7.7) k/uL Lymphocytes # (1.0-4.8) k/uL Chloride (98-107) mmol/L Carbon Dioxide (22-30) mmol/L BUN (7-17) mg/dL Creatinine (0.52-1.04) mg/dL Glucose (74-99) mg/dL POC Glucose (mg/dL) 194 H 216 H 306 H (70-110) mg/dL 08/17/24 08/17/24 08/17/24 Range/Units 05:46 06:21 06:21 Hgb 10.8 L (11.4-16.0) gm/dL MCHC 29.4 L (31.0-37.0) g/dL Neutrophils # 8.1 H (1.3-7.7) k/uL Lymphocytes # 0.7 L (1.0-4.8) k/uL Chloride 110 H (98-107) mmol/L Carbon Dioxide 21 L (22-30) mmol/L BUN 91 H (7-17) mg/dL Creatinine 5.05 H (0.52-1.04) mg/dL Glucose 210 H (74-99) mg/dL POC Glucose (mg/dL) 220 H (70-110) mg/dL Assessment and Plan Assessment: Acute kidney injury on chronic kidney disease stage IV most likely cardiorenal syndrome Acute pulmonary edema Acute CHF with echocardiogram on 08/14/2024 showing ejection fraction of 55 to 60% Obesity, with BMI 49.3 hypertension Diabetes mellitus Plan: Continue sodium bicarb per cloth hauler Hold lisinopril and glipizide and water pill per cloth hauler Continue with antihypertensive medication Monitor creatinine Several consultants on the case including cardiology pulmonary and cloth hauler Labs and medication were reviewed.. Continue same treatment. Continue with symptomatic treatment. Resume home medication. Monitor labs and vitals. DVT and GI prophylaxis. Further recommendations as per clinical course of the patient DVT prophylaxis: Subcutaneous heparin GI Prophylaxis: No need Prognosis is guarded
[2024-08-17 11:46] LABS: Glucose,Whole Blood 215 mg/dL (70-110)
--- NOTE | 2024-08-17 11:59 | P.PN ---
Subjective Progress Note Date: 08/17/24 HPI: [This is a morbidly obese lady with a history of documented sleep apnea syndrome morbid obesity chronic kidney disease the diabetes who came into the hospital after she was pulled over by the police and she was driving erratically and apparently felt sleepy and was disoriented. She was found to be in hypercapnic hypoxic respiratory failure, placed on the BiPAP with modest improvement. She is now responding to questions answering appropriately. She is known to have sleep apnea was advised a CPAP before but has not been using she has some tongue lesion that seems to contribute to the obstructive sleep apnea issues. Because of the tongue lesion, patient has been refusing to wear the CPAP. We have asked nursing to contact respiratory to see if there is another mass that she can tolerate. Patient had episodes of bradycardia and also V. tach of 16 beats last evening. Believe these are related to obstructive sleep apnea and patient encouraged to utilize the CPAP. Otherwise, patient has been in a sinus rhythm. Heart rate is in the 70s, blood pressure 124/73. Laboratory studies WBC 9.6, hemoglobin 10.3, BUN 75 and creatinine 4.81. Nephrology is following and diuretics were discontinued this morning and she was started on IV hydration. Progress note August 15, 2024 BUN 87, creatinine 4.78 yesterday creatinine was 4.81. Patient continues to be oliguric. She is off diuretics as per the nephrology recommendations. August 16, 2024 Patient kidney function is stable but has not improved. She has been off diuretic as per nephrology team. She still appears to have mild respiratory distress and appears to be volume overloaded. Hemodynamically stable otherwise August 17, 2024 Patient was seen this morning. She still appears to have some shortness of breath and volume overloaded. She is doing well otherwise. No chest pain, nausea, vomiting, fever, chills, diarrhea. PHYSICIAL EXAM: S1-S2 is audible, No diastolic/systolic murmurs Diminished breath sounds due to poor inspiratory effort, mild crackles audible in bilateral lung hutson 1+ pitting edema bilateral lower extremity No focal neurological deficits, detailed neuroexam was not performed IMPRESSION: Acute hypoxic and hypercapnic respiratory failure MANINDER on CKD with oliguric ATN Acute HFpEF exacerbation Severe concentric LVH Nonsustained ventricular tachycardia Systolic murmur EKG shows sinus rhythm with Q waves inferior lead Echocardiogram from August 2024 shows an EF of 55% with severe concentric LVH, mild mitral regurgitation mild pulmonary hypertension thickened aortic valve. RECOMMENDATIONS: Continue metoprolol titrate 50 mg twice daily, Hydralazine 50 mg 3 times daily for BP control, and amlodipine 10 mg daily. Will continue these medications, would recommend renal replacement therapy on urgent basis Prognosis is guarded Recommend outpatient ATTR evaluation Objective - Vital Signs Vital signs: Vital Signs Temp 97.5 F L 08/17/24 09:30 Pulse 78 08/17/24 09:30 Resp 22 08/17/24 09:30 BP 129/71 08/17/24 09:30 Pulse Ox 98 08/17/24 09:30 FiO2 40 08/13/24 21:03 Intake & Output 08/16/24 08/17/24 08/17/24 18:59 06:59 18:59 Intake Total 1419 20 Output Total 600 850 1 Balance 819 -830 -1 Weight 146.5 kg Intake: IV 20 Invasive Line 1 10 Invasive Line 2 10 Oral 1419 0 Output: Urine 600 850 Stool 1 Other: Voiding Method Indwelling Catheter Indwelling Catheter Indwelling Catheter # Bowel Movements 1 - Labs CBC & Chem 7: 08/17/24 06:21 08/17/24 06:21 Labs: Abnormal Lab Results - Last 24 Hours (Table) 08/16/24 08/16/24 08/16/24 Range/Units 11:46 16:40 20:02 Hgb (11.4-16.0) gm/dL MCHC (31.0-37.0) g/dL Neutrophils # (1.3-7.7) k/uL Lymphocytes # (1.0-4.8) k/uL Chloride (98-107) mmol/L Carbon Dioxide (22-30) mmol/L BUN (7-17) mg/dL Creatinine (0.52-1.04) mg/dL Glucose (74-99) mg/dL POC Glucose (mg/dL) 194 H 216 H 306 H (70-110) mg/dL 08/17/24 08/17/24 08/17/24 Range/Units 05:46 06:21 06:21 Hgb 10.8 L (11.4-16.0) gm/dL MCHC 29.4 L (31.0-37.0) g/dL Neutrophils # 8.1 H (1.3-7.7) k/uL Lymphocytes # 0.7 L (1.0-4.8) k/uL Chloride 110 H (98-107) mmol/L Carbon Dioxide 21 L (22-30) mmol/L BUN 91 H (7-17) mg/dL Creatinine 5.05 H (0.52-1.04) mg/dL Glucose 210 H (74-99) mg/dL POC Glucose (mg/dL) 220 H (70-110) mg/dL
--- NOTE | 2024-08-17 14:13 | P.PN ---
Subjective patient is seen for follow-up for acute kidney injury and chronic kidney disease. Renal function had worsened with diuresis and Lasix is currently on hold. Started on IV fluids at 50 mL an hour on 08/14/2024 No significant complaints today. Serum creatinine increased to 5.0 today. 24 hour urine output noted at 1.4 L. Patient has an indwelling Ortiz catheter. No hypotension noted. Objective - Vital Signs Vital signs: Vital Signs Temp 97.5 F L 08/17/24 09:30 Pulse 79 08/17/24 12:06 Resp 22 08/17/24 09:30 BP 129/71 08/17/24 09:30 Pulse Ox 98 08/17/24 09:30 FiO2 40 08/13/24 21:03 Intake & Output 08/16/24 08/17/24 08/17/24 18:59 06:59 18:59 Intake Total 1419 20 Output Total 600 850 1 Balance 819 -830 -1 Weight 146.5 kg Intake: IV 20 Invasive Line 1 10 Invasive Line 2 10 Oral 1419 0 Output: Urine 600 850 Stool 1 Other: Voiding Method Indwelling Catheter Indwelling Catheter Indwelling Catheter # Bowel Movements 1 1 - Exam patient is awake, comfortable, no acute distress. Examination of the heart S1 and S2 Examination of the lungs bilateral breath sounds are heard Abdomen is soft morbidly obese Examination of lower extremity shows chronic edema with chronic skin changes. 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 INSPECTOR exam grossly intact - Labs CBC & Chem 7: 08/17/24 06:21 08/17/24 06:21 Labs: Abnormal Lab Results - Last 24 Hours (Table) 08/16/24 08/16/24 08/17/24 Range/Units 16:40 20:02 05:46 Hgb (11.4-16.0) gm/dL MCHC (31.0-37.0) g/dL Neutrophils # (1.3-7.7) k/uL Lymphocytes # (1.0-4.8) k/uL Chloride (98-107) mmol/L Carbon Dioxide (22-30) mmol/L BUN (7-17) mg/dL Creatinine (0.52-1.04) mg/dL Glucose (74-99) mg/dL POC Glucose (mg/dL) 216 H 306 H 220 H (70-110) mg/dL 08/17/24 08/17/24 08/17/24 Range/Units 06:21 06:21 11:44 Hgb 10.8 L (11.4-16.0) gm/dL MCHC 29.4 L (31.0-37.0) g/dL Neutrophils # 8.1 H (1.3-7.7) k/uL Lymphocytes # 0.7 L (1.0-4.8) k/uL Chloride 110 H (98-107) mmol/L Carbon Dioxide 21 L (22-30) mmol/L BUN 91 H (7-17) mg/dL Creatinine 5.05 H (0.52-1.04) mg/dL Glucose 210 H (74-99) mg/dL POC Glucose (mg/dL) 215 H (70-110) mg/dL Assessment and Plan Assessment: 1. Acute kidney injury secondary to ATN secondary to cardiorenal syndrome. Renal function worse. Creatinine 5.0 today. Nonoliguric. Has Ortiz catheter. Maintained on IV fluids at 50 mL an hour 2. Chronic kidney disease stage IV secondary to diabetic kidney disease with baseline creatinine around 2 mg/dL 3. Volume overload. Improved with diuresis. 4. Diabetes mellitus. 5. Hypertension with chronic kidney disease. Controlled. 6. Hyperkalemia secondary to acute kidney injury and underlying RTA. Plan: DC IV fluids DC Norvasc Repeat labs in a.m. Repeat chest x-ray Start renal replacement therapy if renal function continues to worsen.
--- NOTE | 2024-08-17 15:23 | P.PN ---
Subjective Progress Note Date: 08/17/24 Patient is a 59-year-old female with past medical history significant for obstructive sleep apnea, morbid obesity, chronic kidney disease, diabetes mellitus, hypertension, hyperlipidemia. Patient is currently obtunded and unable to provide information for HPI. This is supplemented by ER documentation. Apparently, earlier in the week she was at her primary care provider and was noted to be hypoxic. Yesterday, she was pulled over by the police department, she was swerving and falling asleep while driving. She was noted to be severely hypercapnic on arrival to the ED. Placed on BiPAP. Initial ABG PaO2 77, pCO2 of 68, pH of 7.17. She was left on BiPAP and a follow-up ABG showing some improvement in her hypercapnia with a PaO2 of 130, pCO2 of 161, pH of 7.23. She is currently being evaluated on the cardiac stepdown unit. She remains on BiPAP with settings 15/5 and FiO2 of 40%. She is generating tidal volumes in the mid 300s. Respiratory rate around 20 breaths/min. She does have history of obstructive sleep apnea, and is reportedly noncompliant with her CPAP. Mallampati score 4. She does have a lesion at the base of her dorsal tongue. Reportedly, this is a chronic lesion. She has some audible expiratory stridor. Chest x-ray showing poor penetration due to patient's body habitus. Likely cardiomegaly with diffuse interstitial opacities concerning for CHF and pulmonary edema. No pleural effusions. No pneumothoraces.. Receiving Lasix 40 mg 3 times daily. Does have an indwelling urinary catheter. CBC unremarkable. No leukocytosis. CMP: Sodium 143, potassium 5.1, chloride 111, serum bicarb 25, BUN 61, creatinine 3.36, glucose 215. LFTs unremarkable. Troponin 0.012. NT proBNP 2180. There is some bilateral lower extremity edema with chronic venous stasis changes. Negative for influenza, RSV, COVID. She is afebrile. Respiratory status is labile. Apparently, was up eating sandwiches and communicating earlier and is now obtunded. She continues to have episodes of apnea. I am going to repeat an ABG. Progress note dated August 14, 2024. 59-year-old female seen today in room 381. The patient is on room air. Saturations are 93%. The patient is not receiving any IV fluids. The patient did not wear the BiPAP, and refuses to wear it. Respiratory can discontinue it from the room. Current labs include a white count 9.6, hemoglobin 10.3, hematoc rit 34.4, and a normal platelet count. Sodium 139, potassium 3.7, chlorides 109, CO2 24, BUN 75, creatinine 4.81. Glucose is 214. Calcium 8.1. Albumin 3.0. The patient is seen today August 15, 2024 in follow-up on the regular medical floor. She is currently sitting up at the bedside. Awake and alert in no acute distress. Maintaining O2 saturation in the 90s on room air. She has normal sa line at 50 mL/h. Sodium 139. Potassium 4.4. Bicarb 19. BUN 87. Creatinine 4.79. Glucose 195. She remains on bronchodilators. Heparin for DVT prophylaxis. X-ray continues to show cardiomegaly with some interstitial infiltrates consistent with congestive heart failure. Diuretics currently on hold due to worsening renal failure per nephrology. The patient is seen today August 16, 2024 in follow-up on the selective care unit. She is currently sitting up in a chair. Awake and alert in no acute distress. Maintaining O2 saturation in the 90s on 2 L/min per nasal cannula. White count 9.6. Hemoglobin 10.9. Platelets 323. Sodium 139. Potassium 4.0. Bicarb 19. BUN 88. Creatinine 4.85. Glucose 176. She remains from for DVT prophylaxis. Continued on sodium bicarb tablets. 08/17/2024, patient is being seen for a follow-up. The patient had an acute hypoxic/hypercapnic respiratory failure with underlying diastolic dysfunction and COPD. The patient also has known to have obstructive sleep apnea, noncompliant to CPAP therapy. She is morbidly obese with a BMI of 50.6. She also has a cancerous lung lesion. Other comorbidities include diabetes and hypertension hyperlipidemia. This morning, the patient is on 2 L of oxygen by nasal cannula with pulse ox of 98%. No signs of any CO2 narcosis. The patient is on DuoNeb nebulized treatments [id number]. The patient remains on metoprolol 50 mg p.o. twice a day and hydralazine 50 mg p.o. 3 times daily for blood pressure control. She remains on oral bicarb. BUN is at 91 with a creatinine of 5.05 and there is progressive worsening renal function. Sodium is at 140. Potassium is at 4.3. Bicarb is at 21. WBC count is at 9.7 with a hemoglobin 10.8 and a platelet count of 329. The most recent chest x-ray from 08/14/2024 shows no acute cardiopulmonary abnormalities. Echocardiogram done on 08/14/2024 showed a preserved LV function with an EF of around 55 to 60%. RV was not adequately visualized. Probable bicuspid aortic valve. Mild pulmonary hypertension is suspected. Objective - Vital Signs Vital signs: Vital Signs Temp 97.5 F L 08/17/24 09:30 Pulse 79 08/17/24 12:06 Resp 22 08/17/24 09:30 BP 129/71 08/17/24 09:30 Pulse Ox 98 08/17/24 09:30 FiO2 40 08/13/24 21:03 Intake & Output 08/16/24 08/17/24 08/17/24 18:59 06:59 18:59 Intake Total 1419 20 Output Total 600 850 1 Balance 819 -830 -1 Weight 146.5 kg Intake: IV 20 Invasive Line 1 10 Invasive Line 2 10 Oral 1419 0 Output: Urine 600 850 Stool 1 Other: Voiding Method Indwelling Catheter Indwelling Catheter Indwelling Catheter # Bowel Movements 1 1 - Exam GENERAL EXAM: Alert, obese, disheveled 59-year-old female, on 2 L nasal cannula, in no apparent distress. HEAD: Normocephalic. EYES: Normal reaction of pupils, equal size. NOSE: Clear with pink turbinates. THROAT: Noted tongue lesion. NECK: No masses, no JVD. CHEST: No chest wall deformity. LUNGS: Equal air entry with crackles in the posterior bases. CVS: S1 and S2 normal with no audible murmur, regular rhythm. ABDOMEN: Obese. Normal bowel sounds, no guarding or rigidity. SPINE: No scoliosis or deformity SKIN: No rashes CENTRAL NERVOUS SYSTEM: No focal deficits, tone is normal in all 4 extremities. EXTREMITIES: There is 1+ peripheral edema. No clubbing, no cyanosis. Peripheral pulses are intact. - Labs CBC & Chem 7: 08/17/24 06:21 08/17/24 06:21 Labs: Abnormal Lab Results - Last 24 Hours (Table) 08/16/24 08/16/24 08/17/24 Range/Units 16:40 20:02 05:46 Hgb (11.4-16.0) gm/dL MCHC (31.0-37.0) g/dL Neutrophils # (1.3-7.7) k/uL Lymphocytes # (1.0-4.8) k/uL Chloride (98-107) mmol/L Carbon Dioxide (22-30) mmol/L BUN (7-17) mg/dL Creatinine (0.52-1.04) mg/dL Glucose (74-99) mg/dL POC Glucose (mg/dL) 216 H 306 H 220 H (70-110) mg/dL 08/17/24 08/17/24 08/17/24 Range/Units 06:21 06:21 11:44 Hgb 10.8 L (11.4-16.0) gm/dL MCHC 29.4 L (31.0-37.0) g/dL Neutrophils # 8.1 H (1.3-7.7) k/uL Lymphocytes # 0.7 L (1.0-4.8) k/uL Chloride 110 H (98-107) mmol/L Carbon Dioxide 21 L (22-30) mmol/L BUN 91 H (7-17) mg/dL Creatinine 5.05 H (0.52-1.04) mg/dL Glucose 210 H (74-99) mg/dL POC Glucose (mg/dL) 215 H (70-110) mg/dL Assessment and Plan Plan: Acute hypoxemic and hypercapnic respiratory failure, secondary to an acute exacerbation of diastolic congestive heart failure recovered and on room air, no significant hypoxemia or signs of CO2 narcosis at this point in time. Tongue lesion, cancerous, not receiving any treatment at this point in time. Obstructive sleep apnea, reportedly noncompliant with home CPAP Morbid obesity, with a BMI of 49.3 kg/m Acute on chronic kidney disease, progressive worsening renal function. No significant acidosis. Currently on oral bicarb. Diabetes mellitus, type II Hypertension History of hyperlipidemia Plan: Monitor renal function, no signs of any significant fluid overload or acidosis Nephrology following Continue bronchodilators Titrate down/off the FiO2 as tolerated Heparin for DVT prophylaxis We will continue to follow
[2024-08-17 17:03] LABS: Glucose,Whole Blood 199 mg/dL (70-110)
[2024-08-17 20:18] LABS: Glucose,Whole Blood 229 mg/dL (70-110)
[2024-08-18 06:04] LABS: Glucose,Whole Blood 267 mg/dL (70-110)
[2024-08-18 07:58] LABS: ALT 15 U/L (4-34); AST 16 U/L (14-36); African American GFR (CKD) 11 (>60 ml/min/1.73 sqM); Albumin 3.1 g/dL (3.5-5.0); Alkaline Phosphatase 90 U/L (38-126); Anion Gap 9 mmol/L; Blood Urea Nitrogen 96 mg/dL (7-17); Calcium 8.5 mg/dL (8.4-10.2); Carbon Dioxide 21 mmol/L (22-30); Chloride 111 mmol/L (98-107); Glucose 227 mg/dL (74-99); Magnesium 2.3 mg/dL (1.6-2.3); Non-African American GFR(CKD) 9 (>60 ml/min/1.73 sqM); Potassium 4.2 mmol/L (3.5-5.1); Sodium 141 mmol/L (137-145); Total Bilirubin 0.3 mg/dL (0.2-1.3); Total Protein 5.9 g/dL (6.3-8.2)
[2024-08-18 11:19] LABS: Glucose,Whole Blood 175 mg/dL (70-110)
[2024-08-18 12:13] VITALS: BMI 50.3
--- NOTE | 2024-08-18 12:31 | P.PN ---
Subjective HISTORY OF PRESENT ILLNESS: This is a 59-year-old female who was admitted to the hospital secondary to CHF and acute renal failure. Patient examined this morning at the bedside. Patient currently denies any chest pain or pressure. She is sitting up in the chair and denies any shortness of breath at the time of examination. Blood pressures r emain elevated with a recent reading of 169/83. Creatinine today is stable at 4.75. Echocardiogram from August 2024 shows an EF of 55% with severe concentric LVH, mild mitral regurgitation mild pulmonary hypertension thickened aortic valve. PHYSICAL EXAM: VITAL SIGNS: Reviewed. GENERAL: Well-developed in no acute distress. NECK: Supple. No JVD or thyromegaly LUNGS: Respirations even and unlabored. Lungs diminished bilaterally HEART: Regular rate and rhythm. S1 and S2 heard. Systolic murmur noted. EXTREMITIES: Normal range of motion. No clubbing or cyanosis. Peripheral pulses intact. Bilateral lower extremity edema with chronic skin discoloration noted. ASSESSMENT: Acute hypoxic and hypercapnic respiratory failure Acute on chronic heart failure with preserved EF Acute on chronic kidney disease Severe concentric LVH Nonsustained ventricular tachycardia Hypertension Hyperlipidemia Diabetes Morbid obesity: BMI 49.3 Obstructive sleep apnea, not compliant with CPAP on an outpatient basis PLAN: Continue to avoid any nephrotoxic agents Increase hydralazine to 75 mg 3 times daily for optimal blood pressure control Nephrology following. Continue to monitor kidney function. Continue to evaluate need for initiation of hemodialysis. Further recommendations pending patient course Patient does not currently follow with a product marketing specialist outpatient. Upon discharge, patient will follow-up in the office with Dr. Rodriguez. Nurse practitioner note has been reviewed by physician. Signing provider agrees with the documented findings, assessment, and plan of care documented by [employer]AVER as a scribe. Objective - Vital Signs Vital signs: Vital Signs Temp 98.2 F 08/18/24 04:00 Pulse 66 08/18/24 12:00 Resp 16 08/18/24 12:00 BP 169/83 08/18/24 12:00 Pulse Ox 95 08/18/24 12:00 FiO2 40 08/13/24 21:03 Intake & Output 08/17/24 08/18/24 08/18/24 18:59 06:59 18:59 Intake Total 300 10 Output Total 1002 501 1 Balance -702 -491 -1 Weight 145.6 kg 145.6 kg Intake: IV 10 Invasive Line 2 10 Oral 300 0 Output: Urine 1000 500 Stool 2 1 1 Other: Voiding Method Indwelling Catheter Indwelling Catheter Indwelling Catheter # Voids 0 2 1 # Bowel Movements 1 1 - Labs CBC & Chem 7: 08/17/24 06:21 08/18/24 07:07 Labs: Abnormal Lab Results - Last 24 Hours (Table) 08/17/24 08/17/24 08/18/24 Range/Units 17:01 20:16 06:02 Chloride (98-107) mmol/L Carbon Dioxide (22-30) mmol/L BUN (7-17) mg/dL Creatinine (0.52-1.04) mg/dL Glucose (74-99) mg/dL POC Glucose (mg/dL) 199 H 229 H 267 H (70-110) mg/dL Total Protein (6.3-8.2) g/dL Albumin (3.5-5.0) g/dL 08/18/24 08/18/24 Range/Units 07:07 11:18 Chloride 111 H (98-107) mmol/L Carbon Dioxide 21 L (22-30) mmol/L BUN 96 H (7-17) mg/dL Creatinine 4.75 H (0.52-1.04) mg/dL Glucose 227 H (74-99) mg/dL POC Glucose (mg/dL) 175 H (70-110) mg/dL Total Protein 5.9 L (6.3-8.2) g/dL Albumin 3.1 L (3.5-5.0) g/dL
--- NOTE | 2024-08-18 13:19 | P.PN ---
Subjective patient is seen for follow-up for acute kidney injury and chronic kidney disease. Renal function had worsened with diuresis and Lasix is currently on hold. Serum creatinine improved to 4.7 today. IV fluids were discontinued yesterday. No significant complaints today. 24 hour urine output noted at 1.5 L. Patient has an indwelling Ortiz catheter. No hypotension noted. Objective - Vital Signs Vital signs: Vital Signs Temp 98.2 F 08/18/24 04:00 Pulse 66 08/18/24 12:00 Resp 16 08/18/24 12:00 BP 169/83 08/18/24 12:00 Pulse Ox 95 08/18/24 12:00 FiO2 40 08/13/24 21:03 Intake & Output 08/17/24 08/18/24 08/18/24 18:59 06:59 18:59 Intake Total 300 10 Output Total 1002 501 1 Balance -702 -491 -1 Weight 145.6 kg 145.6 kg Intake: IV 10 Invasive Line 2 10 Oral 300 0 Output: Urine 1000 500 Stool 2 1 1 Other: Voiding Method Indwelling Catheter Indwelling Catheter Indwelling Catheter # Voids 0 2 1 # Bowel Movements 1 1 - Exam patient is awake, comfortable, no acute distress. Examination of the heart S1 and S2 Examination of the lungs bilateral breath sounds are heard Abdomen is soft morbidly obese Examination of lower extremity shows chronic edema with chronic skin changes. 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 exam grossly intact - Labs CBC & Chem 7: 08/17/24 06:21 08/18/24 07:07 Labs: Abnormal Lab Results - Last 24 Hours (Table) 08/17/24 08/17/24 08/18/24 Range/Units 17:01 20:16 06:02 Chloride (98-107) mmol/L Carbon Dioxide (22-30) mmol/L BUN (7-17) mg/dL Creatinine (0.52-1.04) mg/dL Glucose (74-99) mg/dL POC Glucose (mg/dL) 199 H 229 H 267 H (70-110) mg/dL Total Protein (6.3-8.2) g/dL Albumin (3.5-5.0) g/dL 08/18/24 08/18/24 Range/Units 07:07 11:18 Chloride 111 H (98-107) mmol/L Carbon Dioxide 21 L (22-30) mmol/L BUN 96 H (7-17) mg/dL Creatinine 4.75 H (0.52-1.04) mg/dL Glucose 227 H (74-99) mg/dL POC Glucose (mg/dL) 175 H (70-110) mg/dL Total Protein 5.9 L (6.3-8.2) g/dL Albumin 3.1 L (3.5-5.0) g/dL Assessment and Plan Assessment: 1. Acute kidney injury secondary to ATN secondary to cardiorenal syndrome. Renal function improved slightly today with serum creatinine at 4.7.. Nonoliguric. Has Ortiz catheter. 2. Chronic kidney disease stage IV secondary to diabetic kidney disease with baseline creatinine around 2 mg/dL 3. Volume overload. Improved with diuresis. 4. Diabetes mellitus. 5. Hypertension with chronic kidney disease. Controlled. 6. Hyperkalemia secondary to acute kidney injury and underlying RTA. Plan: continue off of IV fluids Repeat labs in a.m. Repeat chest x-ray If renal function improves further tomorrow patient can be discharged and will follow-up as outpatient.
--- NOTE | 2024-08-18 14:43 | XR ---
EXAMINATION TYPE: XR chest 1V DATE OF EXAM: 08/18/2024 COMPARISON: 08/14/2024 HISTORY: Shortness of breath TECHNIQUE: Single frontal view of the chest is obtained. FINDINGS: Diffuse interstitial pattern with bilateral consolidation and small effusion. No pneumotho rax. Heart enlarged. Osseous structures stable. IMPRESSION: Stable to pleural-parenchymal changes correlate for CHF otherwise consider interstitial pneumonia. [facility], , 08/18/2024 2:41 PM
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
--- NOTE | 2024-08-18 15:25 | P.PN ---
Subjective This is a pleasant 59 years old female with past medical history of multiple medical problem including advanced stage IV CKD. Presents because she was sleepy while she was driving to her work and she got concerned so she came to the emergency room. On admission she was diagnosed with acute pulmonary edema and acute CHF exacerbation. She has been evaluated by medical i d sales and signing agent and pulmonary service. Creatinine also worsened since admission 3.3 up to 4.8, with baseline 1.7-2.1. As such Lasix was held and patient was placed on sodium bicarb at 50 mL/h although patient is looks swollen in her extremities. Also she is morbidly ob nikunj with BMI of 49.3. However she is on room air with no dyspnea. She has significant bilateral leg edema. Patient states she complains from exertional dyspnea only if she works for a large distance. She denies chest pain abdominal pain. No urinary complaint. Ortiz catheter was placed during this admission. Her lisinopril, Lipitor and glipizide are on hold. Patient currently on hydralazine metoprolol and home doses Renal ultrasound was nondiagnostic Chest x-ray showing diffuse interstitial patchy opacity on both sides proBNP is elevated to 180 Vital stable, CBC is unremarkable. INR and troponin were unremarkable 08/16 Same as yesterday Looks fluid overloaded while sitting in chair however her breathing is okay She is on normal saline to help her kidney function, creatinine today stable 4.7 up to 4.8 Nephrology team considering hemodialysis. 08/17 Patient getting more tachypneic today and mildly hypoxic, she is saturating 84% on room air and 94% on 2 L Other than that she denies any other complaints Creatinine 5.0 today She is on sodium bicarb at 50 mL/h 08/18 pt feels fine and she isa any specific symptoms she sitting in chair all the time , her legs are swollen since admission with no much gross changes pt wants to be discharged since yesterday and today also she is off iv fluid and creatinine started to improve today down slightly to 4.7 if her creatinine continue to improve we may consider to discharge tomorrow , nephrology team on the case and their input is appreciated Objective - Vital Signs Vital signs: Vital Signs Temp 98.2 F 08/18/24 04:00 Pulse 66 08/18/24 12:00 Resp 16 08/18/24 12:00 BP 169/83 08/18/24 12:00 Pulse Ox 95 08/18/24 12:00 FiO2 40 08/13/24 21:03 Intake & Output 08/17/24 08/18/24 08/18/24 18:59 06:59 18:59 Intake Total 300 10 180 Output Total 1002 501 1 Balance -403 -827 179 Weight 145.6 kg 145.6 kg Intake: IV 10 Invasive Line 2 10 Oral 300 0 180 Output: Urine 1000 500 Stool 2 1 1 Other: Voiding Method Indwelling Catheter Indwelling Catheter Indwelling Catheter # Voids 0 2 1 # Bowel Movements 1 1 1 - Exam -GENERAL: The patient is alert and oriented x3, not in any acute distress. Well developed, well nourished. Obese HEENT: Pupils are round and equally reacting to light. EOMI. No scleral icterus. No conjunctival pallor. Normocephalic, atraumatic. No pharyngeal erythema. No thyromegaly. CARDIOVASCULAR: S1 and S2 present. No murmurs, rubs, or gallops. PULMONARY: Chest is clear to auscultation, no wheezing , no crackles. ABDOMEN: Soft, nontender, nondistended, normoactive bowel sounds. No palpable organomegaly. MUSCULOSKELETAL: No joint swelling or deformity. -EXTREMITIES: No cyanosis, clubbing,. Bilateral upper and lower extremity edema NEUROLOGICAL: Gross neurological examination did not reveal any focal deficits. SKIN: No rashes. no petechiae. - Labs CBC & Chem 7: 08/17/24 06:21 08/18/24 07:07 Labs: Abnormal Lab Results - Last 24 Hours (Table) 08/17/24 08/17/24 08/18/24 Range/Units 17:01 20:16 06:02 Chloride (98-107) mmol/L Carbon Dioxide (22-30) mmol/L BUN (7-17) mg/dL Creatinine (0.52-1.04) mg/dL Glucose (74-99) mg/dL POC Glucose (mg/dL) 199 H 229 H 267 H (70-110) mg/dL Total Protein (6.3-8.2) g/dL Albumin (3.5-5.0) g/dL 08/18/24 08/18/24 Range/Units 07:07 11:18 Chloride 111 H (98-107) mmol/L Carbon Dioxide 21 L (22-30) mmol/L BUN 96 H (7-17) mg/dL Creatinine 4.75 H (0.52-1.04) mg/dL Glucose 227 H (74-99) mg/dL POC Glucose (mg/dL) 175 H (70-110) mg/dL Total Protein 5.9 L (6.3-8.2) g/dL Albumin 3.1 L (3.5-5.0) g/dL Assessment and Plan Assessment: Acute kidney injury on chronic kidney disease stage IV most likely cardiorenal syndrome Acute pulmonary edema Acute CHF with echocardiogram on 08/14/2024 showing ejection fraction of 55 to 60% Obesity, with BMI 49.3 hypertension Diabetes mellitus Plan: IV fluid was discontinued since yesterday per signing agent Hold lisinopril and glipizide and water pill per signing agent patient informed and she agrees Continue with antihypertensive medication Monitor creatinine, if improved tomorrow may consider for discharge Several consultants on the case including cardiology pulmonary and signing agent Labs and medication were reviewed.. Continue same treatment. Continue with symptomatic treatment. Resume home medication. Monitor labs and vitals. DVT and GI prophylaxis. Further recommendations as per clinical course of the patient DVT prophylaxis: Subcutaneous heparin GI Prophylaxis: No need Prognosis is guarded
[2024-08-18 16:44] LABS: Glucose,Whole Blood 184 mg/dL (70-110)
[2024-08-18] MEDS: hydrALAZINE HCL 50 MG TAB PO SCH (16:53)
[2024-08-18 19:56] LABS: Glucose,Whole Blood 208 mg/dL (70-110)
[2024-08-19 05:51] LABS: Glucose,Whole Blood 204 mg/dL (70-110)
[2024-08-19 10:03] LABS: African American GFR (CKD) 12 (>60 ml/min/1.73 sqM); Anion Gap 9 mmol/L; Blood Urea Nitrogen 94 mg/dL (7-17); Calcium 8.5 mg/dL (8.4-10.2); Carbon Dioxide 19 mmol/L (22-30); Chloride 113 mmol/L (98-107); Glucose 126 mg/dL (74-99); Non-African American GFR(CKD) 10 (>60 ml/min/1.73 sqM); Potassium 4.6 mmol/L (3.5-5.1); Sodium 141 mmol/L (137-145)
[2024-08-19 11:35] LABS: Glucose,Whole Blood 131 mg/dL (70-110)
--- NOTE | 2024-08-19 11:48 | P.PN ---
Subjective HISTORY OF PRESENT ILLNESS: This is a 59-year-old female who was admitted to the hospital secondary to CHF and acute renal failure. Patient examined this morning at the bedside. Patient currently denies any chest pain or pressure. She is sitting up in the chair and denies any shortness of breath at the time of examination. Blood pressures r emain elevated with a recent reading of 169/83. Creatinine today is stable at 4.75. Echocardiogram from August 2024 shows an EF of 55% with severe concentric LVH, mild mitral regurgitation mild pulmonary hypertension thickened aortic valve. 08/19/2024 Patient examined this morning at the bedside. Patient currently denies chest pain or pressure. She denies shortness of breath. Blood pressure this morning 150/70. Creatinine today 4.42. PHYSICAL EXAM: VITAL SIGNS: Reviewed. GENERAL: Well-developed in no acute distress. NECK: Supple. No JVD or thyromegaly LUNGS: Respirations even and unlabored. Lungs diminished bilaterally HEART: Regular rate and rhythm. S1 and S2 heard. Systolic murmur noted. EXTREMITIES: Normal range of motion. No clubbing or cyanosis. Peripheral pulses intact. Bilateral lower extremity edema with chronic skin discoloration noted. ASSESSMENT: Acute hypoxic and hypercapnic respiratory failure Acute on chronic heart failure with preserved EF Acute on chronic kidney disease Severe concentric LVH Nonsustained ventricular tachycardia Hypertension Hyperlipidemia Diabetes Morbid obesity: BMI 49.3 Obstructive sleep apnea, not compliant with CPAP on an outpatient basis PLAN: Continue to avoid any nephrotoxic agents Increase hydralazine to 100 mg 3 times daily for optimal blood pressure control Nephrology following. Continue to monitor kidney function. Further recommendations pending patient course Currently stable from a cardiac perspective Patient does not currently follow with a heavy duty press operator outpatient. Upon discharge, patient will follow-up in the office with Dr. Rodriguez. Nurse practitioner note has been reviewed by physician. Signing provider agrees with the documented findings, assessment, and plan of care documented by FINANCIAL SALES ASSISTANT as a scribe. Objective - Vital Signs Vital signs: Vital Signs Temp 97.5 F L 08/19/24 08:00 Pulse 70 08/19/24 11:32 Resp 22 08/19/24 11:32 BP 166/75 08/19/24 11:32 Pulse Ox 94 L 08/19/24 11:32 FiO2 40 08/13/24 21:03 Intake & Output 08/18/24 08/19/24 08/19/24 18:59 06:59 18:59 Intake Total 360 10 240 Output Total 1 Balance 359 10 240 Weight 145.6 kg 146.5 kg Intake: IV 10 Invasive Line 2 10 Oral 360 240 Output: Stool 1 Other: Voiding Method Indwelling Catheter Toilet Toilet # Voids 1 1 1 # Bowel Movements 1 1 1 - Labs CBC & Chem 7: 08/17/24 06:21 08/19/24 08:46 Labs: Abnormal Lab Results - Last 24 Hours (Table) 08/18/24 08/18/24 08/19/24 Range/Units 16:42 19:54 05:50 Chloride (98-107) mmol/L Carbon Dioxide (22-30) mmol/L BUN (7-17) mg/dL Creatinine (0.52-1.04) mg/dL Glucose (74-99) mg/dL POC Glucose (mg/dL) 184 H 208 H 204 H (70-110) mg/dL 08/19/24 08/19/24 Range/Units 08:46 11:33 Chloride 113 H (98-107) mmol/L Carbon Dioxide 19 L (22-30) mmol/L BUN 94 H (7-17) mg/dL Creatinine 4.42 H (0.52-1.04) mg/dL Glucose 126 H (74-99) mg/dL POC Glucose (mg/dL) 131 H (70-110) mg/dL
--- NOTE | 2024-08-19 13:18 | P.PN ---
Subjective patient is seen for follow-up for acute kidney injury and chronic kidney disease. Renal function had worsened with diuresis and Lasix is currently on hold. Serum creatinine improved to 4.7 yesterday and further down to 4.4 today. No significant complaints today. 24 hour urine output noted at 1.5 L. Patient has an indwelling Ortiz catheter. No hypotension noted. Objective - Vital Signs Vital signs: Vital Signs Temp 97.5 F L 08/19/24 08:00 Pulse 70 08/19/24 11:32 Resp 22 08/19/24 11:32 BP 166/75 08/19/24 11:32 Pulse Ox 94 L 08/19/24 11:32 FiO2 40 08/13/24 21:03 Intake & Output 08/18/24 08/19/24 08/19/24 18:59 06:59 18:59 Intake Total 360 10 240 Output Total 1 Balance 359 10 240 Weight 145.6 kg 146.5 kg Intake: IV 10 Invasive Line 2 10 Oral 360 240 Output: Stool 1 Other: Voiding Method Indwelling Catheter Toilet Toilet # Voids 1 1 1 # Bowel Movements 1 1 1 - Exam patient is awake, comfortable, no acute distress. Examination of the heart S1 and S2 Examination of the lungs bilateral breath sounds are heard Abdomen is soft morbidly obese Examination of lower extremity shows chronic edema with chronic skin changes. SAWMILL MANAGER exam grossly intact - Labs CBC & Chem 7: 08/17/24 06:21 08/19/24 08:46 Labs: Abnormal Lab Results - Last 24 Hours (Table) 08/18/24 08/18/24 08/19/24 Range/Units 16:42 19:54 05:50 Chloride (98-107) mmol/L Carbon Dioxide (22-30) mmol/L BUN (7-17) mg/dL Creatinine (0.52-1.04) mg/dL Glucose (74-99) mg/dL POC Glucose (mg/dL) 184 H 208 H 204 H (70-110) mg/dL 08/19/24 08/19/24 Range/Units 08:46 11:33 Chloride 113 H (98-107) mmol/L Carbon Dioxide 19 L (22-30) mmol/L BUN 94 H (7-17) mg/dL Creatinine 4.42 H (0.52-1.04) mg/dL Glucose 126 H (74-99) mg/dL POC Glucose (mg/dL) 131 H (70-110) mg/dL Assessment and Plan Assessment: 1. Acute kidney injury secondary to ATN secondary to cardiorenal syndrome. Soy al function has improved with serum creatinine at 4.4. Nonoliguric. Has Ortiz catheter. 2. Chronic kidney disease stage IV secondary to diabetic kidney disease with baseline creatinine around 2 mg/dL 3. Volume overload. Improved with diuresis. 4. Diabetes mellitus. 5. Hypertension with chronic kidney disease. Controlled. 6. Hyperkalemia secondary to acute kidney injury and underlying RTA. Plan: Patient can be discharged from nephrology standpoint and follow-up as outpatient in 1 week. Lasix 40 mg daily upon discharge. Check BMP in 4-5 days post discharge.
[2024-08-19] MEDS: hydrALAZINE HCL 50 MG TAB PO SCH (15:09)
[2024-08-19 15:31] VITALS: BP 173/82; PULSE 83; RESP 20; TEMP 98.2
[2024-08-19 16:43] LABS: Glucose,Whole Blood 196 mg/dL (70-110)
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
[2024-08-19] MEDS: amLODIPine 10 MG TAB PO SCH (18:39)
--- NOTE | 2024-08-27 19:20 | P.DS ---
Providers Date of admission: 08/12/24 16:14 Attending physician: Rayne Mejia Consults: 08/12/24 13:21 Consult Physician Urgent Consulting Provider: Ulices Hinojosa Consult Reason/Comments: Acute pulmonary edema, hypercapnia Do you want consulting provider notified?: Yes 08/12/24 14:23 Consult Physician Routine Consulting Provider: Brandon Medina Consult Reason/Comments: chf Do you want consulting provider notified?: Yes 08/12/24 14:24 Consult Physician Routine Consulting Provider: Sam Lozada Consult Reason/Comments: arf Do you want consulting provider notified?: Yes 08/13/24 01:00 Consult Physician Urgent Consulting Provider: Colten Newberry Consult Reason/Comments: Dorsal tongue lesion Do you want consulting provider notified?: Yes Primary care physician: [facility] Course: diagnoses: Acute kidney injury on chronic kidney disease stage IV most likely cardiorenal syndrome Acute pulmonary edema Acute CHF with echocardiogram on 08/14/2024 showing ejection fraction of 55 to 60% Obesity, with BMI 49.3 hypertension Diabetes mellitus Hospital course: This is a pleasant 59 years old female with past medical history of multiple medical problem including advanced stage IV CKD. Presents because she was sleepy while she was driving to her work and she got concerned so she came to the emergency room. On admission she was diagnosed with acute pulmonary edema and acute CHF exacerbation. She has been evaluated by product mgmt dev manager and principal clerk typist and pulmonary service. Creatinine also worsened since admission 3.3 up to 4.8, with baseline 1.7-2.1. As such Lasix was held and patient was placed on sodium bicarb at 50 mL/h although patient is looks swollen in her extremities. On the day of discharge her creatinine start improving down to 5.05 down to 4.4. Nephrologists recommend to give Lasix time seven days a point to charge with close outpatient follow-up. Patient remains asymptomatic. She has swollen legs but she denies dyspnea. She denies coughing or chest pain. No other new complaint. Patient eager to go home. Patient was paid for discharge by all consultants including toe lining closer, product mgmt dev manager and principal clerk typist problems and management plan were discussed with the patient and he verbalized understanding and acceptance Patient was found stable and can be discharged home in guarded prognosis however he needs follow-up as an outpatient. Patient was instructed to follow up with PCP Dr. randall within one week and patient agrees Patient was instructed to follow up with product mgmt dev manager at the [facility] in one week, toe lining closer Dr. Damon in two weeks and principal clerk typist Dr. Camacho in one week. She verbalized understanding and acceptance Physical exam Gen: patient is a AAOx3, no distress CVS: S1-S2, RRR, no murmur Lungs: B/L CTA, no wheezing Abdomen: soft, no distention, no tenderness, positive bowel sounds Extremity: no leg edema or induration Time spent more than 35 minutes Patient Condition at Discharge: Poor Plan - Discharge Summary Discharge Rx Participant: No New Discharge Prescriptions: New hydrALAZINE HCL [Apresoline] 100 mg PO TID #90 tab Furosemide [Lasix] 40 mg PO DAILY 7 Days #7 tablet Continue amLODIPine [Norvasc] 10 mg PO DAILY glipiZIDE [Glucotrol] 2.5 mg PO AC-BRKFST Sodium Bicarbonate Tab 650 mg PO DAILY Metoprolol Tartrate [Lopressor] 50 mg PO BID Atorvastatin Calcium [Lipitor] 40 mg PO DAILY Discontinued lisinopriL [Zestril] 2.5 mg PO DAILY hydrALAZINE HCL 50 mg PO TID Discharge Medication List amLODIPine [Norvasc] 10 mg PO DAILY 12/15/20 [History] Atorvastatin Calcium [Lipitor] 40 mg PO DAILY 08/12/24 [History] Metoprolol Tartrate [Lopressor] 50 mg PO BID 08/12/24 [History] Sodium Bicarbonate Tab 650 mg PO DAILY 08/12/24 [History] glipiZIDE [Glucotrol] 2.5 mg PO AC-BRKFST 08/12/24 [History] Furosemide [Lasix] 40 mg PO DAILY 7 Days #7 tablet 08/19/24 [Rx] hydrALAZINE HCL [Apresoline] 100 mg PO TID #90 tab 08/19/24 [Rx] Follow up Appointment(s)/Referral(s): Colleen Rodriguez MD [STAFF PHYSICIAN] - 1 Week (CALL AND MAKE BALJEET) Ulices Hinojosa DO [Doctor of Osteopathic Medicine] - 2 Weeks (CALL AND MAKE BALJEET) [facility], [NON-STAFF] - (WILL CALL YOU :)) Sam Lozada DO [STAFF PHYSICIAN] - 1 Week (CALL AND MAKE BALJEET) Julio Cesar Randall MD [Primary Care Provider] - 1-2 days (CALL AND MAKE BALJEET) Ambulatory/Diagnostic Orders: Basic Metabolic Panel [LAB.AMB] Time Frame: 5 Days, Location: None Selected Patient Instructions/Handouts: Heart Failure (ER), Chronic Kidney Disease (ED), Uvulopalatopharyngoplasty (DC), Diabetic Hyperglycemia (ED) Discharge/Stand Alone Forms: Who Do I Call?, Community Resources, Personal Coffee Grower Discharge Disposition: HOME SELF-CARE
== END 2024-08-19 19:40 | disposition home or self-care (01) | DRG 291 ==
LOC: EC 06:24 → 3SCARD 16:14 → 3NCARDOBS 08-19 13:58 → 3SCARD 08-19 13:58
PROVIDERS: ADMIT Hospitalist; ATTEND Hospitalist
DX: I13.2 Hypertensive heart and chronic kidney disease with heart failure and with stage 5 chronic kidney disease, or end stage renal disease (principal); I50.21 Acute systolic (congestive) heart failure; J96.21 Acute and chronic respiratory failure with hypoxia; J96.22 Acute and chronic respiratory failure with hypercapnia; N17.0 Acute kidney failure with tubular necrosis; L03.115 Cellulitis of right lower limb; L03.116 Cellulitis of left lower limb; Z68.41 Body mass index [BMI] 40.0-44.9, adult; N17.9 Acute kidney failure, unspecified; N18.5 Chronic kidney disease, stage 5; I47.20 Ventricular tachycardia, unspecified; Z68.43 Body mass index [BMI] 50.0-59.9, adult; E11.22 Type 2 diabetes mellitus with diabetic chronic kidney disease; E11.42 Type 2 diabetes mellitus with diabetic polyneuropathy; E11.65 Type 2 diabetes mellitus with hyperglycemia; E66.01 Morbid (severe) obesity due to excess calories; G47.33 Obstructive sleep apnea (adult) (pediatric); K14.9 Disease of tongue, unspecified; I50.20 Unspecified systolic (congestive) heart failure; E87.5 Hyperkalemia; I27.20 Pulmonary hypertension, unspecified; E78.5 Hyperlipidemia, unspecified; I87.8 Other specified disorders of veins; J43.9 Emphysema, unspecified; Q23.81 Bicuspid aortic valve; Z79.84 Long term (current) use of oral hypoglycemic drugs; Z79.899 Other long term (current) drug therapy; Z87.891 Personal history of nicotine dependence; Z91.199 Patient's noncompliance with other medical treatment and regimen due to unspecified reason; Z99.81 Dependence on supplemental oxygen; Z88.0 Allergy status to penicillin
CPT/HCPCS: 36415; 36600; 51702; 71045; 71046; 76770; 80048; 80053; 82550; 82803; 82805; 83036; 83735; 83880; 84132; 84484; 85025; 87324; 87636; 93005; 93306; 94640; 94660; 94760; 96372; 96374; 99285